=== PATIENT | female | born 1940 | race Caucasian/White ===

== ENCOUNTER → 2016-07-12 | Outpatient (CLI) | payer OTHER ==
[2012-04-07 12:14] VITALS: BP 113/59
--- NOTE | 2016-07-12 22:54 | RAD ---
HISTORY: Cough, wheezing, bronchitis Study: Two views of the chest Comparison: None Findings: The trachea is midline. The cardiac silhouette is enlarged. The lungs are well expanded without fo yoselin infiltrate or effusion. Increased perihilar markings and mild bronchial wall thickening are not ed. The aorta is partially calcified and tortuous IMPRESSION: 1. No acute cardiopulmonary disease. 2. Radiographic findings of bronchitis. Reported By:
== END ==
LOC: RAD 13:50
PROVIDERS: ATTEND Internal Medicine
DX: R06.2 Wheezing (principal); J40 Bronchitis, not specified as acute or chronic
CPT/HCPCS: 71020

== ENCOUNTER 2017-05-22 10:31 | Inpatient (IN) | payer OTHER ==
[2017-05-22] MEDS ORDERED: NS 500 ML IV 500 ML IV ONE (11:09)
--- NOTE | 2017-05-22 11:57 | RAD ---
Examination: Portable AP chest History: SOB and CHF Comparison 07/12/2016 Findings: Continued upper normal heart size with essentially clear lungs and pleural spaces. Impression: No acute chest findings. Reported By:
[2017-05-22 12:01] LABS: BASOPHILS # (AUTO) 0.1 X10^3/uL (0.0-0.1); BASOPHILS % (AUTO) 0.6 % (0.2-1.0); EOSINOPHILS # (AUTO) 0.2 x10^3/uL (0.0-0.2); EOSINOPHILS % (AUTO) 1.8 % (0.9-2.9); LYMPHOCYTES # (AUTO) 1.2 X10^3/uL (1.3-2.9); LYMPHOCYTES % (AUTO) 9.6 % (21.0-51.0); MEAN CORPUSCULAR HEMOGLOBIN 19.8 pg (27.0-34.0); MEAN CORPUSCULAR HGB CONC 29.4 g/dL (33.0-35.0); MEAN CORPUSCULAR VOLUME 67.2 fL (80.0-100.0); MEAN PLATELET VOLUME 7.1 fL (7.4-11.0); MONOCYTES # (AUTO) 0.7 x10^3/uL (0.3-0.8); MONOCYTES % (AUTO) 5.5 % (0.0-13.0); NEUTROPHILS # (AUTO) 10.5 x10^3/uL (2.2-4.8); NEUTROPHILS % (AUTO) 82.5 % (42.0-75.0); PLATELET COUNT 288 X10^3/uL (150.0-450.0); RED BLOOD COUNT 2.42 X10^6/uL (3.5-5.4); WHITE BLOOD COUNT 12.7 X10^3/uL (3.6-10.0)
[2017-05-22 12:08] LABS: HEMATOCRIT 16.3 % (36.0-47.0); HEMOGLOBIN 4.8 g/dL (12.0-16.0)
[2017-05-22 12:17] LABS: CKMB % 5.6 % (<4); CREATINE KINASE MB 1.5 ng/mL (0-4.0); TROPONIN I 0.03 ng/mL (0-1.5)
[2017-05-22 12:20] LABS: HYPOCHROMASIA 3+; MICROCYTOSIS 1+; PLATELET MORPHOLOGY COMMENT NORMAL (NORMAL)
[2017-05-22] MEDS ORDERED: BENADRYL INJ 50 MG VIAL IVP ONE ×2 (12:49→22:21)
[2017-05-22] MEDS ORDERED: TYLENOL 325 MG TAB PO ONE ×2 (12:49→22:23)
[2017-05-22 14:18] LABS: ALBUMIN 3.2 g/dL (3.4-5.0); CALCIUM 9.7 mg/dL (8.5-10.1); CARBON DIOXIDE 24.5 mmol/L (21-32); COR CA(FOR HYPOALB) 10.3 mg/dL (8.5-10.1); CREATININE 1.17 mg/dL (0.55-1.02); TOTAL PROTEIN 6.6 g/dL (6.4-8.2)
--- NOTE | 2017-05-22 14:20 | DR.H&P ---
H&P - History & Physical for Day of: H&P Date: 05/22/17 - Chief Complaint Chief Complaint: SOB, WEAKNESS, DIZZINESS - Allergies Allergies/Adverse Reactions: Allergies Allergy/AdvReac Type Severity Reaction Status Date / Time amoxicillin Allergy Verified 05/22/17 11:41 - History of Present Illness History of Present Illness: 77WF DIRECT ADMIT FROM DR DOUGLAS OFFICE WITH SYMPTOMATIC ANEMIA, DIFFUSE WEAKNESS, DIZZINESS, SOB EVEN AT REST. PT STATES SHE HAD COLONOSCOPY PER DR STEINBERG IN [place] THIS PAST THURSDAY, HAD ONE POLYP REMOVED, WAS TOLD "NO BLEEDING" PT ALSO HAD EGD. PT HAD BEEN HAVING ANEMIA FOR SEVERAL WEEKS. 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 PLAN TO ADMIT FOR EVALUATION OF ANEMIA AND BLOOD TRANSFUSION - Past Medical History Past Medical History: Arthritis, CHF, Coronary Artery Disease, Diabetes, Dyslipidemia, GERD, Hypertension Additional Medical History: AFIB - Past Surgical History Surgical History: Hysterectomy, Joint Replacement, Ortho Surgery - Family History Family Medical History: Coronary Artery Disease, Hypertension - Social History Does patient currently use any type of tobacco product: No Have you used tobacco products in the last 12 months: No Type of Tobacco Use: None Does any household member use tobacco: No Alcohol Use: None Drug Use: None - Review of Systems Constitutional: Weakness Eyes: No Symptoms Reported ENT: No Symptoms Reported Respiratory: Shortness of Breath Cardiovascular: Light Headedness Gastrointestinal: Nausea, Diarrhea Genitourinary: No Symptoms Reported Musculoskeletal: Back Pain Skin: No Symptoms Reported Neurological: Weakness - Physical Exam Vital Signs: Blood Pressure [Left Arm] 113/59 Blood Pressure 113/59 Oriented: Normal Eyes: Normal Ear: Normal Nose: Normal Throat: Normal Respiratory: RLL Diminished, LLL Diminished Cardiovascular: Irregular, Edema : Normal Auscultation: Bowel Sounds: Normal Palpation: Normal Tenderness: Epigastric Skin: Decreased Turgur, Other (DIFFUSE PALLOR) Musculoskeletal: Right, Left, Knee, Back:Lumbar Mood Description: Calm Speech Pattern: Clear, Appropriate - Assessment/Plan (1) SOB (shortness of breath) Status: Acute Plan: admit patient to ICU, admission labs CBC CMP, stool studies, cardiac profile EKG and chest x-ray on admission, urinalysis. Type and cross and transfuse 2 units of packed red blood cells per transfusion protocol, sliding scale insulin for blood sugar, hold anticoagulant therapy. Repeat a.m. labs, CT of the chest with contrast to further evaluate shortness of breath,r/o PE. history of pulmonary nodules. (2) Anemia Status: Acute (3) Upper GI bleed Status: Acute (4) Afib Status: Acute (5) CHF (congestive heart failure) Status: Acute (6) HTN (hypertension) Status: Acute (7) Diabetes Status: Acute
[2017-05-22 15:14] VITALS: BMI 40.6
[2017-05-22] MEDS ORDERED: LASIX IVP ONE (16:56)
[2017-05-22] MEDS: K-DUR TAB 20 MEQ PO PRN (17:13)
[2017-05-22 17:56] LABS: BILIRUBIN,URINE NEGATIVE (NEGATIVE); BLOOD/HEMOGLOBIN,URINE 4+ (NEGATIVE); GLUCOSE, URINE NEGATIVE (NEGATIVE); KETONES,URINE NEGATIVE (NEGATIVE); LEUKOCYTE ESTERASE ,URINE NEGATIVE (NEGATIVE); NITRITES,URINE NEGATIVE (NEGATIVE); PROTEIN,URINE 1+ (NEGATIVE); UROBILINOGEN,URINE NORMAL (NORMAL)
[2017-05-22 17:59] LABS: CKMB % 4.4 % (<4); CREATINE KINASE MB 1.2 ng/mL (0-4.0); TROPONIN I 0.03 ng/mL (0-1.5)
[2017-05-22 18:00] LABS: APPEARANCE,URINE CLEAR (CLEAR); COLOR,URINE YELLOW (YELLOW)
[2017-05-22 18:12] LABS: AMORPHOUS SEDIMENT,UR TRACE /HPF (NEGATIVE); BACTERIA,URINE NEGATIVE /HPF (NEGATIVE); SQUAMOUS EPITHELIAL CELL,UR RARE /HPF (NEGATIVE)
[2017-05-22] MEDS: SNACK - Diabetic Appropriate PO SCH (20:00)
[2017-05-22 23:34] LABS: TROPONIN I 0.04 ng/mL (0-1.5)
[2017-05-23 07:02] LABS: ALANINE AMINOTRANSFERASE 18 Units/L (12-78); ALBUMIN 2.8 g/dL (3.4-5.0); ALKALINE PHOSPHATASE 64 Units/L (46-116); ASPARTATE AMINO TRANSFERASE 12 Units/L (15-37); BLOOD UREA NITROGEN 21 mg/dL (7-18); CALCIUM 9.2 mg/dL (8.5-10.1); CARBON DIOXIDE 27.5 mmol/L (21-32); CHLORIDE 105 mmol/L (98-107); COR CA(FOR HYPOALB) 10.2 mg/dL (8.5-10.1); COR NA(FOR HYPERGLY) 141 mmol/L (136-145); CREATININE 0.92 mg/dL (0.55-1.02); SODIUM 140 mmol/L (136-145); eGFR BLACK RACES > 60 (>60); eGFR NON BLACK RACES > 60 (>60)
[2017-05-23 08:41] LABS: BASOPHILS # (AUTO) 0.1 X10^3/uL (0.0-0.1); BASOPHILS % (AUTO) 0.6 % (0.2-1.0); EOSINOPHILS # (AUTO) 0.3 x10^3/uL (0.0-0.2); EOSINOPHILS % (AUTO) 3.2 % (0.9-2.9); LYMPHOCYTES # (AUTO) 2.3 X10^3/uL (1.3-2.9); MEAN CORPUSCULAR HGB CONC 31.2 g/dL (33.0-35.0); MEAN CORPUSCULAR VOLUME 70.3 fL (80.0-100.0); MEAN PLATELET VOLUME 7.7 fL (7.4-11.0); MONOCYTES # (AUTO) 0.8 x10^3/uL (0.3-0.8); MONOCYTES % (AUTO) 7.8 % (0.0-13.0); NEUTROPHILS # (AUTO) 6.4 x10^3/uL (2.2-4.8); NEUTROPHILS % (AUTO) 65.4 % (42.0-75.0); PLATELET COUNT 241 X10^3/uL (150.0-450.0); RED BLOOD COUNT 2.77 X10^6/uL (3.5-5.4); RED CELL DISTRIBUTION WIDTH 19.5 % (11.6-16.5); WHITE BLOOD COUNT 9.8 X10^3/uL (3.6-10.0)
[2017-05-23 08:52] LABS: HEMATOCRIT 19.5 % (36.0-47.0); HEMOGLOBIN 6.1 g/dL (12.0-16.0)
[2017-05-23 08:53] LABS: PLATELET MORPHOLOGY COMMENT NORMAL (NORMAL)
[2017-05-23 08:55] LABS: ANISOCYTOSIS 2+; HYPOCHROMASIA 2+; MICROCYTOSIS 1+
[2017-05-23 10:49] LABS: IRON 10 ug/dL (50-175); TOTAL IRON BINDING CAPACITY 459 ug/dL (250-450)
[2017-05-23] MEDS ORDERED: BENADRYL INJ 50 MG VIAL ONE (12:01)
[2017-05-23] MEDS ORDERED: TYLENOL 325 MG TAB PO ONE ×2 (12:01→12:04)
[2017-05-23] MEDS ORDERED: BENADRYL INJ 50 MG VIAL IVP ONE (12:03)
[2017-05-23] MEDS ORDERED: NS 500 ML IV 500 ML IV ONE (12:14)
--- NOTE | 2017-05-23 12:17 | CT ---
HISTORY: Shortness of breath. History pulmonary nodules. Study: Computed tomography of the chest: Multiple axial images were obtained throughout the chest a fter the injection of intravascular contrast using CTA protocol. Reconstructed images in mid images submitted. Comparison: PA and lateral chest 07/12/2016, 05/22/2017 portable chest Findings: Examination of the lung parenchyma demonstrates a tiny noncalcified nodule in the right upper lobe me asuring approximately 4 mm in maximum dimension. A small pleural base nodule is noted posteriorly. There are focal areas of scarring within the lung parenchyma bilaterally. There are small pleural-ba sed densities present in several areas suggesting scarring. No parenchymal infiltrates are identifie d. A small nodule is present in the left lateral costophrenic angle measuring approximately 4 mm in maximum dimension. There is enlargement of the right lobe of the thyroid with what appears to be a hypodense nodule rosey uring about 13 mm in maximum dimension. Nonemergent thyroid ultrasound recommended. I see no eviden ce of supraclavicular adenopathy or axillary adenopathy. No evidence of mediastinal adenopathy is id entified. There are small mediastinal lymph nodes present. The heart size is borderline enlarged. There is significant 3 vessel coronary arterial calcification. No appreciable pericardial effusion i s noted. The thoracic aorta is normal in its appearance. Mild calcification is noted. The descending thoraci c aorta is normal. The main pulmonary artery is dilated to 4.2 cm. This suggest pulmonary arterial hypertension. The r ight and left pulmonary arteries are mildly dilated. There appears to be a small filling defect with in a proximal branch of the right main pulmonary artery subtending the right lower lobe. There are w hat appear to most likely be smaller filling defects distally. There is mild reflux of contrast into the inferior vena cava. Examination of the bone windows demonstrates the mild to moderate thoracic spondylosis. IMPRESSION: 1. There appears to be a small partial branch occlusion of the 1st order branches of the right main pulmonary artery as it subtends the right lower lobe. There may be smaller subsegmental defects as w ell. No large central pulmonary emboli are noted. 2. Borderline cardiomegaly with significant coronary arterial calcification. 3. Findings suggesting pulmonary arterial hypertension. 4. Small pulmonary nodules. 5. Nodule in the right thyroid gland. Follow-up nonemergent thyroid ultrasound may be of assistance . Reported By:
[2017-05-23 15:10] LABS: TRANSFERRIN 366 mg/dL (202-364)
[2017-05-23] MEDS: COLACE CAP 100 MG PO SCH ×2 (15:53→20:20)
[2017-05-23] MEDS: PROTONIX INJ 40 MG VIAL IVP SCH ×2 (15:53→20:20)
[2017-05-23 17:13] LABS: HEMATOCRIT 24.2 % (36.0-47.0); HEMOGLOBIN 7.6 g/dL (12.0-16.0)
[2017-05-23] MEDS ORDERED: HEPARIN SODIUM INJ 5000 UNITS IVP ONE (19:08)
[2017-05-23] MEDS: HEPARIN SODIUM IN D5W 25,000 UNITS/500 ML BAG IV PRN (20:28)
[2017-05-23] MEDS: SNACK - Diabetic Appropriate PO SCH (23:46)
[2017-05-24 02:24] LABS: HEMATOCRIT 22.3 % (36.0-47.0); HEMOGLOBIN 7.1 g/dL (12.0-16.0)
[2017-05-24] MEDS ORDERED: HEPARIN SODIUM INJ 5000 UNITS IVP ONE ×2 (03:07→14:38)
[2017-05-24 06:37] LABS: BASOPHILS # (AUTO) 0.2 X10^3/uL (0.0-0.1); BASOPHILS % (AUTO) 1.4 % (0.2-1.0); EOSINOPHILS # (AUTO) 0.4 x10^3/uL (0.0-0.2); EOSINOPHILS % (AUTO) 2.9 % (0.9-2.9); HEMATOCRIT 22.5 % (36.0-47.0); LYMPHOCYTES # (AUTO) 2.5 X10^3/uL (1.3-2.9); LYMPHOCYTES % (AUTO) 16.6 % (21.0-51.0); MEAN CORPUSCULAR HEMOGLOBIN 22.3 pg (27.0-34.0); MEAN CORPUSCULAR HGB CONC 31.1 g/dL (33.0-35.0); MEAN CORPUSCULAR VOLUME 71.8 fL (80.0-100.0); MEAN PLATELET VOLUME 7.4 fL (7.4-11.0); MONOCYTES % (AUTO) 6.4 % (0.0-13.0); NEUTROPHILS # (AUTO) 10.9 x10^3/uL (2.2-4.8); NEUTROPHILS % (AUTO) 72.7 % (42.0-75.0); RED BLOOD COUNT 3.14 X10^6/uL (3.5-5.4)
[2017-05-24 06:44] LABS: ALBUMIN 2.9 g/dL (3.4-5.0); ALKALINE PHOSPHATASE 72 Units/L (46-116); CHLORIDE 104 mmol/L (98-107); eGFR BLACK RACES > 60 (>60); eGFR NON BLACK RACES > 60 (>60)
[2017-05-24 07:02] LABS: ALANINE AMINOTRANSFERASE 19 Units/L (12-78); ASPARTATE AMINO TRANSFERASE 15 Units/L (15-37); BLOOD UREA NITROGEN 16 mg/dL (7-18); CALCIUM 9.8 mg/dL (8.5-10.1); CARBON DIOXIDE 27.2 mmol/L (21-32); COR CA(FOR HYPOALB) 10.7 mg/dL (8.5-10.1); COR NA(FOR HYPERGLY) 141 mmol/L (136-145); CREATININE 0.84 mg/dL (0.55-1.02); SODIUM 140 mmol/L (136-145); TOTAL PROTEIN 6.2 g/dL (6.4-8.2)
[2017-05-24 07:03] LABS: PLATELET COUNT 213 X10^3/uL (150.0-450.0)
[2017-05-24 07:05] LABS: PLATELET MORPHOLOGY COMMENT NORMAL (NORMAL)
[2017-05-24 07:06] LABS: ANISOCYTOSIS 3+; HYPOCHROMASIA 2+; MICROCYTOSIS 1+; TARGET CELLS SLIGHT
[2017-05-24] MEDS ORDERED: DEXFERRUM or INFED 250 MG in NS 500 ML IV 500 ML IV ONE ×2 (09:00→15:00)
[2017-05-24] MEDS ORDERED: DEXFERRUM or INFED 25 MG in NS 100 ML IV 100 ML IV ONE ×2 (09:00→14:00)
--- NOTE | 2017-05-24 09:38 | RAD ---
HISTORY: Chest pain Study: Single-view chest. Comparison: 05/23/2017. Findings: The trachea is midline. The cardiac silhouette is enlarged but unchanged from prior. The lungs are clear without focal infiltrate or effusion. The bony thorax is unremarkable. IMPRESSION: Cardiomegaly without acute cardiopulmonary disease or changes. Reported By:
[2017-05-24] MEDS: PROTONIX INJ 40 MG VIAL IVP SCH ×2 (11:26→21:10)
[2017-05-24] MEDS: HEPARIN SODIUM IN D5W 25,000 UNITS/500 ML BAG IV PRN (11:40)
[2017-05-24] MEDS ORDERED: NS 500 ML IV 500 ML IV ONE (11:56)
[2017-05-24 13:55] LABS: HEMATOCRIT 24.6 % (36.0-47.0); HEMOGLOBIN 7.7 g/dL (12.0-16.0)
[2017-05-24] MEDS: HumuLIN R SUBCUT PRN ×2 (17:55→21:10)
[2017-05-24] MEDS: COLACE CAP 100 MG PO SCH (21:10)
[2017-05-24] MEDS: SNACK - Diabetic Appropriate PO SCH (21:15)
[2017-05-24 22:44] LABS: HEMATOCRIT 22.5 % (36.0-47.0); HEMOGLOBIN 7.1 g/dL (12.0-16.0)
[2017-05-25] MEDS: HEPARIN SODIUM IN D5W 25,000 UNITS/500 ML BAG IV PRN (02:32)
[2017-05-25 04:06] LABS: BASOPHILS # (AUTO) 0.1 X10^3/uL (0.0-0.1); BASOPHILS % (AUTO) 0.7 % (0.2-1.0); EOSINOPHILS # (AUTO) 0.4 x10^3/uL (0.0-0.2); EOSINOPHILS % (AUTO) 2.8 % (0.9-2.9); HEMATOCRIT 21.9 % (36.0-47.0); LYMPHOCYTES # (AUTO) 2.2 X10^3/uL (1.3-2.9); LYMPHOCYTES % (AUTO) 15.7 % (21.0-51.0); MEAN CORPUSCULAR HEMOGLOBIN 22.6 pg (27.0-34.0); MEAN CORPUSCULAR HGB CONC 31.5 g/dL (33.0-35.0); MEAN CORPUSCULAR VOLUME 71.7 fL (80.0-100.0); MEAN PLATELET VOLUME 7.2 fL (7.4-11.0); MONOCYTES # (AUTO) 1.1 x10^3/uL (0.3-0.8); MONOCYTES % (AUTO) 7.9 % (0.0-13.0); NEUTROPHILS % (AUTO) 72.9 % (42.0-75.0); PLATELET COUNT 284 X10^3/uL (150.0-450.0); RED BLOOD COUNT 3.05 X10^6/uL (3.5-5.4); WHITE BLOOD COUNT 13.8 X10^3/uL (3.6-10.0)
[2017-05-25 04:07] LABS: ALANINE AMINOTRANSFERASE 18 Units/L (12-78); ALBUMIN 2.7 g/dL (3.4-5.0); ALKALINE PHOSPHATASE 75 Units/L (46-116); ASPARTATE AMINO TRANSFERASE 18 Units/L (15-37); BLOOD UREA NITROGEN 13 mg/dL (7-18); CALCIUM 9.5 mg/dL (8.5-10.1); CHLORIDE 105 mmol/L (98-107); COR CA(FOR HYPOALB) 10.5 mg/dL (8.5-10.1); COR NA(FOR HYPERGLY) 141 mmol/L (136-145); CREATININE 0.88 mg/dL (0.55-1.02); SODIUM 140 mmol/L (136-145); TOTAL PROTEIN 6.2 g/dL (6.4-8.2); eGFR BLACK RACES > 60 (>60); eGFR NON BLACK RACES > 60 (>60)
[2017-05-25 04:15] LABS: HEMOGLOBIN 6.9 g/dL (12.0-16.0)
[2017-05-25 04:29] LABS: ANISOCYTOSIS 1+; HYPOCHROMASIA 2+; MICROCYTOSIS 1+; PLATELET MORPHOLOGY COMMENT NORMAL (NORMAL)
--- NOTE | 2017-05-25 07:25 | RAD ---
History: CAD, asthma, diabetes Study: AP chest, comparison 05/24/2017 Findings: AP upright chest labeled 707 hours shows the cardiac silhouette to be enlarged. The pulmona ry vasculature is mildly congested. No consolidation or pleural effusion is seen. Impression: Cardiomegaly with mild vascular congestion. No overt CHF or pneumonia is seen. Reported By:
[2017-05-25] MEDS ORDERED: LASIX IVP ONE (09:33)
[2017-05-25] MEDS ORDERED: K-DUR TAB 20 MEQ PO SCH (10:00)
[2017-05-25] MEDS: K-DUR TAB 20 MEQ PO PRN (10:06)
[2017-05-25] MEDS: PROTONIX INJ 40 MG VIAL IVP SCH (10:06)
[2017-05-25] MEDS: HumuLIN R SUBCUT PRN (11:16)
[2017-05-25] MEDS ORDERED: HumuLIN R SUBCUT PRN (12:02)
[2017-05-25] MEDS ORDERED: K-DUR TAB 20 MEQ PO PRN (12:02)
[2017-05-25] MEDS ORDERED: HEPARIN SODIUM IN D5W 25,000 UNITS/500 ML BAG IV PRN (12:02)
[2017-05-25 12:04] LABS: HEMATOCRIT 24.8 % (36.0-47.0); HEMOGLOBIN 7.8 g/dL (12.0-16.0)
[2017-05-25 15:40] VITALS: BP 147/62
[2017-05-25] MEDS ORDERED: SNACK - Diabetic Appropriate PO SCH ×2 (20:00)
[2017-05-25] MEDS ORDERED: ZOCOR TAB 20 MG PO SCH ×2 (21:00)
[2017-05-25] MEDS ORDERED: COLACE CAP 100 MG PO SCH (21:00)
[2017-05-26] MEDS ORDERED: LANOXIN PO SCH ×2 (09:00)
[2017-05-26] MEDS ORDERED: NexIUM PO SCH ×2 (09:00)
[2017-05-26] MEDS ORDERED: REGLAN TAB 10 MG PO SCH ×2 (09:00)
[2017-05-26] MEDS ORDERED: FOLIC ACID TAB 1 MG PO SCH ×2 (09:00)
[2017-05-29 07:17] LABS: ANTI-NUCLEAR ANTIBODY TEST None Detected (None Detected); CANCER ANTIGEN 27.29 13.8 U/mL (0.0-40.0)
[2017-06-01 06:50] LABS: PROTEIN C ACTIVITY SEE COMMENTS %
== END 2017-05-25 15:25 | disposition short-term general hospital (02) | DRG 811 ==
LOC: ICU 10:31 → UNDOADMIN 10:31 → ICU 10:41
PROVIDERS: ADMIT Internal Medicine; ATTEND Internal Medicine
PROC: 30233N1 Transfusion of Nonautologous Red Blood Cells into Peripheral Vein, Percutaneous Approach (ICD-10-PCS; principal; 2017-05-22)
PROC: 30233N1 Transfusion of Nonautologous Red Blood Cells into Peripheral Vein, Percutaneous Approach (ICD-10-PCS; 2017-05-22)
PROC: 30233N1 Transfusion of Nonautologous Red Blood Cells into Peripheral Vein, Percutaneous Approach (ICD-10-PCS; 2017-05-23)
DX: D64.89 Other specified anemias (principal); I26.99 Other pulmonary embolism without acute cor pulmonale; K92.2 Gastrointestinal hemorrhage, unspecified; R53.1 Weakness; Z79.01 Long term (current) use of anticoagulants; I48.91 Unspecified atrial fibrillation; E11.65 Type 2 diabetes mellitus with hyperglycemia; E78.2 Mixed hyperlipidemia; K21.9 Gastro-esophageal reflux disease without esophagitis; R94.31 Abnormal electrocardiogram [ECG] [EKG]; D50.8 Other iron deficiency anemias; I10 Essential (primary) hypertension; I50.9 Heart failure, unspecified
CPT/HCPCS: 36415; 36430; 71045; 71275; 80053; 81001; 81241; 82270; 82378; 82550; 82553; 82607; 82728; 82746; 83540; 83550; 84311; 84466; 84484; 85014; 85018; 85025; 85303; 85306; 85730; 86308; 86316; 86850; 86900; 86901; 86922; 87045; 87427; 87493; 87899; 93005; 93010; A4222; C9113; P9016; J1200; J1644; J1750; J1815; J1940

== ENCOUNTER 2021-04-05 09:42 | Observation (INO) ==
--- NOTE | 2021-04-05 12:24 | DR.H&P ---
H&P - History & Physical for Day of: H&P Date: 04/05/21 - Chief Complaint Chief Complaint: SWELLING ALL OVER, WEAKNESS AND SOB - History of Present Illness History of Present Illness: PT IS 81 WF DIRECT ADMIT FROM DR BELLO OFFICE WITH CO SWELLING ALL OVER, CHF EXACERBATIN FAILED OUTPT TREATMENT. PT HAS TAKING LASIX PO AND IM LASIX WITH ONLY 3LBS WEIGHT LOSS, REPORTS PER HOME HEALTH TOTAL WEIGHT GAIN 20LBS FROM BASE LINE IN PAST 3 WEEKS. PT HAS PMH OF AFIB, ON ELIQUIS, OA, CHF, CAD, DM. PT ADMITTED FOR TREATMENT OF ACUTE ILLNESS. - Past Medical History Past Medical History: Coronary Artery Disease, Hypertension, Dyslipidemia, Diabetes, GERD, Arthritis, CHF Additional Medical History: AFIB - Past Surgical History Surgical History: Hysterectomy, Joint Replacement, Ortho Surgery - Family History Family Medical History: Coronary Artery Disease, Hypertension - Social History Does patient currently use any type of tobacco product: No Have you used tobacco products in the last 12 months: No Type of Tobacco Use: None Does any household member use tobacco: No Alcohol Use: None Drug Use: None Risks, benefits, and alternatives of opioids discussed: No Prescription drug monitoring program results: PDMP reviewed and no concerns identified - Medications Home Medications: amoxicillin Allergy (Verified 05/22/17 11:41) - Review of Systems Constitutional: Weakness Eyes: No Symptoms Reported ENT: No Symptoms Reported Respiratory: Shortness of Breath, SOB with Excertion Cardiovascular: Edema Gastrointestinal: No Symptoms Reported Genitourinary: No Symptoms Reported Musculoskeletal: No Symptoms Reported Skin: No Symptoms Reported Neurological: Weakness - Physical Exam Vital Signs: Blood Pressure [Left Arm] 96/52 Oriented: Normal Eyes: Normal Ear: Normal Nose: Normal Throat: Normal Respiratory: RLL Diminished, LLL Diminished Cardiovascular: Normal : Normal Auscultation: Bowel Sounds: Normal Tenderness: Normal Skin: Decreased Turgur Musculoskeletal: Right, Left, Shoulder, Back:Lumbar Psychiatric: Anxiety Affect: Angry Speech Pattern: Clear, Appropriate - Assessment/Plan (1) CHF (congestive heart failure) Status: Acute Plan: ADMIT, SERIAL CE, EKG. CXR BNP ON ADMISSION. STRICT I &OS, DAILY WEIGHTS. VERIFY HOME MEDICATION. BP CONTROL, BS CONTROL, CONTINUE ELIQUIS (2) SOB (shortness of breath) Status: Acute (3) Anemia Status: Acute (4) Afib Status: Acute (5) HTN (hypertension) Status: Acute (6) Diabetes Status: Acute - Allergies Allergies/Adverse Reactions: Allergies Allergy/AdvReac Type Severity Reaction Status Date / Time amoxicillin Allergy Verified 05/22/17 11:41
[2021-04-05 12:26] LABS: BASOPHILS % (AUTO) 0.7 % (0.2-1.0); EOSINOPHILS # (AUTO) 0.2 x10^3/uL (0.0-0.2); EOSINOPHILS % (AUTO) 3.1 % (0.9-2.9); HEMATOCRIT 30.2 % (36.0-47.0); HEMOGLOBIN 9.8 g/dL (12.0-16.0); LYMPHOCYTES # (AUTO) 1.4 X10^3/uL (1.3-2.9); MEAN CORPUSCULAR HEMOGLOBIN 28.4 pg (27.0-34.0); MEAN CORPUSCULAR HGB CONC 32.5 g/dL (33.0-35.0); MEAN CORPUSCULAR VOLUME 87.4 fL (80.0-100.0); MEAN PLATELET VOLUME 7.6 fL (7.4-11.0); MONOCYTES # (AUTO) 0.5 x10^3/uL (0.3-0.8); NEUTROPHILS # (AUTO) 4.1 x10^3/uL (2.2-4.8); NEUTROPHILS % (AUTO) 66.2 % (42.0-75.0); PLATELET COUNT 181 X10^3/uL (150.0-450.0); RED BLOOD COUNT 3.46 X10^6/uL (3.5-5.4); RED CELL DISTRIBUTION WIDTH 22.8 % (11.6-16.5); WHITE BLOOD COUNT 6.2 X10^3/uL (3.6-10.0)
[2021-04-05 12:42] LABS: ANISOCYTOSIS 2+; OVALOCYTES 1+; PLATELET MORPHOLOGY COMMENT NORMAL (NORMAL)
[2021-04-05 12:44] LABS: MICROCYTOSIS SLIGHT
[2021-04-05 12:46] LABS: ALANINE AMINOTRANSFERASE 37 Units/L (12-78); ALBUMIN 3.3 g/dL (3.4-5.0); ALKALINE PHOSPHATASE 104 Units/L (46-116); ASPARTATE AMINO TRANSFERASE 18 Units/L (15-37); BLOOD UREA NITROGEN 36 mg/dL (7-18); CALCIUM 9.6 mg/dL (8.5-10.1); CARBON DIOXIDE 38.2 mmol/L (21-32); CHLORIDE 105 mmol/L (98-107); CKMB % 3.6 % (<4); COR CA(FOR HYPOALB) 10.2 mg/dL (8.5-10.1); COR NA(FOR HYPERGLY) 149 mmol/L (136-145); CREATINE KINASE 28 Units/L (26-192); CREATINE KINASE MB < 1.0 ng/mL (0-4.0); CREATININE 1.36 mg/dL (0.55-1.02); MAGNESIUM 1.9 mg/dL (1.7-2.9); SODIUM 148 mmol/L (136-145); TOTAL PROTEIN 6.5 g/dL (6.4-8.2); TROPONIN I < 0.02 ng/mL (0-1.5); eGFR NON BLACK RACES 39 (>60)
[2021-04-05] MEDS ORDERED: LASIX IVP SCH (13:00)
--- NOTE | 2021-04-05 13:18 | RAD ---
HISTORYCHF, SOBSTUDYCHEST, PA/LAT ADULTCOMPARISONNoneFINDINGSThe cardiomediastinal silhouette is widened. Left-sided pacer and pacer wires demonstrate expected positioning. Pulmonary vascular congestion and increased interstitial markings. No acute airspace disease. No pneumothorax. The bony thorax appears intact.IMPRESSIONCardiomegaly and congestion without edema.Electronically signed by: CHANTELLE STONE (Apr 05, 2021 13:16:48)
[2021-04-05 16:29] LABS: BILIRUBIN,URINE NEGATIVE (NEGATIVE); BLOOD/HEMOGLOBIN,URINE NEGATIVE (NEGATIVE); GLUCOSE, URINE NEGATIVE (NEGATIVE); KETONES,URINE NEGATIVE (NEGATIVE); LEUKOCYTE ESTERASE ,URINE NEGATIVE (NEGATIVE); NITRITES,URINE NEGATIVE (NEGATIVE); PROTEIN,URINE NEGATIVE (NEGATIVE); UROBILINOGEN,URINE NORMAL (NORMAL)
[2021-04-05 16:48] LABS: APPEARANCE,URINE CLEAR (CLEAR); COLOR,URINE STRAW (YELLOW)
--- NOTE | 2021-04-05 21:02 | PCM.PROG ---
Progress Note - Subjective Subjective: PATIENT IS AN 81 YO WF WHO WAS ADMITTED DUE TO CHF, WEIGHT, GAIN, EDEMA, SOB. PATIENT REPORTS SOME IMPROVEMENT IN BREATHING. PATIENT HAS HAD AN ADEQUATE OUTPUT SINCE ADMISSION WITH ADMIN OF LASIX. PATIENT REPORTS WEAKNESS. NO OTHER CONCERNS PRESENT. - Past Medical Family Social History Past Med/Fam/Surg Hx: No changes since H&P Allergies: Allergies amoxicillin Allergy (Verified 05/22/17 11:41) - Review of Systems ROS: No change since H&P - Vital Signs and I&O's Vital Signs: Temperature 97.9 F Pulse Rate [Left Brachial] 70 Respiratory Rate 20 Blood Pressure [Left Arm] 107/57 Blood Pressure 125/72 O2 Sat by Pulse Oximetry 90 Intake and Output: Intake & Output 04/02/21 04/03/21 04/04/21 04/05/21 23:59 23:59 23:59 23:59 Intake Total 580 / 580 Output Total 900 / 900 Balance -320 / -320 - Physical Exam Oriented: Normal, Time, Person, Place Eyes: Normal Ear: Normal Nose: Normal Throat: Normal Respiratory: Generalized, Diminished, Rales Cardiovascular: Normal, Edema (+3 PITTING EDEMA) : Normal Auscultation: Bowel Sounds: Normal Palpation: Normal Tenderness: Normal Skin: Normal Musculoskeletal: Right, Left, Shoulder, Back:Lumbar, Instability Psychiatric: Normal Mood Description: Calm Affect: Normal Speech Pattern: Clear, Appropriate - Laboratory and Diagnostics Result Diagrams: 04/05/21 12:17 04/05/21 12:17 Labs: Laboratory WBC 6.2 X10^3/uL (3.6-10.0) 04/05/21 12:17 RBC 3.46 X10^6/uL (3.5-5.4) L 04/05/21 12:17 Hgb 9.8 g/dL (12.0-16.0) L 04/05/21 12:17 Hct 30.2 % (36.0-47.0) L 04/05/21 12:17 MCV 87.4 fL (80.0-100.0) 04/05/21 12:17 MCH 28.4 pg (27.0-34.0) 04/05/21 12:17 MCHC 32.5 g/dL (33.0-35.0) L 04/05/21 12:17 RDW 22.8 % (11.6-16.5) H 04/05/21 12:17 Plt Count 181 X10^3/uL (150.0-450.0) 04/05/21 12:17 Plt Count Comment Adequate (ADEQUATE) 04/05/21 12:17 MPV 7.6 fL (7.4-11.0) 04/05/21 12:17 Neut % (Auto) 66.2 % (42.0-75.0) 04/05/21 12:17 Lymph % (Auto) 22.0 % (21.0-51.0) 04/05/21 12:17 [place] % (Auto) 8.0 % (0.0-13.0) 04/05/21 12:17 Eos % (Auto) 3.1 % (0.9-2.9) H 04/05/21 12:17 Baso % (Auto) 0.7 % (0.2-1.0) 04/05/21 12:17 Neut # (Auto) 4.1 x10^3/uL (2.2-4.8) 04/05/21 12:17 Lymph # (Auto) 1.4 X10^3/uL (1.3-2.9) 04/05/21 12:17 [place] # (Auto) 0.5 x10^3/uL (0.3-0.8) 04/05/21 12:17 Eos # (Auto) 0.2 x10^3/uL (0.0-0.2) 04/05/21 12:17 Baso # (Auto) 0.0 X10^3/uL (0.0-0.1) 04/05/21 12:17 Absolute Nucleated RBC 0.1 /100WBC 04/05/21 12:17 Plt Morphology Comment Normal (NORMAL) 04/05/21 12:17 RBC Morphology Abnormal (NORMAL) A 04/05/21 12:17 Anisocytosis 2+ A 04/05/21 12:17 Microcytosis Slight A 04/05/21 12:17 Ovalocytes 1+ A 04/05/21 12:17 Sodium 148 mmol/L (136-145) H 04/05/21 12:17 Corrected Sodium 149 mmol/L (136-145) H 04/05/21 12:17 Potassium 3.7 mmol/L (3.5-5.1) 04/05/21 12:17 Chloride 105 mmol/L (98-107) 04/05/21 12:17 Carbon Dioxide 38.2 mmol/L (21-32) H 04/05/21 12:17 BUN 36 mg/dL (7-18) H 04/05/21 12:17 Creatinine 1.36 mg/dL (0.55-1.02) H 04/05/21 12:17 Est GFR (MDRD) Af Amer 48 (>60) L 04/05/21 12:17 Est GFR (MDRD) Non-Af 39 (>60) L 04/05/21 12:17 Glucose 125 mg/dL (65-99) H 04/05/21 12:17 POC Glucose (mg/dL) 177 mg/dL (65-99) H 04/05/21 20:28 Calcium 9.6 mg/dL (8.5-10.1) 04/05/21 12:17 Corrected Calcium 10.2 mg/dL (8.5-10.1) H 04/05/21 12:17 Magnesium 1.9 mg/dL (1.7-2.9) 04/05/21 12:17 Total Bilirubin 0.40 mg/dL (0.2-1.0) 04/05/21 12:17 AST 18 Units/L (15-37) 04/05/21 12:17 ALT 37 Units/L (12-78) 04/05/21 12:17 Alkaline Phosphatase 104 Units/L (46-116) 04/05/21 12:17 Creatine Kinase 28 Units/L (26-192) 04/05/21 12:17 CK-MB (CK-2) < 1.0 ng/mL (0-4.0) 04/05/21 12:17 CK/CKMB % Calc 3.6 % (<4) 04/05/21 12:17 Troponin I < 0.02 ng/mL (0-1.5) 04/05/21 12:17 B-Natriuretic Peptide 105 pg/mL (0-79) H 04/05/21 12:17 Total Protein 6.5 g/dL (6.4-8.2) 04/05/21 12:17 Albumin 3.3 g/dL (3.4-5.0) L 04/05/21 12:17 Globulin 3.2 g/dL (2.5-4.5) 04/05/21 12:17 Albumin/Globulin Ratio 1.0 Ratio (1.1-2.1) L 04/05/21 12:17 Specimen Type Clean catch urine 04/05/21 16:20 Urine Color Straw (YELLOW) 04/05/21 16:20 Urine Appearance Clear (CLEAR) 04/05/21 16:20 Urine pH 7.0 (5.0 - 8.0) 04/05/21 16:20 Ur Specific [place] 1.010 (1.000-1.030) 04/05/21 16:20 Urine Protein Negative (NEGATIVE) 04/05/21 16:20 Urine Glucose (UA) Negative (NEGATIVE) 04/05/21 16:20 Urine Ketones Negative (NEGATIVE) 04/05/21 16:20 Urine Occult Blood Negative (NEGATIVE) 04/05/21 16:20 Urine Nitrite Negative (NEGATIVE) 04/05/21 16:20 Urine Bilirubin Negative (NEGATIVE) 04/05/21 16:20 Urine Urobilinogen Normal (NORMAL) 04/05/21 16:20 Ur Leukocyte Esterase Negative (NEGATIVE) 04/05/21 16:20 SARS-CoV-2 (PCR) Negative (NEGATIVE) 04/05/21 10:41 Influenza Type A (PCR) Negative (NEGATIVE) 04/05/21 10:41 Influenza Type B (PCR) Negative (NEGATIVE) 04/05/21 10:41 RSV (PCR) Negative (NEGATIVE) 04/05/21 10:41 - Plan (1) CHF (congestive heart failure) Status: Acute Qualifiers: Heart failure chronicity: acute on chronic Plan: ADMIT, SERIAL CE, EKG. CXR BNP ON ADMISSION. STRICT I &OS, DAILY WEIGHTS. VERIFY HOME MEDICATION. BP CONTROL, BS CONTROL, CONTINUE ELIQUIS (2) Anemia Status: Chronic (3) Afib Status: Chronic (4) HTN (hypertension) Status: Chronic (5) Diabetes Status: Chronic
[2021-04-05] MEDS ORDERED: ULTRAM PO PRN (21:07)
[2021-04-05 21:53] LABS: BASOPHILS # (AUTO) 0.1 X10^3/uL (0.0-0.1); BASOPHILS % (AUTO) 1.9 % (0.2-1.0); EOSINOPHILS # (AUTO) 0.2 x10^3/uL (0.0-0.2); EOSINOPHILS % (AUTO) 3.4 % (0.9-2.9); HEMATOCRIT 27.4 % (36.0-47.0); LYMPHOCYTES # (AUTO) 1.2 X10^3/uL (1.3-2.9); LYMPHOCYTES % (AUTO) 19.1 % (21.0-51.0); MEAN CORPUSCULAR HEMOGLOBIN 28.6 pg (27.0-34.0); MEAN CORPUSCULAR HGB CONC 32.8 g/dL (33.0-35.0); MEAN CORPUSCULAR VOLUME 87.2 fL (80.0-100.0); MEAN PLATELET VOLUME 7.9 fL (7.4-11.0); MONOCYTES # (AUTO) 0.4 x10^3/uL (0.3-0.8); MONOCYTES % (AUTO) 6.7 % (0.0-13.0); NEUTROPHILS # (AUTO) 4.4 x10^3/uL (2.2-4.8); NEUTROPHILS % (AUTO) 68.9 % (42.0-75.0); PLATELET COUNT 142 X10^3/uL (150.0-450.0); RED BLOOD COUNT 3.14 X10^6/uL (3.5-5.4); RED CELL DISTRIBUTION WIDTH 22.8 % (11.6-16.5); WHITE BLOOD COUNT 6.4 X10^3/uL (3.6-10.0)
[2021-04-05 22:00] LABS: PLATELET MORPHOLOGY COMMENT NORMAL (NORMAL)
[2021-04-05 22:01] LABS: ANISOCYTOSIS 2+; MICROCYTOSIS SLIGHT; OVALOCYTES PRESENT
[2021-04-05 22:07] LABS: ALBUMIN 2.8 g/dL (3.4-5.0); CALCIUM 9.3 mg/dL (8.5-10.1); CARBON DIOXIDE 36.8 mmol/L (21-32); COR CA(FOR HYPOALB) 10.3 mg/dL (8.5-10.1); CREATININE 1.3 mg/dL (0.55-1.02); TOTAL PROTEIN 5.6 g/dL (6.4-8.2)
[2021-04-05] MEDS: LASIX IVP SCH (22:56)
[2021-04-05] MEDS: ELIQUIS PO SCH (22:56)
[2021-04-05] MEDS: LYRICA CAP 150 mg PO SCH (22:56)
[2021-04-06] MEDS: LYRICA CAP 150 mg PO SCH ×3 (05:20→21:30)
--- NOTE | 2021-04-06 06:15 | RAD ---
HISTORYSOB HX: HTN, ASTHMA, DM SX: PACEMAKER, HYSTERECTOMYSTUDYCHEST, 1 [id number]/2021FINDINGSThe trachea is midline. Permanent pacing device. The cardiac silhouette is mildly enlarged.. Mild pulmonary vascular congestion. The lungs are clear of acute consolidation. No pleural effusion or pneumothorax. The bony thorax is unremarkable.IMPRESSIONStable portable chest.Electronically signed by: César Gonsales (Apr 06, 2021 06:14:52)
[2021-04-06 06:45] LABS: BASOPHILS % (AUTO) 0.7 % (0.2-1.0); EOSINOPHILS # (AUTO) 0.2 x10^3/uL (0.0-0.2); EOSINOPHILS % (AUTO) 3.8 % (0.9-2.9); HEMATOCRIT 27.5 % (36.0-47.0); LYMPHOCYTES # (AUTO) 1.4 X10^3/uL (1.3-2.9); LYMPHOCYTES % (AUTO) 21.4 % (21.0-51.0); MEAN CORPUSCULAR HEMOGLOBIN 28.4 pg (27.0-34.0); MEAN CORPUSCULAR HGB CONC 32.6 g/dL (33.0-35.0); MEAN CORPUSCULAR VOLUME 87.2 fL (80.0-100.0); MEAN PLATELET VOLUME 7.9 fL (7.4-11.0); MONOCYTES # (AUTO) 0.5 x10^3/uL (0.3-0.8); MONOCYTES % (AUTO) 7.8 % (0.0-13.0); NEUTROPHILS # (AUTO) 4.3 x10^3/uL (2.2-4.8); NEUTROPHILS % (AUTO) 66.3 % (42.0-75.0); PLATELET COUNT 153 X10^3/uL (150.0-450.0); RED BLOOD COUNT 3.16 X10^6/uL (3.5-5.4); RED CELL DISTRIBUTION WIDTH 22.5 % (11.6-16.5); WHITE BLOOD COUNT 6.5 X10^3/uL (3.6-10.0)
[2021-04-06 06:58] LABS: ALANINE AMINOTRANSFERASE 28 Units/L (12-78); ALBUMIN 2.8 g/dL (3.4-5.0); ALKALINE PHOSPHATASE 88 Units/L (46-116); ASPARTATE AMINO TRANSFERASE 14 Units/L (15-37); BLOOD UREA NITROGEN 31 mg/dL (7-18); CALCIUM 9.2 mg/dL (8.5-10.1); CARBON DIOXIDE 37.6 mmol/L (21-32); CHLORIDE 105 mmol/L (98-107); COR CA(FOR HYPOALB) 10.2 mg/dL (8.5-10.1); SODIUM 147 mmol/L (136-145); TOTAL PROTEIN 5.6 g/dL (6.4-8.2); eGFR NON BLACK RACES 46 (>60)
[2021-04-06 07:05] LABS: ANISOCYTOSIS 2+; MICROCYTOSIS SLIGHT; OVALOCYTES 1+; PLATELET MORPHOLOGY COMMENT NORMAL (NORMAL)
[2021-04-06 09:03] VITALS: BMI 42.9
[2021-04-06] MEDS: ELIQUIS PO SCH ×2 (09:24→20:32)
[2021-04-06] MEDS: LASIX IVP SCH (09:24)
[2021-04-06] MEDS: ZOCOR TAB 20 MG PO SCH (20:32)
[2021-04-07] MEDS: LYRICA CAP 150 mg PO SCH ×2 (05:36→21:05)
[2021-04-07 05:37] LABS: BASOPHILS % (AUTO) 0.5 % (0.2-1.0); EOSINOPHILS # (AUTO) 0.2 x10^3/uL (0.0-0.2); EOSINOPHILS % (AUTO) 3.5 % (0.9-2.9); HEMATOCRIT 27.3 % (36.0-47.0); HEMOGLOBIN 8.8 g/dL (12.0-16.0); LYMPHOCYTES # (AUTO) 1.3 X10^3/uL (1.3-2.9); LYMPHOCYTES % (AUTO) 22.8 % (21.0-51.0); MEAN CORPUSCULAR HEMOGLOBIN 28.4 pg (27.0-34.0); MEAN CORPUSCULAR HGB CONC 32.4 g/dL (33.0-35.0); MEAN CORPUSCULAR VOLUME 87.6 fL (80.0-100.0); MEAN PLATELET VOLUME 7.8 fL (7.4-11.0); MONOCYTES # (AUTO) 0.6 x10^3/uL (0.3-0.8); MONOCYTES % (AUTO) 9.6 % (0.0-13.0); NEUTROPHILS # (AUTO) 3.7 x10^3/uL (2.2-4.8); NEUTROPHILS % (AUTO) 63.6 % (42.0-75.0); PLATELET COUNT 151 X10^3/uL (150.0-450.0); RED BLOOD COUNT 3.11 X10^6/uL (3.5-5.4); RED CELL DISTRIBUTION WIDTH 22.4 % (11.6-16.5); WHITE BLOOD COUNT 5.9 X10^3/uL (3.6-10.0)
[2021-04-07 05:56] LABS: ALBUMIN 2.6 g/dL (3.4-5.0); CALCIUM 9.4 mg/dL (8.5-10.1); CARBON DIOXIDE 37.2 mmol/L (21-32); COR CA(FOR HYPOALB) 10.5 mg/dL (8.5-10.1); CREATININE 1.2 mg/dL (0.55-1.02); TOTAL PROTEIN 5.6 g/dL (6.4-8.2)
[2021-04-07 06:14] LABS: PLATELET MORPHOLOGY COMMENT NORMAL (NORMAL)
[2021-04-07 06:15] LABS: ANISOCYTOSIS 2+; HYPOCHROMASIA SLIGHT
--- NOTE | 2021-04-07 07:29 | RAD ---
HISTORYCHFSTUDYCHEST x-ray, 1 VIEWCOMPARISONX-ray from previous dayFINDINGSPacemaker leads are unchanged in position. There is persistent CHF. No pulmonary edema is seen. No pneumothorax or pleural effusion is seen.IMPRESSIONPersistent CHF.Electronically signed by: Franklin Oneal (Apr 07, 2021 07:27:50)
[2021-04-07] MEDS ORDERED: LASIX IVP SCH (09:00)
[2021-04-07] MEDS: ELIQUIS PO SCH ×2 (09:05→21:05)
[2021-04-07] MEDS ORDERED: INFeD or DEXFERRUM 25 MG in NS 100 ML IV 100 ML IV ONE (11:31)
[2021-04-07] MEDS ORDERED: INFeD or DEXFERRUM 975 MG in NS 500 ML IV 500 ML IV ONE (11:33)
[2021-04-07 12:05] LABS: IRON 24 ug/dL (50-175)
[2021-04-07] MEDS: CORDARONE TAB 200 MG PO SCH (12:40)
[2021-04-07] MEDS: COREG TAB 6.25 MG PO SCH ×2 (12:40→21:10)
[2021-04-07] MEDS: ALBUMIN HUMAN 25%- 100 ML 100 ML IV SCH ×2 (12:40→21:52)
[2021-04-07] MEDS ORDERED: NS 250 ML IV 250 ML IV ONE (12:54)
[2021-04-07] MEDS: ZOCOR TAB 20 MG PO SCH (21:05)
[2021-04-08 06:30] LABS: BASOPHILS % (AUTO) 0.8 % (0.2-1.0); EOSINOPHILS # (AUTO) 0.2 x10^3/uL (0.0-0.2); EOSINOPHILS % (AUTO) 3.5 % (0.9-2.9); HEMATOCRIT 27.1 % (36.0-47.0); HEMOGLOBIN 8.8 g/dL (12.0-16.0); LYMPHOCYTES # (AUTO) 1.2 X10^3/uL (1.3-2.9); LYMPHOCYTES % (AUTO) 21.9 % (21.0-51.0); MEAN CORPUSCULAR HEMOGLOBIN 28.5 pg (27.0-34.0); MEAN CORPUSCULAR HGB CONC 32.4 g/dL (33.0-35.0); MEAN CORPUSCULAR VOLUME 88.2 fL (80.0-100.0); MEAN PLATELET VOLUME 7.6 fL (7.4-11.0); MONOCYTES # (AUTO) 0.5 x10^3/uL (0.3-0.8); MONOCYTES % (AUTO) 8.4 % (0.0-13.0); NEUTROPHILS # (AUTO) 3.6 x10^3/uL (2.2-4.8); NEUTROPHILS % (AUTO) 65.4 % (42.0-75.0); PLATELET COUNT 140 X10^3/uL (150.0-450.0); RED BLOOD COUNT 3.07 X10^6/uL (3.5-5.4); RED CELL DISTRIBUTION WIDTH 21.8 % (11.6-16.5); WHITE BLOOD COUNT 5.5 X10^3/uL (3.6-10.0)
[2021-04-08 06:51] LABS: ALANINE AMINOTRANSFERASE 25 Units/L (12-78); ALBUMIN 3.1 g/dL (3.4-5.0); ALKALINE PHOSPHATASE 84 Units/L (46-116); ASPARTATE AMINO TRANSFERASE 15 Units/L (15-37); BLOOD UREA NITROGEN 28 mg/dL (7-18); CALCIUM 9.6 mg/dL (8.5-10.1); CARBON DIOXIDE 37.7 mmol/L (21-32); CHLORIDE 105 mmol/L (98-107); COR CA(FOR HYPOALB) 10.3 mg/dL (8.5-10.1); COR NA(FOR HYPERGLY) 147 mmol/L (136-145); CREATININE 0.94 mg/dL (0.55-1.02); SODIUM 146 mmol/L (136-145); TOTAL PROTEIN 5.9 g/dL (6.4-8.2); eGFR NON BLACK RACES > 60 (>60)
[2021-04-08 07:18] LABS: PLATELET MORPHOLOGY COMMENT NORMAL (NORMAL)
[2021-04-08 07:19] LABS: ANISOCYTOSIS 1+; HYPOCHROMASIA SLIGHT; OVALOCYTES 2+
[2021-04-08] MEDS ORDERED: LINZESS PO SCH (09:00)
[2021-04-08] MEDS: ALBUMIN HUMAN 25%- 100 ML 100 ML IV SCH (09:24)
[2021-04-08] MEDS: CORDARONE TAB 200 MG PO SCH (09:25)
[2021-04-08] MEDS: LYRICA CAP 150 mg PO SCH (09:25)
[2021-04-08] MEDS: ELIQUIS PO SCH (09:26)
[2021-04-08] MEDS: COREG TAB 6.25 MG PO SCH (09:26)
--- NOTE | 2021-04-08 11:23 | RAD ---
HISTORYCHF HX: HTN, ASTHMA, DM.brSTUDYCHEST, 1 [id number]/2021FINDINGSTrachea is midline. There is stable cardiomegaly. There is a left-sided pacemaker with 2 leads. There is no evidence of focal pneumonia, pneumothorax or pleural effusions. There is chronic perihilar thickening with central vascular congestion without krysten pulmonary edema.IMPRESSIONCentral vascular congestion without krysten pulmonary edema. Chronic changes in the perihilar region and in the left baseElectronically signed by: Kerrie Yin (Apr 08, 2021 11:22:53)
[2021-04-08 12:07] VITALS: BP 130/61
[2021-04-12] MEDS ORDERED: ELIQUIS PO SCH (21:07)
== END 2021-04-08 14:00 | disposition home health service (06) ==
LOC: MED/SURG
PROVIDERS: ADMIT Internal Medicine; ATTEND Internal Medicine
DX: D50.8 Other iron deficiency anemias; Z20.822 Contact with and (suspected) exposure to COVID-19; R94.31 Abnormal electrocardiogram [ECG] [EKG]; I50.9 Heart failure, unspecified; E87.0 Hyperosmolality and hypernatremia; I25.10 Atherosclerotic heart disease of native coronary artery without angina pectoris; E11.65 Type 2 diabetes mellitus with hyperglycemia; R79.89 Other specified abnormal findings of blood chemistry; R60.0 Localized edema; I48.91 Unspecified atrial fibrillation; Z79.01 Long term (current) use of anticoagulants; I11.0 Hypertensive heart disease with heart failure; R06.02 Shortness of breath

== ENCOUNTER 2021-11-02 15:31 | Inpatient (IN) ==
[2021-11-02 15:55] LABS: ABG ALLEN TEST POS; ABG BASE EXCESS 11.4 mmol/L (-2.0-2.0); ABG HCO3 36.5 mmol/L (22-26)
--- NOTE | 2021-11-02 16:19 | DR.GENAD ---
HPI Time Seen Time Seen by Provider: 11/02/21 16:17 PCP Primary Care Physician: SREEDHAR MURCIA Complaint/Symptoms Chief Complaint Doctors Comments: 1 WEEK H/O BRIGHT RED BLOOD FROM RECTUM AND PROGRESSIVE WEAKNESS AND SWELLING OF BILATERAL LEGS. H/O CHF AND AFIB. Chief Complaint:: PT C/O 1 WEEK HISTORY OF BRIGHT RED BLOOD PER RECTUM, PROGRESSIVELY WORSENING GENERALIZED WEAKNESS AND GENERALIZED EDEMA INTO BILATERAL LOWER EXTREMITIES, FACE, AND ARMS. PT ALSO HAD LOW BP THIS MORNING WITH BP 99/49. PT ALSO C/O SOB WITH EXERTION. DENIES ANY PAIN, FEVER, NAUSE OR VOMITING. COVID-19 Coronavirus risk:travel/contact w/high risk person: No Has patient experienced Coronavirus symptoms: No Source History Provided: Patient Mode of Arrival Mode of Arrival: Ambulatory Timing Onset of Chief Complaint: 11/02/21 PMH PMH Past Medical History: Yes Past Medical History: Arthritis, CHF, Coronary Artery Disease, Diabetes, Hypertension and Kidney Stones Past Medical History Comment: AFIB Past Surgical History: Yes Surgical History: Angioplasty/Stents, Appendectomy, Cholecystectomy and Hysterectomy Past Surgical History Comment: BILATERAL TKA, CERVICAL DISKECTOMY Family History History of Family Medical Conditions: Yes Family Medical History: Diabetes Mellitus, Cancer, [place], Coronary Artery Disease, Heart Failure and Hypertension Social History Does patient currently use any type of tobacco product: No Have you used tobacco products in the last 12 months: No Type of Tobacco Use: None Does any household member use tobacco: No Alcohol Use: None Do you use any recreational Drugs:: No Lives With: Alone Lives Where: Home Travel Risk Coronavirus risk:travel/contact w/high risk person: No Has patient experienced Coronavirus symptoms: No Infectious screening In the last 2 months have you had wt loss of >10#?: NO Have you had fever, night sweats or hemotysis?: No Have you traveled outside the country in the last 6 months?: No Isolation: Standard ROS Review of Systems Constitutional: Weakness and Other (PERIPHERAL EDEMA,LOW GI BLEED) Eyes: No Symptoms Reported ENTM: No Symptoms Reported Respiratoy: No Symptoms Reported Cardiovascular: No Symptoms Reported Gastrointestinal/Abdominal: No Symptoms Reported Genitourinary: No Symptoms Reported Neurological: No Symptoms Reported Musculoskeletal: No Symptoms Reported Integumentary: No Symptoms Reported Hematologic/Lymphatic: Anemia Endocrine: No Symptoms Reported Psychiatric: No Symptoms Reported PE Vital Signs Vitals: Temperature 98.0 F Pulse Rate 69 Respiratory Rate 22 Blood Pressure [Right Arm] 130/61 Blood Pressure 119/56 O2 Sat by Pulse Oximetry 98 General Limitations: Physical Limitation Head Head Exam: Normal Inspection and Atraumatic Eyes Eye exam: PERRL and EOMI ENT ENT Exam: Normal Exam and Normal Oropharynx External Ear Exam: Normal External Inspection TM/Canal Exam: Bilateral: Normal Nose Exam: Normal Nose Exam Mouth Exam: Normal Inspection Throat Exam: Normal Inspection Chest Chest Inspection: Normal Inspection and Symmetric Chest Wall Rise Respiratory Respiratory Exam: Normal Lung Sounds Bilat Cardiovascular Cardiovascular Exam: Irregular Rhythm Abdominal Exam Abdominal Exam: Normal Inspection, Normal Bowel Sounds and Soft Extremities Extremities Exam: Edema (+3 EDEMA) Back Back Exam: Normal Inspection and Full ROM Neurologic Neurological Exam: Alert and Oriented X3 Psychiatric Psychiatric Exam: Normal Affect and Normal Mood Skin Skin Exam: Warm and Dry MDM Differential Diagnosis Differential Diagnosis: ANEMIA,LOWER GI BLEED,HEMORRHOIDS,CHF AFIB COURSE Treatment Treatment: IENT REMAINED RELATIVELY STABLE DURING ER EVALUATION, HAD SLIGHLY ELEVATED BNP OF 85.6,H/H 7.5/23.2,. CHEST XRAY SHOWED MILD CARDIPOMEGALY WITH NO EVIDENCE OF ACTIVE DISEASE. SPOKE TO DR BELLO AND HE STATE HE WOULD ACCEPT THE PATIENT FOR EVALUATION FOR LOW GI BLLED,MILD CHF AND LETHARGY. DID NOT WANT TO TRANSFUSE NOW BUT WILL MONITOR H/H. PATIENT WAS MADE AWARE OF PLAN TO REFER TO OBSERVATION AND WAS AGREABLE TO OBSERVATION. ROR Labs Reviewed Laboratory Results Reviewed?: Yes Result Diagrams: 11/02/21 17:00 11/02/21 17:00 Laboratory: WBC 7.7 X10^3/uL (3.6-10.0) 11/02/21 17:00 RBC 2.88 X10^6/uL (3.5-5.4) L 11/02/21 17:00 Hgb 7.5 g/dL (12.0-16.0) L 11/02/21 17:00 Hct 23.2 % (36.0-47.0) L 11/02/21 17:00 MCV 80.6 fL (80.0-100.0) 11/02/21 17:00 MCH 26.1 pg (27.0-34.0) L 11/02/21 17:00 MCHC 32.3 g/dL (33.0-35.0) L 11/02/21 17:00 RDW 17.5 % (11.6-16.5) H 11/02/21 17:00 Plt Count 160 X10^3/uL (150.0-450.0) 11/02/21 17:00 MPV 7.8 fL (7.4-11.0) 11/02/21 17:00 Neut % (Auto) 69.9 % (42.0-75.0) 11/02/21 17:00 Lymph % (Auto) 17.8 % (21.0-51.0) L 11/02/21 17:00 [place] % (Auto) 7.6 % (0.0-13.0) 11/02/21 17:00 Eos % (Auto) 4.0 % (0.9-2.9) H 11/02/21 17:00 Baso % (Auto) 0.7 % (0.2-1.0) 11/02/21 17:00 Neut # (Auto) 5.4 x10^3/uL (2.2-4.8) H 11/02/21 17:00 Lymph # (Auto) 1.4 X10^3/uL (1.3-2.9) 11/02/21 17:00 [place] # (Auto) 0.6 x10^3/uL (0.3-0.8) 11/02/21 17:00 Eos # (Auto) 0.3 x10^3/uL (0.0-0.2) H 11/02/21 17:00 Baso # (Auto) 0.1 X10^3/uL (0.0-0.1) 11/02/21 17:00 Absolute Nucleated RBC 0.0 /100WBC 11/02/21 17:00 D-Dimer 0.58 ug/ml (0.0-0.57) H 11/02/21 17:00 Sample Site Rrad 11/02/21 15:50 ABG pH 7.480 (7.35-7.45) H 11/02/21 15:50 ABG pCO2 49.0 mmHg (35.0-45.0) H 11/02/21 15:50 ABG pO2 71.0 mmHg (80.0-100.0) L 11/02/21 15:50 ABG HCO3 36.5 mmol/L (22-26) H* 11/02/21 15:50 ABG O2 Saturation 95.0 % (90-100) 11/02/21 15:50 ABG Base Excess 11.4 mmol/L (-2.0-2.0) H 11/02/21 15:50 Curtis Test Pos 11/02/21 15:50 A-a Gradient 17.0 mmHg 11/02/21 15:50 FiO2 21.0 11/02/21 15:50 Blood Gas Comments Pt fariba well elj 11/02/21 15:50 Sodium 144 mmol/L (136-145) 11/02/21 17:00 Corrected Sodium 146 mmol/L (136-145) H 11/02/21 17:00 Potassium 4.1 mmol/L (3.5-5.1) 11/02/21 17:00 Chloride 104 mmol/L (98-107) 11/02/21 17:00 Carbon Dioxide 36.8 mmol/L (21-32) H 11/02/21 17:00 BUN 26 mg/dL (7-18) H 11/02/21 17:00 Creatinine 1.26 mg/dL (0.55-1.02) H 11/02/21 17:00 Est GFR (MDRD) Af Amer 52 (>60) L 11/02/21 17:00 Est GFR (MDRD) Non-Af 43 (>60) L 11/02/21 17:00 Glucose 167 mg/dL (65-99) H 11/02/21 17:00 Calcium 9.5 mg/dL (8.5-10.1) 11/02/21 17:00 Corrected Calcium 10.2 mg/dL (8.5-10.1) H 11/02/21 17:00 Total Bilirubin 0.30 mg/dL (0.2-1.0) 11/02/21 17:00 AST 12 Units/L (15-37) L 11/02/21 17:00 ALT 22 Units/L (12-78) 11/02/21 17:00 Alkaline Phosphatase 86 Units/L (46-116) 11/02/21 17:00 B-Natriuretic Peptide 85.6 pg/mL (0-79) H 11/02/21 17:00 Total Protein 6.1 g/dL (6.4-8.2) L 11/02/21 17:00 Albumin 3.1 g/dL (3.4-5.0) L 11/02/21 17:00 Globulin 3.0 g/dL (2.5-4.5) 11/02/21 17:00 Albumin/Globulin Ratio 1.0 Ratio (1.1-2.1) L 11/02/21 17:00 EKG Rhythm: Afib and PVCs Opioid Opioid Risk Tool Age (Masood box if 16-45): No History of Preadolescent Sexual Abuse: No Total: 0 Total Score Risk Category: Low Risk Copyright: Schuyler BELL predicting aberrant behaviors Discharge Plan Diagnosis Discharge Problem: Anemia, Chronic lower gastrointestinal bleeding, A-fib, Mild congestive heart failure Discharge Plan Patient Disposition: 09 ADMITTED INPATIENT Condition: Stable Prescriptions: No Action simvastatin 20 MG tablet 20 mg PO HS Label Comments: esomeprazole magnesium 40 MG capsule,delayed release(DR/EC) 40 mg PO DAILY Label Comments: pregabalin 150 mg Capsule 150 mg PO TID Label Comments: only takes twice a day tramadol 50 mg Tablet 50 mg PO BID Label Comments: Takes PRN Eliquis 5 mg Tablet 5 mg PO BID carvedilol [Coreg] 6.25 mg Tablet 6.25 mg PO BID furosemide [Lasix] 40 mg Tablet 40 mg PO QAM Qty: 44 0RF Rx Instructions: Take Lasix 40mg by mouth once daily on Thursday, , Thursday and Thursday Take Lasix 40mg by mouth twice a day on Thursday, Thursday and Thursday Entresto 24-26 mg Tablet 0.5 tab PO BID Health Concerns: Post Hospitalization: new medications and changes needed to prevent readmission or further decline. Pt educated and given instructions on all concerns. Plan of Treatment: Continue with present treatment and follow up plan. Pt is to keep follow up appointment as instructed and take medications as ordered. Orders to Discharge Patient Discharge Orders: Transfer (Routine); Ordered 11/02/21 Ordered By: Merlin La Follow ups/Referrals Follow ups/Referrals: ESTELA BELLO [Primary Care Provider] - 3 days Instructions Stand Alone Forms: Precautions for COVID19, [facility], Patient Portal, Social Distancing
--- NOTE | 2021-11-02 16:56 | RAD ---
PROCEDURE: Chest X-ray 1 View .HISTORY: Dyspnea.TECHNIQUE: AP portable done at 4:17 p.m..COMPARISON: 04/08/2021.TECHNICAL QUALITY: Satisfactory .FINDINGS:Unchanged mild cardiomegaly with pacemaker on the left.Mediastinum and hilar regions show no masses or lymphadenopathy .Normal central vascularity .No pulmonary consolidation, masses, pleural fluid, or pneumothorax .No acute bony abnormality .IMPRESSION:Unchanged mild cardiomegaly with no other evidence of active disease.Electronically signed by: Baltazar Kurtz (Nov 02, 2021 16:54:13)
[2021-11-02 17:17] LABS: BASOPHILS # (AUTO) 0.1 X10^3/uL (0.0-0.1); BASOPHILS % (AUTO) 0.7 % (0.2-1.0); EOSINOPHILS # (AUTO) 0.3 x10^3/uL (0.0-0.2); HEMATOCRIT 23.2 % (36.0-47.0); HEMOGLOBIN 7.5 g/dL (12.0-16.0); LYMPHOCYTES # (AUTO) 1.4 X10^3/uL (1.3-2.9); LYMPHOCYTES % (AUTO) 17.8 % (21.0-51.0); MEAN CORPUSCULAR HEMOGLOBIN 26.1 pg (27.0-34.0); MEAN CORPUSCULAR HGB CONC 32.3 g/dL (33.0-35.0); MEAN CORPUSCULAR VOLUME 80.6 fL (80.0-100.0); MEAN PLATELET VOLUME 7.8 fL (7.4-11.0); MONOCYTES # (AUTO) 0.6 x10^3/uL (0.3-0.8); MONOCYTES % (AUTO) 7.6 % (0.0-13.0); NEUTROPHILS # (AUTO) 5.4 x10^3/uL (2.2-4.8); NEUTROPHILS % (AUTO) 69.9 % (42.0-75.0); RED BLOOD COUNT 2.88 X10^6/uL (3.5-5.4); RED CELL DISTRIBUTION WIDTH 17.5 % (11.6-16.5); WHITE BLOOD COUNT 7.7 X10^3/uL (3.6-10.0)
[2021-11-02 17:29] LABS: ALBUMIN 3.1 g/dL (3.4-5.0); CALCIUM 9.5 mg/dL (8.5-10.1); CARBON DIOXIDE 36.8 mmol/L (21-32); COR CA(FOR HYPOALB) 10.2 mg/dL (8.5-10.1); CREATININE 1.26 mg/dL (0.55-1.02); TOTAL PROTEIN 6.1 g/dL (6.4-8.2)
[2021-11-02 22:03] LABS: BASOPHILS # (AUTO) 0.1 X10^3/uL (0.0-0.1); BASOPHILS % (AUTO) 0.8 % (0.2-1.0); EOSINOPHILS # (AUTO) 0.4 x10^3/uL (0.0-0.2); EOSINOPHILS % (AUTO) 5.4 % (0.9-2.9); HEMATOCRIT 23.9 % (36.0-47.0); HEMOGLOBIN 7.7 g/dL (12.0-16.0); LYMPHOCYTES # (AUTO) 1.6 X10^3/uL (1.3-2.9); LYMPHOCYTES % (AUTO) 20.2 % (21.0-51.0); MEAN CORPUSCULAR HGB CONC 32.4 g/dL (33.0-35.0); MEAN CORPUSCULAR VOLUME 80.2 fL (80.0-100.0); MONOCYTES # (AUTO) 0.6 x10^3/uL (0.3-0.8); MONOCYTES % (AUTO) 7.2 % (0.0-13.0); NEUTROPHILS # (AUTO) 5.2 x10^3/uL (2.2-4.8); NEUTROPHILS % (AUTO) 66.4 % (42.0-75.0); RED BLOOD COUNT 2.97 X10^6/uL (3.5-5.4); RED CELL DISTRIBUTION WIDTH 17.1 % (11.6-16.5); WHITE BLOOD COUNT 7.8 X10^3/uL (3.6-10.0)
[2021-11-02 22:13] LABS: ALBUMIN 3.2 g/dL (3.4-5.0); CALCIUM 9.4 mg/dL (8.5-10.1); CARBON DIOXIDE 39.2 mmol/L (21-32); CREATININE 1.27 mg/dL (0.55-1.02); TOTAL PROTEIN 6.2 g/dL (6.4-8.2)
[2021-11-02] MEDS ORDERED: NS 1,000 ML IV 1,000 ML ONE (22:19)
[2021-11-02] MEDS: NS 1,000 ML IV 1,000 ML IV SCH (22:23)
[2021-11-02] MEDS: LYRICA CAP 150 mg PO SCH (23:40)
[2021-11-03] MEDS: LYRICA CAP 150 mg PO SCH ×3 (05:42→21:39)
[2021-11-03 06:41] LABS: BASOPHILS # (AUTO) 0.1 X10^3/uL (0.0-0.1); BASOPHILS % (AUTO) 0.9 % (0.2-1.0); EOSINOPHILS # (AUTO) 0.4 x10^3/uL (0.0-0.2); EOSINOPHILS % (AUTO) 5.5 % (0.9-2.9); HEMATOCRIT 22.8 % (36.0-47.0); HEMOGLOBIN 7.4 g/dL (12.0-16.0); LYMPHOCYTES # (AUTO) 1.5 X10^3/uL (1.3-2.9); LYMPHOCYTES % (AUTO) 21.8 % (21.0-51.0); MEAN CORPUSCULAR HEMOGLOBIN 25.9 pg (27.0-34.0); MEAN CORPUSCULAR HGB CONC 32.3 g/dL (33.0-35.0); MEAN CORPUSCULAR VOLUME 80.2 fL (80.0-100.0); MEAN PLATELET VOLUME 7.9 fL (7.4-11.0); MONOCYTES # (AUTO) 0.6 x10^3/uL (0.3-0.8); MONOCYTES % (AUTO) 8.6 % (0.0-13.0); NEUTROPHILS # (AUTO) 4.4 x10^3/uL (2.2-4.8); NEUTROPHILS % (AUTO) 63.2 % (42.0-75.0); RED BLOOD COUNT 2.84 X10^6/uL (3.5-5.4); RED CELL DISTRIBUTION WIDTH 17.3 % (11.6-16.5)
[2021-11-03 06:56] LABS: ALANINE AMINOTRANSFERASE 15 Units/L (12-78); ALBUMIN 2.8 g/dL (3.4-5.0); ALKALINE PHOSPHATASE 79 Units/L (46-116); ASPARTATE AMINO TRANSFERASE 13 Units/L (15-37); BLOOD UREA NITROGEN 24 mg/dL (7-18); CALCIUM 9.1 mg/dL (8.5-10.1); CARBON DIOXIDE 36.4 mmol/L (21-32); CHLORIDE 106 mmol/L (98-107); COR CA(FOR HYPOALB) 10.1 mg/dL (8.5-10.1); COR NA(FOR HYPERGLY) 145 mmol/L (136-145); CREATININE 1.01 mg/dL (0.55-1.02); SODIUM 144 mmol/L (136-145); TOTAL PROTEIN 5.6 g/dL (6.4-8.2); eGFR NON BLACK RACES 56 (>60)
[2021-11-03] MEDS: ULTRAM PO SCH ×2 (09:09→20:27)
[2021-11-03] MEDS: ENTRESTO 24/26 MG TAB PO SCH ×2 (09:09→20:26)
[2021-11-03] MEDS: COREG TAB 6.25 MG PO SCH ×2 (09:11→20:28)
[2021-11-03] MEDS: NexIUM PO SCH (09:11)
[2021-11-03] MEDS: NS 1,000 ML IV 1,000 ML IV SCH (12:17)
[2021-11-03 12:22] LABS: CREATINE KINASE 17 Units/L (26-192)
--- NOTE | 2021-11-03 12:48 | RAD ---
HISTORYSOB, CHFSTUDYCHEST, 1 VIEWCOMPARISONJuly 2021TECHNIQUEPortable chest radiographFINDINGSThere is evidence of cardiomegaly and central vascular congestion. No organized consolidation or pleural fluid collections. No free air or pneumothorax. A pacing device is observed along the left chest wall. No acute osseous abnormalities of the chest.IMPRESSIONCardiomegaly with central vascular congestion. No findings of overt pulmonary edema or pleural fluid collectionsElectronically signed by: ANNAMARIE CABRERA (Nov 03, 2021 12:46:43)
[2021-11-03 12:59] LABS: IRON 17 ug/dL (50-175)
[2021-11-03] MEDS ORDERED: BENADRYL INJ 50 MG VIAL IVP PRN (14:11)
[2021-11-03] MEDS ORDERED: NS 500 ML IV 500 ML IV ONE (14:11)
--- NOTE | 2021-11-03 14:16 | DR.H&P ---
H&P - History & Physical for Day of: H&P Date: 11/02/21 - Chief Complaint Chief Complaint: PASSING BLOOD, VERY SHORT OF BREATH WITH LOWER LEG SWELLING - History of Present Illness History of Present Illness: PT IS 81 WF ER ADMISSION WITH CO BRIGHT RED BLOOD PER RECTUM, PROGRESSIVELY WORSENING GENERALIZED WEAKNESS AND GENERALIZED EDEMA INTO BILATERAL LOWER EXTREMITIES, FACE, AND ARMS. PT HAS PMH OF CHF, COPD, CAD, AFIB, OA,DM AND ANEMIA. PT WAS ADMITTED FOR TREATMENT OF ACUTE ILLNESS. - Past Medical History Past Medical History: Anemia, Arthritis, CHF, Coronary Artery Disease, Diabetes, Hypertension, Kidney Stones Additional Medical History: AFIB - Past Surgical History Surgical History: Angioplasty/Stents, Appendectomy, Cholecystectomy, Hysterectomy, Lithotripsy - Family History Family Medical History: Diabetes Mellitus, Cancer, [place], Heart Failure, Sudden Cardiac , Hypertension - Social History Does patient currently use any type of tobacco product: No Have you used tobacco products in the last 12 months: No Type of Tobacco Use: None Does any household member use tobacco: No Alcohol Use: None Drug Use: None - Medications Home Medications: amoxicillin Allergy (Verified 05/22/17 11:41) CONTINUE taking the following medications sacubitril 24 mg-valsartan 26 mg tablet (Entresto) 0.5 tab PO BID 11/02/21 [History] - Review of Systems Constitutional: Weakness, Malaise Eyes: No Symptoms Reported ENT: No Symptoms Reported Respiratory: Shortness of Breath, SOB with Excertion Cardiovascular: Palpitations, Edema Gastrointestinal: Nausea, Hematochezia Genitourinary: Incontinence Musculoskeletal: Back Pain Skin: No Symptoms Reported Neurological: Weakness - Physical Exam Vital Signs: Temperature 97.6 F Pulse Rate [Brachial] 71 Pulse Rate 74 Respiratory Rate 18 Blood Pressure [Left Arm] 123/56 Blood Pressure [Right Arm] 130/61 Blood Pressure 136/69 O2 Sat by Pulse Oximetry 96 Oriented: Normal Eyes: Normal Ear: Normal Nose: Normal Throat: Normal Respiratory: Diminished Throughout Cardiovascular: Irregular, Edema (+ 4 BILATERAL LOWER EXTREMITY EDEMA) : Normal, Hematuria Palpation: Normal Tenderness: Normal Skin: Decreased Turgur Musculoskeletal: Right, Left, Leg, Back:Lumbar Psychiatric: Normal Mood Description: Calm Speech Pattern: Clear, Appropriate - Assessment/Plan (1) Lower GI bleed Status: Acute Plan: ADMIT, OCCULT STOOL, TYPE AND SCREEN. SERIAL H&H, CARDIAC MONITORING, BP CONTROL. OBTAIN ANEMIA PANEL, CXR ON ADMISSION. CE AND EKG. IV LASIX, SUPPLEMENTAL O2, STRICT I&O (2) CHF (congestive heart failure) Status: Acute (3) HTN (hypertension) Status: Chronic (4) Diabetes Status: Chronic (5) Anemia Status: Acute - Allergies Allergies/Adverse Reactions: Allergies Allergy/AdvReac Type Severity Reaction Status Date / Time amoxicillin Allergy Verified 05/22/17 11:41
--- NOTE | 2021-11-03 14:21 | PCM.PROG ---
Progress Note - Progress Note for Day of Date of Exam: 11/03/21 - Subjective Subjective: PT IS 81 WF, ER ADMISSION WITH LOWER GI BLEED AND SYMPTOMATIC ANEMIA. PT HAS HX OF CHF AND HAS +4 BILATERAL LOWER EXTREMITY EDEMA. PT HGB 7.4 BUN 24 CREAT 1.01. THIS AM. PLAN TO PLACE [facility] CATH AND START IV LASIX 40MG IV TID, TRANSFUSE 1 UNIT PRBC AND REASSESS H&H POST INFUSION. PT HAS EXTERNAL HEMORRHOIDS, SUSPECTED SOURCE OF BRIGHT RED BLEEDING. WILL CONTINUE TO MONITOR, PT DENIES BM SINCE ADMISSION. FE REPLACEMENT THERAPY, RESUME HOME MEDICATIONS - Past Medical Family Social History Past Med/Fam/Surg Hx: No changes since H&P Allergies: Allergies amoxicillin Allergy (Verified 05/22/17 11:41) - Review of Systems ROS: No change since H&P - Vital Signs and I&O's Vital Signs: Temperature 97.6 F Pulse Rate [Brachial] 71 Pulse Rate 74 Respiratory Rate 18 Blood Pressure [Left Arm] 123/56 Blood Pressure [Right Arm] 130/61 Blood Pressure 136/69 O2 Sat by Pulse Oximetry 96 Intake and Output: Intake & Output 11/01/21 11/02/21 11/03/21 11/04/21 11:59 11:59 11:59 11:59 Intake Total 654 / 654 Balance 654 / 654 - Physical Exam Oriented: Normal Eyes: Normal Ear: Normal Nose: Normal Throat: Normal Cardiovascular: Irregular, Edema (+ 4 BILATERAL LOWER EXTREMITY EDEMA) : Normal, Hematuria Tenderness: Normal Skin: Decreased Turgur Musculoskeletal: Right, Left, Leg, Back:Lumbar Psychiatric: Normal Mood Description: Calm Speech Pattern: Clear, Appropriate - Laboratory and Diagnostics Result Diagrams: 11/03/21 05:53 11/03/21 05:53 Labs: Laboratory WBC 7.0 X10^3/uL (3.6-10.0) 11/03/21 05:53 RBC 2.84 X10^6/uL (3.5-5.4) L 11/03/21 05:53 Hgb 7.4 g/dL (12.0-16.0) L 11/03/21 05:53 Hct 22.8 % (36.0-47.0) L 11/03/21 05:53 MCV 80.2 fL (80.0-100.0) 11/03/21 05:53 MCH 25.9 pg (27.0-34.0) L 11/03/21 05:53 MCHC 32.3 g/dL (33.0-35.0) L 11/03/21 05:53 RDW 17.3 % (11.6-16.5) H 11/03/21 05:53 Plt Count 142 X10^3/uL (150.0-450.0) L 11/03/21 05:53 MPV 7.9 fL (7.4-11.0) 11/03/21 05:53 Neut % (Auto) 63.2 % (42.0-75.0) 11/03/21 05:53 Lymph % (Auto) 21.8 % (21.0-51.0) 11/03/21 05:53 [place] % (Auto) 8.6 % (0.0-13.0) 11/03/21 05:53 Eos % (Auto) 5.5 % (0.9-2.9) H 11/03/21 05:53 Baso % (Auto) 0.9 % (0.2-1.0) 11/03/21 05:53 Neut # (Auto) 4.4 x10^3/uL (2.2-4.8) 11/03/21 05:53 Lymph # (Auto) 1.5 X10^3/uL (1.3-2.9) 11/03/21 05:53 [place] # (Auto) 0.6 x10^3/uL (0.3-0.8) 11/03/21 05:53 Eos # (Auto) 0.4 x10^3/uL (0.0-0.2) H 11/03/21 05:53 Baso # (Auto) 0.1 X10^3/uL (0.0-0.1) 11/03/21 05:53 Absolute Nucleated RBC 0.0 /100WBC 11/03/21 05:53 D-Dimer 0.58 ug/ml (0.0-0.57) H 11/02/21 17:00 Sample Site Rrad 11/02/21 15:50 ABG pH 7.480 (7.35-7.45) H 11/02/21 15:50 ABG pCO2 49.0 mmHg (35.0-45.0) H 11/02/21 15:50 ABG pO2 71.0 mmHg (80.0-100.0) L 11/02/21 15:50 ABG HCO3 36.5 mmol/L (22-26) H* 11/02/21 15:50 ABG O2 Saturation 95.0 % (90-100) 11/02/21 15:50 ABG Base Excess 11.4 mmol/L (-2.0-2.0) H 11/02/21 15:50 Curtis Test Pos 11/02/21 15:50 A-a Gradient 17.0 mmHg 11/02/21 15:50 FiO2 21.0 11/02/21 15:50 Blood Gas Comments Pt fariba well elj 11/02/21 15:50 Sodium 144 mmol/L (136-145) 11/03/21 05:53 Corrected Sodium 145 mmol/L (136-145) 11/03/21 05:53 Potassium 3.7 mmol/L (3.5-5.1) 11/03/21 05:53 Chloride 106 mmol/L (98-107) 11/03/21 05:53 Carbon Dioxide 36.4 mmol/L (21-32) H 11/03/21 05:53 BUN 24 mg/dL (7-18) H 11/03/21 05:53 Creatinine 1.01 mg/dL (0.55-1.02) 11/03/21 05:53 Est GFR (MDRD) Af Amer > 60 (>60) 11/03/21 05:53 Est GFR (MDRD) Non-Af 56 (>60) L 11/03/21 05:53 Glucose 153 mg/dL (65-99) H 11/03/21 05:53 Calcium 9.1 mg/dL (8.5-10.1) 11/03/21 05:53 Corrected Calcium 10.1 mg/dL (8.5-10.1) 11/03/21 05:53 Iron 17 ug/dL (50-175) L 11/03/21 11:57 Transferrin 279 mg/dL (202-364) 11/03/21 11:57 Ferritin 16 ng/mL (8-252) 11/03/21 11:57 Total Bilirubin 0.20 mg/dL (0.2-1.0) 11/03/21 05:53 AST 13 Units/L (15-37) L 11/03/21 05:53 ALT 15 Units/L (12-78) 11/03/21 05:53 Alkaline Phosphatase 79 Units/L (46-116) 11/03/21 05:53 Creatine Kinase 17 Units/L (26-192) L 11/03/21 11:57 Troponin I High Sens 12.4 ng/L (4.0-60.0) 11/03/21 11:57 B-Natriuretic Peptide 85.6 pg/mL (0-79) H 11/02/21 17:00 Total Protein 5.6 g/dL (6.4-8.2) L 11/03/21 05:53 Albumin 2.8 g/dL (3.4-5.0) L 11/03/21 05:53 Globulin 2.8 g/dL (2.5-4.5) 11/03/21 05:53 Albumin/Globulin Ratio 1.0 Ratio (1.1-2.1) L 11/03/21 05:53 Vitamin B12 886 pg/mL (193-986) 11/03/21 11:57 Folate > 20.0 ng/mL (>8.6) 11/03/21 11:57 SARS-CoV-2 (PCR) Negative (NEGATIVE) 11/02/21 20:45 Influenza Type A (PCR) Negative (NEGATIVE) 11/02/21 20:45 Influenza Type B (PCR) Negative (NEGATIVE) 11/02/21 20:45 RSV (PCR) Negative (NEGATIVE) 11/02/21 20:45 - Plan (1) Lower GI bleed Status: Acute Plan: OCCULT STOOL, TYPE AND SCREEN ON ADMISSION WILL TRANSFUSE 1 UNIT PRBC SLOWLY PER PROTOCOL, PLACE [facility] CATH FOR STRICT OUTPUT. SERIAL H&H, CARDIAC MONITORING, BP CONTROL. OBTAIN ANEMIA PANEL, CXR ON ADMISSION. CE AND EKG. IV LASIX, SUPPLEMENTAL O2, STRICT I&O (2) CHF (congestive heart failure) Status: Acute (3) HTN (hypertension) Status: Chronic (4) Diabetes Status: Chronic (5) Anemia Status: Acute
[2021-11-03] MEDS ORDERED: NS 100 ML IV 100 ML with VENOFER 400 MG IV ONE ×2 (15:00)
[2021-11-03] MEDS: K-DUR TAB 20 MEQ PO SCH ×2 (15:23→20:28)
[2021-11-03] MEDS: LASIX IVP SCH (15:51)
[2021-11-03 16:53] LABS: BILIRUBIN,URINE NEGATIVE (NEGATIVE); BLOOD/HEMOGLOBIN,URINE 2+ (NEGATIVE); GLUCOSE, URINE NEGATIVE (NEGATIVE); KETONES,URINE NEGATIVE (NEGATIVE); LEUKOCYTE ESTERASE ,URINE 2+ (NEGATIVE); NITRITES,URINE NEGATIVE (NEGATIVE); PROTEIN,URINE 2+ (NEGATIVE); UROBILINOGEN,URINE NORMAL (NORMAL)
[2021-11-03 16:58] LABS: APPEARANCE,URINE CLOUDY (CLEAR); COLOR,URINE PALE YELLOW (YELLOW)
[2021-11-03 17:20] LABS: BACTERIA,URINE 2+ /HPF (NEGATIVE); RBC,URINE 20-30 /HPF (0-3); SQUAMOUS EPITHELIAL CELL,UR RARE /HPF (NEGATIVE)
[2021-11-03] MEDS ORDERED: ROCEPHIN 1 GRAM IV PREMIX 1 G/50 ML IV.SOLN. IV SCH (19:00)
[2021-11-03] MEDS ORDERED: ROCEPHIN VIAL 1 GRAM ONE (19:21)
[2021-11-03] MEDS ORDERED: NS 100 ML IV 100 ML ONE ×2 (19:28→20:05)
[2021-11-03] MEDS: MILK OF MAGNESIA PO SCH (20:26)
[2021-11-03] MEDS: COLACE CAP 100 MG PO SCH (20:28)
[2021-11-03] MEDS: TYLENOL 325 MG TAB PO PRN (20:29)
[2021-11-03] MEDS: ZOCOR TAB 20 MG PO SCH (20:30)
[2021-11-03] MEDS: SNACK - Diabetic Appropriate PO SCH (20:40)
[2021-11-04] MEDS: LASIX IVP SCH ×4 (02:10→23:30)
[2021-11-04 02:52] LABS: BASOPHILS # (AUTO) 0.1 X10^3/uL (0.0-0.1); BASOPHILS % (AUTO) 0.9 % (0.2-1.0); EOSINOPHILS # (AUTO) 0.4 x10^3/uL (0.0-0.2); EOSINOPHILS % (AUTO) 5.3 % (0.9-2.9); HEMOGLOBIN 8.2 g/dL (12.0-16.0); LYMPHOCYTES # (AUTO) 1.3 X10^3/uL (1.3-2.9); LYMPHOCYTES % (AUTO) 17.3 % (21.0-51.0); MEAN CORPUSCULAR HGB CONC 32.6 g/dL (33.0-35.0); MEAN CORPUSCULAR VOLUME 79.9 fL (80.0-100.0); MEAN PLATELET VOLUME 7.8 fL (7.4-11.0); MONOCYTES # (AUTO) 0.6 x10^3/uL (0.3-0.8); MONOCYTES % (AUTO) 7.8 % (0.0-13.0); NEUTROPHILS # (AUTO) 5.3 x10^3/uL (2.2-4.8); NEUTROPHILS % (AUTO) 68.7 % (42.0-75.0); RED BLOOD COUNT 3.13 X10^6/uL (3.5-5.4); RED CELL DISTRIBUTION WIDTH 16.9 % (11.6-16.5); WHITE BLOOD COUNT 7.7 X10^3/uL (3.6-10.0)
[2021-11-04] MEDS: NS 1,000 ML IV 1,000 ML IV SCH ×2 (02:52→13:50)
[2021-11-04 03:01] LABS: ALANINE AMINOTRANSFERASE 12 Units/L (12-78); ALBUMIN 2.8 g/dL (3.4-5.0); ALKALINE PHOSPHATASE 84 Units/L (46-116); ASPARTATE AMINO TRANSFERASE 12 Units/L (15-37); BLOOD UREA NITROGEN 18 mg/dL (7-18); CARBON DIOXIDE 37.8 mmol/L (21-32); CHLORIDE 103 mmol/L (98-107); COR NA(FOR HYPERGLY) 142 mmol/L (136-145); CREATININE 1.02 mg/dL (0.55-1.02); SODIUM 141 mmol/L (136-145); TOTAL PROTEIN 5.8 g/dL (6.4-8.2); eGFR NON BLACK RACES 55 (>60)
[2021-11-04] MEDS: LYRICA CAP 150 mg PO SCH ×3 (05:58→21:32)
[2021-11-04] MEDS: COREG TAB 6.25 MG PO SCH ×2 (08:01→21:26)
[2021-11-04] MEDS: NexIUM PO SCH (08:02)
[2021-11-04] MEDS: K-DUR TAB 20 MEQ PO SCH ×2 (08:02→21:28)
[2021-11-04] MEDS: ENTRESTO 24/26 MG TAB PO SCH ×2 (08:02→21:28)
[2021-11-04] MEDS: ULTRAM PO SCH ×2 (08:03→21:30)
[2021-11-04] MEDS: ROCEPHIN VIAL 1 GRAM 1 G in NS 100 ML IV 100 ML IV SCH (08:04)
--- NOTE | 2021-11-04 10:56 | RAD ---
HISTORYCHF SOBSTUDYPortable AP [id number] cardiomegaly with pacemaker and mild pulmonary vascular congestion. There is no evidence for pneumonia, pleural effusion or krysten pulmonary edema.IMPRESSIONNo change.Electronically signed by: DEMARCUS WHELAN (Nov 04, 2021 10:55:12)
--- NOTE | 2021-11-04 17:49 | CT ---
HISTORYACUTE AMSSTUDYBRAIN W/O CONCOMPARISONNone available.TECHNIQUEAxial non-contrast images of the head were obtained with coronal and sagittal reformats provided.Radiation dose: 1222.60 mGy-cm total DLPFINDINGSNo abnormal areas of acute attenuation in the brain parenchyma.Rebollar-white differentiation remains intact.No intracranial, extra-axial, fluid collection.No hemorrhage.Periventricular chronic microvascular disease.No mass, mass effect or midline shift.Age related brain parenchymal global atrophy.No ventriculomegaly.No acute fracture.Sinuses are well aerated.Mastoid air cells are well aerated.Globes and intra-orbital contents are unremarkable.IMPRESSIONNo acute intracranial abnormality identified.Electronically signed by: Les Verduzco (Nov 04, 2021 17:48:19)
[2021-11-04] MEDS: SNACK - Diabetic Appropriate PO SCH (21:24)
[2021-11-04] MEDS: COLACE CAP 100 MG PO SCH (21:25)
[2021-11-04] MEDS: ELIQUIS PO SCH ×2 (21:27→23:30)
[2021-11-04] MEDS: MILK OF MAGNESIA PO SCH (21:29)
[2021-11-04] MEDS: ZOCOR TAB 20 MG PO SCH (21:32)
[2021-11-05] MEDS: NS 1,000 ML IV 1,000 ML IV SCH ×3 (05:21→15:03)
[2021-11-05] MEDS: LYRICA CAP 150 mg PO SCH (05:22)
[2021-11-05 05:34] LABS: CARBON DIOXIDE 37.4 mmol/L (21-32)
[2021-11-05 05:35] LABS: BASOPHILS # (AUTO) 0.1 X10^3/uL (0.0-0.1); BASOPHILS % (AUTO) 0.7 % (0.2-1.0); EOSINOPHILS # (AUTO) 0.4 x10^3/uL (0.0-0.2); EOSINOPHILS % (AUTO) 3.6 % (0.9-2.9); HEMATOCRIT 25.8 % (36.0-47.0); HEMOGLOBIN 8.3 g/dL (12.0-16.0); LYMPHOCYTES # (AUTO) 1.6 X10^3/uL (1.3-2.9); LYMPHOCYTES % (AUTO) 16.4 % (21.0-51.0); MEAN CORPUSCULAR HEMOGLOBIN 26.4 pg (27.0-34.0); MEAN CORPUSCULAR HGB CONC 32.4 g/dL (33.0-35.0); MEAN CORPUSCULAR VOLUME 81.5 fL (80.0-100.0); MEAN PLATELET VOLUME 7.8 fL (7.4-11.0); MONOCYTES # (AUTO) 0.9 x10^3/uL (0.3-0.8); MONOCYTES % (AUTO) 8.7 % (0.0-13.0); NEUTROPHILS % (AUTO) 70.6 % (42.0-75.0); RED BLOOD COUNT 3.16 X10^6/uL (3.5-5.4); WHITE BLOOD COUNT 9.9 X10^3/uL (3.6-10.0)
[2021-11-05 05:57] LABS: ALBUMIN 2.9 g/dL (3.4-5.0); CALCIUM 9.3 mg/dL (8.5-10.1); COR CA(FOR HYPOALB) 10.2 mg/dL (8.5-10.1); CREATININE 1.16 mg/dL (0.55-1.02)
[2021-11-05] MEDS: NovoLIN R (or HumuLIN R) SUBCUT PRN ×2 (07:06→21:30)
[2021-11-05] MEDS: LASIX IVP SCH ×3 (08:40→23:06)
[2021-11-05] MEDS: COREG TAB 6.25 MG PO SCH ×2 (08:41→21:31)
[2021-11-05] MEDS: ENTRESTO 24/26 MG TAB PO SCH ×2 (08:41→21:32)
[2021-11-05] MEDS: ELIQUIS PO SCH ×2 (08:41→21:31)
[2021-11-05] MEDS: K-DUR TAB 20 MEQ PO SCH ×2 (08:41→21:32)
[2021-11-05] MEDS: ROCEPHIN VIAL 1 GRAM 1 G in NS 100 ML IV 100 ML IV SCH (08:42)
[2021-11-05] MEDS: NexIUM PO SCH (08:42)
[2021-11-05] MEDS: ULTRAM PO SCH (08:42)
--- NOTE | 2021-11-05 11:50 | RAD ---
HISTORYCHFSTUDYCHEST x-ray, 1 VIEWCOMPARISONX-ray 11/04/2021FINDINGSPacemaker leads are seen in the region of the right atrium of the heart and in the right ventricle. The ventricular lead has a more cephalad location than seen on prior study. Correlation with function is recommended. However, this location is seen on the 11/03/2021 exam.Cardiomegaly is seen with probable CHF, unchanged. No pneumothorax or pleural effusion is seen.IMPRESSIONProbable CHF.Possible mobile location of the ventricular lead in the right ventricle between the past 2 days. Correlation with function is recommended.Electronically signed by: Franklin Oneal (Nov 05, 2021 11:48:47)
[2021-11-05] MEDS ORDERED: ALBUMIN HUMAN 25%- 100 ML 100 ML IV ONE (14:08)
[2021-11-05] MEDS ORDERED: ULTRAM PO PRN (14:09)
[2021-11-05] MEDS: SNACK - Diabetic Appropriate PO SCH (20:31)
[2021-11-05] MEDS: COLACE CAP 100 MG PO SCH (21:31)
[2021-11-05] MEDS: ZOCOR TAB 20 MG PO SCH (21:33)
[2021-11-05] MEDS: MILK OF MAGNESIA PO SCH (21:33)
[2021-11-06] MEDS: NS 1,000 ML IV 1,000 ML IV SCH ×3 (05:17→16:29)
[2021-11-06 05:59] LABS: BASOPHILS % (AUTO) 0.5 % (0.2-1.0); EOSINOPHILS # (AUTO) 0.3 x10^3/uL (0.0-0.2); EOSINOPHILS % (AUTO) 3.2 % (0.9-2.9); HEMATOCRIT 24.6 % (36.0-47.0); HEMOGLOBIN 7.9 g/dL (12.0-16.0); LYMPHOCYTES # (AUTO) 1.4 X10^3/uL (1.3-2.9); LYMPHOCYTES % (AUTO) 15.2 % (21.0-51.0); MEAN CORPUSCULAR HEMOGLOBIN 25.8 pg (27.0-34.0); MEAN CORPUSCULAR HGB CONC 32.2 g/dL (33.0-35.0); MEAN CORPUSCULAR VOLUME 80.1 fL (80.0-100.0); MEAN PLATELET VOLUME 7.8 fL (7.4-11.0); MONOCYTES # (AUTO) 0.7 x10^3/uL (0.3-0.8); MONOCYTES % (AUTO) 8.3 % (0.0-13.0); NEUTROPHILS # (AUTO) 6.5 x10^3/uL (2.2-4.8); NEUTROPHILS % (AUTO) 72.8 % (42.0-75.0); RED BLOOD COUNT 3.07 X10^6/uL (3.5-5.4); RED CELL DISTRIBUTION WIDTH 16.7 % (11.6-16.5)
[2021-11-06 06:21] LABS: ALANINE AMINOTRANSFERASE 16 Units/L (12-78); ALBUMIN 3.1 g/dL (3.4-5.0); ALKALINE PHOSPHATASE 77 Units/L (46-116); ASPARTATE AMINO TRANSFERASE 11 Units/L (15-37); BLOOD UREA NITROGEN 24 mg/dL (7-18); CALCIUM 9.7 mg/dL (8.5-10.1); CARBON DIOXIDE 36.1 mmol/L (21-32); CHLORIDE 102 mmol/L (98-107); COR CA(FOR HYPOALB) 10.4 mg/dL (8.5-10.1); COR NA(FOR HYPERGLY) 143 mmol/L (136-145); CREATININE 1.03 mg/dL (0.55-1.02); SODIUM 142 mmol/L (136-145); TOTAL PROTEIN 6.1 g/dL (6.4-8.2); eGFR NON BLACK RACES 54 (>60)
[2021-11-06] MEDS: LASIX IVP SCH ×3 (08:28→22:29)
[2021-11-06] MEDS: ENTRESTO 24/26 MG TAB PO SCH ×2 (08:33→20:57)
[2021-11-06] MEDS: ELIQUIS PO SCH ×2 (08:33→20:57)
[2021-11-06] MEDS: K-DUR TAB 20 MEQ PO SCH ×2 (08:34→20:55)
[2021-11-06] MEDS: COREG TAB 6.25 MG PO SCH ×2 (08:34→20:57)
[2021-11-06] MEDS: NexIUM PO SCH (08:35)
[2021-11-06] MEDS: ROCEPHIN VIAL 1 GRAM 1 G in NS 100 ML IV 100 ML IV SCH (08:35)
--- NOTE | 2021-11-06 09:06 | RAD ---
HISTORYCongestive heart failureSTUDYChest AP [id number]/19/2022FINDINGSTher e is a pacemaker present on the left obscuring a portion of the lateral left lung apex. Heart is enlarged. No congestive heart failure is noted. No acute alveolar infiltrates or pleural effusions are identified. Bony thorax is unremarkable.IMPRESSIONCardiomegaly without congestive heart failureNo definite infiltratesElectronically signed by: CHANTELLE STONE (Nov 06, 2021 09:04:15)
--- NOTE | 2021-11-06 13:08 | VAS ---
Ultrasound bilateral lower extremity venous DopplerIndication: SwellingTECHNIQUEDynamic grayscale, color spectral Doppler imaging through the bilateral lower extremity veins compression techniques and spectral analysisFINDINGSThe bilateral common femoral veins, superficial femoral veins throughout their lengths and popliteal veins are patent and compressible with normal respiratory phasicity. Posterior tibial veins are patentIMPRESSIONNo right or left lower extremity deep vein thrombosis.Electronically signed by: TONE FOX (Nov 06, 2021 13:07:09)
[2021-11-06] MEDS: INVanz INJ 1 GRAM VIAL 1 G in NS 100 ML IV 100 ML IV SCH (17:48)
[2021-11-06] MEDS: MILK OF MAGNESIA PO SCH ×2 (20:54→20:55)
[2021-11-06] MEDS: COLACE CAP 100 MG PO SCH (20:56)
[2021-11-06] MEDS: ZOCOR TAB 20 MG PO SCH (20:56)
[2021-11-06] MEDS: SNACK - Diabetic Appropriate PO SCH (21:26)
[2021-11-07 05:46] LABS: BASOPHILS # (AUTO) 0.1 X10^3/uL (0.0-0.1); BASOPHILS % (AUTO) 0.7 % (0.2-1.0); EOSINOPHILS # (AUTO) 0.3 x10^3/uL (0.0-0.2); EOSINOPHILS % (AUTO) 2.7 % (0.9-2.9); HEMOGLOBIN 8.5 g/dL (12.0-16.0); LYMPHOCYTES # (AUTO) 1.2 X10^3/uL (1.3-2.9); LYMPHOCYTES % (AUTO) 12.2 % (21.0-51.0); MEAN CORPUSCULAR HGB CONC 32.8 g/dL (33.0-35.0); MEAN CORPUSCULAR VOLUME 79.3 fL (80.0-100.0); MONOCYTES # (AUTO) 0.9 x10^3/uL (0.3-0.8); MONOCYTES % (AUTO) 9.2 % (0.0-13.0); NEUTROPHILS # (AUTO) 7.2 x10^3/uL (2.2-4.8); NEUTROPHILS % (AUTO) 75.2 % (42.0-75.0); RED BLOOD COUNT 3.27 X10^6/uL (3.5-5.4); RED CELL DISTRIBUTION WIDTH 17.5 % (11.6-16.5); WHITE BLOOD COUNT 9.6 X10^3/uL (3.6-10.0)
[2021-11-07 05:56] LABS: ALANINE AMINOTRANSFERASE 12 Units/L (12-78); ALKALINE PHOSPHATASE 78 Units/L (46-116); ASPARTATE AMINO TRANSFERASE 13 Units/L (15-37); BLOOD UREA NITROGEN 21 mg/dL (7-18); CALCIUM 10.1 mg/dL (8.5-10.1); CHLORIDE 101 mmol/L (98-107); COR CA(FOR HYPOALB) 10.9 mg/dL (8.5-10.1); COR NA(FOR HYPERGLY) 143 mmol/L (136-145); CREATININE 1.04 mg/dL (0.55-1.02); SODIUM 142 mmol/L (136-145); TOTAL PROTEIN 6.1 g/dL (6.4-8.2); eGFR NON BLACK RACES 54 (>60)
[2021-11-07] MEDS: ENTRESTO 24/26 MG TAB PO SCH ×2 (08:40→20:55)
[2021-11-07] MEDS: COREG TAB 6.25 MG PO SCH ×2 (08:40→20:56)
[2021-11-07] MEDS: ELIQUIS PO SCH ×2 (08:40→20:57)
[2021-11-07] MEDS: K-DUR TAB 20 MEQ PO SCH ×2 (08:40→20:56)
[2021-11-07] MEDS: LASIX IVP SCH ×2 (08:41→15:21)
[2021-11-07] MEDS: NexIUM PO SCH (08:41)
--- NOTE | 2021-11-07 10:44 | RAD ---
HISTORYShortness of breathSTUDYChest AP [id number]/20/2022FINDINGSTher e is a pacemaker present on the left obscuring a portion of the left upper lobe. Heart is enlarged. No congestive heart failure is noted. No acute alveolar infiltrates or pleural effusions are identified. Bony thorax is unremarkable.IMPRESSIONCardiomegaly without congestive heart failureNo definite infiltratesElectronically signed by: CHANTELLE STONE (Nov 07, 2021 10:42:52)
[2021-11-07] MEDS: TYLENOL 325 MG TAB PO PRN (12:32)
[2021-11-07] MEDS: INVanz INJ 1 GRAM VIAL 1 G in NS 100 ML IV 100 ML IV SCH (17:00)
[2021-11-07] MEDS ORDERED: TYLENOL 325 MG TAB PO PRN (17:34)
[2021-11-07] MEDS: COLACE CAP 100 MG PO SCH (20:56)
[2021-11-07] MEDS: MILK OF MAGNESIA PO SCH (20:57)
[2021-11-07] MEDS: ZOCOR TAB 20 MG PO SCH (20:57)
[2021-11-07] MEDS: SNACK - Diabetic Appropriate PO SCH (21:02)
[2021-11-07] MEDS: NovoLIN R (or HumuLIN R) SUBCUT PRN (21:03)
[2021-11-08 05:51] LABS: BASOPHILS # (AUTO) 0.1 X10^3/uL (0.0-0.1); BASOPHILS % (AUTO) 0.7 % (0.2-1.0); EOSINOPHILS # (AUTO) 0.3 x10^3/uL (0.0-0.2); EOSINOPHILS % (AUTO) 4.4 % (0.9-2.9); HEMATOCRIT 25.6 % (36.0-47.0); HEMOGLOBIN 8.3 g/dL (12.0-16.0); LYMPHOCYTES # (AUTO) 1.1 X10^3/uL (1.3-2.9); LYMPHOCYTES % (AUTO) 14.8 % (21.0-51.0); MEAN CORPUSCULAR HEMOGLOBIN 26.2 pg (27.0-34.0); MEAN CORPUSCULAR HGB CONC 32.6 g/dL (33.0-35.0); MEAN CORPUSCULAR VOLUME 80.3 fL (80.0-100.0); MEAN PLATELET VOLUME 7.5 fL (7.4-11.0); MONOCYTES # (AUTO) 0.7 x10^3/uL (0.3-0.8); NEUTROPHILS # (AUTO) 5.4 x10^3/uL (2.2-4.8); NEUTROPHILS % (AUTO) 71.1 % (42.0-75.0); RED BLOOD COUNT 3.19 X10^6/uL (3.5-5.4); RED CELL DISTRIBUTION WIDTH 17.3 % (11.6-16.5); WHITE BLOOD COUNT 7.6 X10^3/uL (3.6-10.0)
[2021-11-08 06:01] LABS: ALANINE AMINOTRANSFERASE 12 Units/L (12-78); ALBUMIN 2.6 g/dL (3.4-5.0); ALKALINE PHOSPHATASE 72 Units/L (46-116); ASPARTATE AMINO TRANSFERASE 13 Units/L (15-37); BLOOD UREA NITROGEN 25 mg/dL (7-18); CALCIUM 9.8 mg/dL (8.5-10.1); CARBON DIOXIDE 38.6 mmol/L (21-32); CHLORIDE 102 mmol/L (98-107); COR CA(FOR HYPOALB) 10.9 mg/dL (8.5-10.1); COR NA(FOR HYPERGLY) 143 mmol/L (136-145); CREATININE 1.08 mg/dL (0.55-1.02); SODIUM 142 mmol/L (136-145); TOTAL PROTEIN 5.8 g/dL (6.4-8.2); eGFR NON BLACK RACES 51 (>60)
--- NOTE | 2021-11-08 07:14 | RAD ---
HISTORYPainSTUDYLeft foot three viewsCOMPARISONNoneFINDINGSModerately severe osteopenia and diffuse soft tissue swelling of the ankle and foot. No obvious fracture, dislocation or bone destruction noted.IMPRESSIONOsteopenia and marked soft tissue swelling.Electronically signed by: DEMARCUS WHELAN (Nov 08, 2021 07:13:14)
--- NOTE | 2021-11-08 07:15 | RAD ---
HISTORYPainSTUDYLeft ankle three viewsCOMPARISONNoneFINDINGSAge-appropria te demineralization with diffuse soft tissue swelling of the leg and ankle. No acute fracture identified. The joint space is symmetric.IMPRESSIONOsteopenia and nonspecific soft tissue swelling.Electronically signed by: DEMARCUS WHELAN (Nov 08, 2021 07:14:41)
--- NOTE | 2021-11-08 07:19 | RAD ---
HISTORYPainSTUDYLeft knee three viewsCOMPARISONNoneFINDINGSArthroplasty components are anatomically related without evidence for dislocation or fracture, loosening or infection. There is soft tissue calcification of the distal quadriceps tendon. No synovial effusion is demonstrated.IMPRESSIONNo acute findings identified involving left TKA.Electronically signed by: DEMARCUS WHELAN (Nov 08, 2021 07:17:27)
[2021-11-08] MEDS: ELIQUIS PO SCH ×2 (08:43→20:35)
[2021-11-08] MEDS: K-DUR TAB 20 MEQ PO SCH ×2 (08:43→20:34)
[2021-11-08] MEDS: ENTRESTO 24/26 MG TAB PO SCH ×2 (08:43→20:33)
[2021-11-08] MEDS: NexIUM PO SCH (08:44)
[2021-11-08] MEDS: COREG TAB 6.25 MG PO SCH ×2 (08:44→20:33)
[2021-11-08] MEDS: LASIX IVP SCH ×2 (08:48→20:36)
--- NOTE | 2021-11-08 17:02 | PCM.PROG ---
Progress Note - Subjective Subjective: PT IS 81 YO WF WHO WAS ADMITTED PER HPI. HGB HAS REMAINED STABLE. PT HAS EXTERNAL HEMORRHOIDS, SUSPECTED SOURCE OF BRIGHT RED BLEEDING. WILL CONTINUE TO MONITOR. PATIENT REPORTS CHRONIC CONSTIPATION HOWEVER SHE DID HAVE BM YESTERDAY; REPORTS IT WAS ADEQUATE AND LARGE. EDEMA HAS IMPROVED. PATIENT REPORTS IMPROVEMENT IN SYMPTOMS. PATIENT IS PENDING SWING BED. PATIENT WORKING WITH PT AND TOLERATING WELL. NO OTHER CONCERNS AT PRESENT. LABS AND VITALS REVIEWED AND ADDRESSED NEEDED. - Past Medical Family Social History Past Med/Fam/Surg Hx: No changes since H&P Allergies: Allergies amoxicillin Allergy (Verified 05/22/17 11:41) - Review of Systems ROS: No change since H&P - Vital Signs and I&O's Vital Signs: Temperature 99.3 F Pulse Rate [Brachial] 80 Pulse Rate 74 Respiratory Rate 20 Blood Pressure [Left Arm] 108/54 Blood Pressure [Right Arm] 130/61 Blood Pressure 136/69 O2 Sat by Pulse Oximetry 93 Intake and Output: Intake & Output 11/05/21 11/06/21 11/07/21 11/08/21 23:59 23:59 23:59 23:59 Intake Total 2614 / 2614 1250 / 1250 2285 / 2285 1102 / 1102 Output Total 2110 / 2110 1640 / 1640 6600 / 6600 3025 / 3025 Balance 504 / 504 -390 / -390 -4315 / -4315 -1923 / -1923 - Physical Exam Oriented: Normal Eyes: Normal Ear: Normal Nose: Normal Throat: Normal Respiratory: Diminished (DIMINISHED BILATERAL LOWER LOBES) Cardiovascular: Irregular, Edema (+2 BILATERAL LOWER EXT EDEMA (IMPROVED)) : Other (WATSON-URINE IN WATSON BAG CLEAR) Auscultation: Bowel Sounds: Normal Palpation: Normal Tenderness: Normal Skin: Decreased Turgur Musculoskeletal: Right, Left, Leg, Back:Lumbar, Tender Psychiatric: Normal Mood Description: Calm Affect: Normal Speech Pattern: Clear, Appropriate - Laboratory and Diagnostics Result Diagrams: 11/08/21 05:26 11/08/21 05:26 Labs: 11/03/21 16:00 Urine,Catheterized Urine Culture - Final Escherichia Coli Laboratory WBC 7.6 X10^3/uL (3.6-10.0) 11/08/21 05:26 RBC 3.19 X10^6/uL (3.5-5.4) L 11/08/21 05:26 Hgb 8.3 g/dL (12.0-16.0) L 11/08/21 05:26 Hct 25.6 % (36.0-47.0) L 11/08/21 05:26 MCV 80.3 fL (80.0-100.0) 11/08/21 05:26 MCH 26.2 pg (27.0-34.0) L 11/08/21 05:26 MCHC 32.6 g/dL (33.0-35.0) L 11/08/21 05:26 RDW 17.3 % (11.6-16.5) H 11/08/21 05:26 Plt Count 145 X10^3/uL (150.0-450.0) L 11/08/21 05:26 MPV 7.5 fL (7.4-11.0) 11/08/21 05:26 Neut % (Auto) 71.1 % (42.0-75.0) 11/08/21 05:26 Lymph % (Auto) 14.8 % (21.0-51.0) L 11/08/21 05:26 [facility] % (Auto) 9.0 % (0.0-13.0) 11/08/21 05:26 Eos % (Auto) 4.4 % (0.9-2.9) H 11/08/21 05:26 Baso % (Auto) 0.7 % (0.2-1.0) 11/08/21 05:26 Neut # (Auto) 5.4 x10^3/uL (2.2-4.8) H 11/08/21 05:26 Lymph # (Auto) 1.1 X10^3/uL (1.3-2.9) L 11/08/21 05:26 [facility] # (Auto) 0.7 x10^3/uL (0.3-0.8) 11/08/21 05:26 Eos # (Auto) 0.3 x10^3/uL (0.0-0.2) H 11/08/21 05:26 Baso # (Auto) 0.1 X10^3/uL (0.0-0.1) 11/08/21 05:26 Absolute Nucleated RBC 0.0 /100WBC 11/08/21 05:26 D-Dimer 0.58 ug/ml (0.0-0.57) H 11/02/21 17:00 Sample Site Rrad 11/02/21 15:50 ABG pH 7.480 (7.35-7.45) H 11/02/21 15:50 ABG pCO2 49.0 mmHg (35.0-45.0) H 11/02/21 15:50 ABG pO2 71.0 mmHg (80.0-100.0) L 11/02/21 15:50 ABG HCO3 36.5 mmol/L (22-26) H* 11/02/21 15:50 ABG O2 Saturation 95.0 % (90-100) 11/02/21 15:50 ABG Base Excess 11.4 mmol/L (-2.0-2.0) H 11/02/21 15:50 Curtis Test Pos 11/02/21 15:50 A-a Gradient 17.0 mmHg 11/02/21 15:50 FiO2 21.0 11/02/21 15:50 Blood Gas Comments Pt fariba well elj 11/02/21 15:50 Sodium 142 mmol/L (136-145) 11/08/21 05:26 Corrected Sodium 143 mmol/L (136-145) 11/08/21 05:26 Potassium 3.9 mmol/L (3.5-5.1) 11/08/21 05:26 Chloride 102 mmol/L (98-107) 11/08/21 05:26 Carbon Dioxide 38.6 mmol/L (21-32) H 11/08/21 05:26 BUN 25 mg/dL (7-18) H 11/08/21 05:26 Creatinine 1.08 mg/dL (0.55-1.02) H 11/08/21 05:26 Est GFR (MDRD) Af Amer > 60 (>60) 11/08/21 05:26 Est GFR (MDRD) Non-Af 51 (>60) L 11/08/21 05:26 Glucose 145 mg/dL (65-99) H 11/08/21 05:26 POC Glucose (mg/dL) 151 mg/dL (65-99) H 11/08/21 16:14 Calcium 9.8 mg/dL (8.5-10.1) 11/08/21 05:26 Corrected Calcium 10.9 mg/dL (8.5-10.1) H 11/08/21 05:26 Iron 17 ug/dL (50-175) L 11/03/21 11:57 Transferrin 279 mg/dL (202-364) 11/03/21 11:57 Ferritin 16 ng/mL (8-252) 11/03/21 11:57 Total Bilirubin 0.30 mg/dL (0.2-1.0) 11/08/21 05:26 AST 13 Units/L (15-37) L 11/08/21 05:26 ALT 12 Units/L (12-78) 11/08/21 05:26 Alkaline Phosphatase 72 Units/L (46-116) 11/08/21 05:26 Creatine Kinase 17 Units/L (26-192) L 11/03/21 11:57 Troponin I High Sens 12.4 ng/L (4.0-60.0) 11/03/21 11:57 B-Natriuretic Peptide 110 pg/mL (0-79) H 11/07/21 05:13 Total Protein 5.8 g/dL (6.4-8.2) L 11/08/21 05:26 Albumin 2.6 g/dL (3.4-5.0) L 11/08/21 05:26 Globulin 3.2 g/dL (2.5-4.5) 11/08/21 05:26 Albumin/Globulin Ratio 0.8 Ratio (1.1-2.1) L 11/08/21 05:26 Vitamin B12 886 pg/mL (193-986) 11/03/21 11:57 Folate > 20.0 ng/mL (>8.6) 11/03/21 11:57 Specimen Type Catherized urine 11/03/21 16:00 Urine Color Pale yellow (YELLOW) 11/03/21 16:00 Urine Appearance Cloudy (CLEAR) 11/03/21 16:00 Urine pH 6.0 (5.0 - 8.0) 11/03/21 16:00 Ur Specific [place] 1.025 (1.000-1.030) 11/03/21 16:00 Urine Protein 2+ (NEGATIVE) 11/03/21 16:00 Urine Glucose (UA) Negative (NEGATIVE) 11/03/21 16:00 Urine Ketones Negative (NEGATIVE) 11/03/21 16:00 Urine Blood 2+ (NEGATIVE) 11/03/21 16:00 Urine Nitrite Negative (NEGATIVE) 11/03/21 16:00 Urine Bilirubin Negative (NEGATIVE) 11/03/21 16:00 Urine Urobilinogen Normal (NORMAL) 11/03/21 16:00 Ur Leukocyte Esterase 2+ (NEGATIVE) 11/03/21 16:00 Urine RBC 20-30 /HPF (0-3) A 11/03/21 16:00 Urine WBC 30-50 /HPF (0-5) A 11/03/21 16:00 Ur Squamous Epith Cells Rare /HPF (NEGATIVE) 11/03/21 16:00 Amorphous Sediment 1+ /HPF (NEGATIVE) 11/03/21 16:00 Urine Bacteria 2+ /HPF (NEGATIVE) 11/03/21 16:00 Ur Culture Indicated? Yes/culture set up 11/03/21 16:00 Stool Description 100g loose brown 11/06/21 10:10 Stl Occult Blood (IFOB) Positive (NEGATIVE) A 11/06/21 10:10 SARS-CoV-2 (PCR) Negative (NEGATIVE) 11/07/21 12:25 Influenza Type A (PCR) Negative (NEGATIVE) 11/02/21 20:45 Influenza Type B (PCR) Negative (NEGATIVE) 11/02/21 20:45 RSV (PCR) Negative (NEGATIVE) 11/02/21 20:45 Blood Type O POSITIVE 11/03/21 11:57 Antibody Screen Negative 11/03/21 11:57 Crossmatch See Detail 11/03/21 11:57 - Plan (1) UTI (urinary tract infection) Status: Acute Plan: MULTI DRUG RESISTANT UTI. CONTINUE IV ABX. WILL NEED 10 DAYS TOTAL OF ERTAPENEM (2) Drug (multiple) resistant infection Status: Acute (3) SOB (shortness of breath) Status: Acute Plan: IMPROVED (4) Anemia Status: Chronic Plan: ANEMIA OF CHRONIC DISEASE. STABLE. MONITOR (5) CHF (congestive heart failure) Status: Chronic Plan: HOME MEDS (6) Diabetes Status: Chronic Plan: HOME MEDS (7) A-fib Status: Chronic Plan: STABLE. HOME MEDS (8) Weakness Status: Acute Plan: PHYSICAL THERAPY. SWING BED/REHAB
[2021-11-08] MEDS: INVanz INJ 1 GRAM VIAL 1 G in NS 100 ML IV 100 ML IV SCH (17:27)
[2021-11-08] MEDS: SNACK - Diabetic Appropriate PO SCH (20:00)
[2021-11-08] MEDS: ZOCOR TAB 20 MG PO SCH (20:33)
[2021-11-08] MEDS: COLACE CAP 100 MG PO SCH (20:34)
[2021-11-08] MEDS: MILK OF MAGNESIA PO SCH (20:36)
[2021-11-08] MEDS: NovoLIN R (or HumuLIN R) SUBCUT PRN (21:14)
[2021-11-09 06:05] LABS: BASOPHILS % (AUTO) 0.5 % (0.2-1.0); EOSINOPHILS # (AUTO) 0.2 x10^3/uL (0.0-0.2); HEMATOCRIT 26.8 % (36.0-47.0); HEMOGLOBIN 8.7 g/dL (12.0-16.0); LYMPHOCYTES # (AUTO) 1.2 X10^3/uL (1.3-2.9); LYMPHOCYTES % (AUTO) 14.5 % (21.0-51.0); MEAN CORPUSCULAR HGB CONC 32.3 g/dL (33.0-35.0); MEAN CORPUSCULAR VOLUME 80.3 fL (80.0-100.0); MEAN PLATELET VOLUME 7.7 fL (7.4-11.0); MONOCYTES # (AUTO) 0.8 x10^3/uL (0.3-0.8); MONOCYTES % (AUTO) 9.4 % (0.0-13.0); NEUTROPHILS # (AUTO) 5.8 x10^3/uL (2.2-4.8); NEUTROPHILS % (AUTO) 72.6 % (42.0-75.0); RED BLOOD COUNT 3.34 X10^6/uL (3.5-5.4); RED CELL DISTRIBUTION WIDTH 17.6 % (11.6-16.5)
[2021-11-09 06:21] LABS: ALANINE AMINOTRANSFERASE 21 Units/L (12-78); ALBUMIN 2.7 g/dL (3.4-5.0); ALKALINE PHOSPHATASE 83 Units/L (46-116); ASPARTATE AMINO TRANSFERASE 23 Units/L (15-37); BLOOD UREA NITROGEN 22 mg/dL (7-18); CALCIUM 10.3 mg/dL (8.5-10.1); CARBON DIOXIDE 38.1 mmol/L (21-32); CHLORIDE 103 mmol/L (98-107); COR CA(FOR HYPOALB) 11.3 mg/dL (8.5-10.1); COR NA(FOR HYPERGLY) 144 mmol/L (136-145); CREATININE 0.94 mg/dL (0.55-1.02); MAGNESIUM 1.9 mg/dL (1.7-2.9); SODIUM 143 mmol/L (136-145); TOTAL PROTEIN 6.1 g/dL (6.4-8.2); eGFR NON BLACK RACES > 60 (>60)
[2021-11-09] MEDS: NovoLIN R (or HumuLIN R) SUBCUT PRN (06:56)
[2021-11-09] MEDS: COREG TAB 6.25 MG PO SCH ×2 (08:53→21:10)
[2021-11-09] MEDS: ELIQUIS PO SCH ×2 (08:53→21:10)
[2021-11-09] MEDS: ENTRESTO 24/26 MG TAB PO SCH ×2 (08:53→21:11)
[2021-11-09] MEDS: K-DUR TAB 20 MEQ PO SCH ×2 (08:54→21:11)
[2021-11-09] MEDS: NexIUM PO SCH (08:54)
[2021-11-09] MEDS: LASIX IVP SCH ×2 (08:54→21:11)
[2021-11-09 14:55] VITALS: BMI 43.2
[2021-11-09] MEDS: INVanz INJ 1 GRAM VIAL 1 G in NS 100 ML IV 100 ML IV SCH (20:08)
[2021-11-09] MEDS: SNACK - Diabetic Appropriate PO SCH (20:58)
[2021-11-09] MEDS: COLACE CAP 100 MG PO SCH (21:10)
[2021-11-09] MEDS: ZOCOR TAB 20 MG PO SCH (21:11)
[2021-11-09] MEDS: MILK OF MAGNESIA PO SCH (21:11)
[2021-11-10 06:21] LABS: BASOPHILS # (AUTO) 0.1 X10^3/uL (0.0-0.1); BASOPHILS % (AUTO) 0.8 % (0.2-1.0); EOSINOPHILS # (AUTO) 0.3 x10^3/uL (0.0-0.2); EOSINOPHILS % (AUTO) 3.5 % (0.9-2.9); HEMATOCRIT 27.5 % (36.0-47.0); HEMOGLOBIN 8.9 g/dL (12.0-16.0); LYMPHOCYTES # (AUTO) 1.2 X10^3/uL (1.3-2.9); LYMPHOCYTES % (AUTO) 15.8 % (21.0-51.0); MEAN CORPUSCULAR HGB CONC 32.3 g/dL (33.0-35.0); MEAN CORPUSCULAR VOLUME 80.3 fL (80.0-100.0); MEAN PLATELET VOLUME 7.7 fL (7.4-11.0); MONOCYTES # (AUTO) 0.6 x10^3/uL (0.3-0.8); MONOCYTES % (AUTO) 8.6 % (0.0-13.0); NEUTROPHILS # (AUTO) 5.3 x10^3/uL (2.2-4.8); NEUTROPHILS % (AUTO) 71.3 % (42.0-75.0); RED BLOOD COUNT 3.42 X10^6/uL (3.5-5.4); RED CELL DISTRIBUTION WIDTH 17.6 % (11.6-16.5); WHITE BLOOD COUNT 7.4 X10^3/uL (3.6-10.0)
[2021-11-10 06:33] LABS: ALANINE AMINOTRANSFERASE 28 Units/L (12-78); ALBUMIN 2.6 g/dL (3.4-5.0); ALKALINE PHOSPHATASE 82 Units/L (46-116); ASPARTATE AMINO TRANSFERASE 27 Units/L (15-37); BLOOD UREA NITROGEN 22 mg/dL (7-18); CALCIUM 10.4 mg/dL (8.5-10.1); CARBON DIOXIDE 39.6 mmol/L (21-32); CHLORIDE 103 mmol/L (98-107); COR CA(FOR HYPOALB) 11.5 mg/dL (8.5-10.1); COR NA(FOR HYPERGLY) 145 mmol/L (136-145); CREATININE 0.95 mg/dL (0.55-1.02); SODIUM 144 mmol/L (136-145); TOTAL PROTEIN 6.1 g/dL (6.4-8.2); eGFR NON BLACK RACES 60 (>60)
[2021-11-10] MEDS: COREG TAB 6.25 MG PO SCH ×2 (08:22→20:47)
[2021-11-10] MEDS: ELIQUIS PO SCH ×2 (08:22→20:47)
[2021-11-10] MEDS: NexIUM PO SCH (08:23)
[2021-11-10] MEDS: K-DUR TAB 20 MEQ PO SCH ×2 (08:23→20:48)
[2021-11-10] MEDS: ENTRESTO 24/26 MG TAB PO SCH ×2 (08:23→20:48)
[2021-11-10] MEDS: LASIX IVP SCH ×2 (08:23→20:48)
[2021-11-10] MEDS: NovoLIN R (or HumuLIN R) SUBCUT PRN ×2 (11:26→16:34)
--- NOTE | 2021-11-10 11:43 | PCM.PROG ---
Progress Note - Progress Note for Day of Date of Exam: 11/09/21 - Subjective Subjective: IS A 81 YEAR OLD PATIENT OF . SHE IS CURRENTLY INPATIENT STATUS FOR TREATMENT OF CHF, MULTI-DRUG RESISTENT E.COLI UTI, LOWER GI BLEED, DM II, AND GENERALIZED WEAKNESS. SHE HAS RECEIVED ONE UNIT OF PACKED RED BLOOD CELLS. TODAY, SHE IS ALERT AND ORIENTED, LYING IN BED ON MORNING ROUNDS. SHE CONTINUES TO COMPLAIN OF WEAKNESS AND SHORTNESS OF BREATH AT TIMES, BUT DENIES OTHER COMPLAINTS. SHE HAS NOT HAD ANY SIGNIFICANT BLEEDING FROM HEMORRHOIDS AND HAS HAD AN UNEVENTFUL NIGHT. ON EXAMINATION, HEART IS REGULAR IN RATE AND RHYTHM. BILATERAL LUNGS ARE NOTED WITH DIMINISHED LUNG SOUNDS THROUGHOUT. ABDOMEN IS OBESE, SOFT, AND NON-TENDER WITH NORMAL BOWEL SOUNDS NOTED IN ALL QUADRANTS. BILATERAL LOWER EXTREMITIES ARE NOTED WITH 1+ PITTING EDEMA. A WATSON CATHETER IS NOTED TO BEDSIDE DRAINAGE. HER VITALS THIS MORNING ARE: 97.5-92-20-93%-119/62. LABS WERE OBTAINED. ABNORMAL LAB VALUES INCLUDE THE FOLLOWING: WBC 8.0, RBC 3.34, HGB 8.7, HCT 26.8, PLT COUNT 153, SODIUM 143, POTASSIUM 3.9, CHLORIDE 103, CARBON DIOXIDE 38.1, BUN 22, CREATININE 0.94, GLUCOSE 152, CALCIUM 10.3, AST 23, ALT 21, ALK PHOS 11.3, MAGNESIUM 1.9, TOTAL PROTEIN 6.1, ALBUMIN 2.7. SHE IS CURRENTLY RECEIVING INVANZ 1G IV DAILY, LASIX 40MG IV BID, OTBS ACHS, HUMULIN R SLIDING SCALE. HER HOME MEDICATIONS OF ENTRESTO, TRAMADOL, ZOCOR, POTASSIUM CHLORIDE, NEXIUM, COLACE, COREG, AND ELIQUIS WERE ALSO RESUMED. SHE IS CURRENTLY RECEIVING PHYSICAL THERAPY AND PLANS ARE FOR HER TO TRANSITION TO SWINGBED STATUS SOON. WE WILL CONTINUE WITH CURRENT PLAN OF CARE TODAY. OTHERWISE, WE WILL FOLLOW-UP WITH AM LABS AND CONTINUE TO MONITOR. TIME SPENT ON CLINICAL ASSESSMENT, REVIEWING LABS AND IMAGING, DECISION MAKING, AND DOCUMENTATION GREATER THAN 45 MINUTES. - Past Medical Family Social History Past Med/Fam/Surg Hx: No changes since H&P Allergies: Allergies amoxicillin Allergy (Verified 05/22/17 11:41) - Review of Systems ROS: No change since H&P - Vital Signs and I&O's Vital Signs: Temperature 98.6 F Pulse Rate [Brachial] 78 Pulse Rate 74 Respiratory Rate 20 Blood Pressure [Left Arm] 97/65 Blood Pressure [Right Arm] 130/61 Blood Pressure 136/69 O2 Sat by Pulse Oximetry 95 Intake and Output: Intake & Output 11/07/21 11/08/21 11/09/21 11/10/21 11:59 11:59 11:59 11:59 Intake Total 1719 / 1719 1907 / 1907 2251 / 2251 1712 / 1712 Output Total 3700 / 3700 4025 / 4025 4125 / 4125 3400 / 3400 Balance -1980 / -1980 -2117 / -2117 -187 / -187 -1687 / -1687 - Physical Exam Oriented: Normal Eyes: Normal Ear: Normal Nose: Normal Throat: Normal Respiratory: Diminished (DIMINISHED BILATERAL LOWER LOBES) Cardiovascular: Irregular, Edema (+1 BILATERAL LOWER EXT EDEMA) : Other (WATSON-URINE IN WATSON BAG CLEAR) Auscultation: Bowel Sounds: Normal Palpation: Normal Tenderness: Normal Skin: Normal Musculoskeletal: Right, Left, Leg, Back:Lumbar, Tender Psychiatric: Normal Mood Description: Calm Affect: Normal Speech Pattern: Clear, Appropriate - Laboratory and Diagnostics Result Diagrams: 11/10/21 05:15 11/10/21 05:45 Labs: 11/03/21 16:00 Urine,Catheterized Urine Culture - Final Escherichia Coli Laboratory WBC 7.4 X10^3/uL (3.6-10.0) 11/10/21 05:15 RBC 3.42 X10^6/uL (3.5-5.4) L 11/10/21 05:15 Hgb 8.9 g/dL (12.0-16.0) L 11/10/21 05:15 Hct 27.5 % (36.0-47.0) L 11/10/21 05:15 MCV 80.3 fL (80.0-100.0) 11/10/21 05:15 MCH 26.0 pg (27.0-34.0) L 11/10/21 05:15 MCHC 32.3 g/dL (33.0-35.0) L 11/10/21 05:15 RDW 17.6 % (11.6-16.5) H 11/10/21 05:15 Plt Count 162 X10^3/uL (150.0-450.0) 11/10/21 05:15 MPV 7.7 fL (7.4-11.0) 11/10/21 05:15 Neut % (Auto) 71.3 % (42.0-75.0) 11/10/21 05:15 Lymph % (Auto) 15.8 % (21.0-51.0) L 11/10/21 05:15 [place] % (Auto) 8.6 % (0.0-13.0) 11/10/21 05:15 Eos % (Auto) 3.5 % (0.9-2.9) H 11/10/21 05:15 Baso % (Auto) 0.8 % (0.2-1.0) 11/10/21 05:15 Neut # (Auto) 5.3 x10^3/uL (2.2-4.8) H 11/10/21 05:15 Lymph # (Auto) 1.2 X10^3/uL (1.3-2.9) L 11/10/21 05:15 [place] # (Auto) 0.6 x10^3/uL (0.3-0.8) 11/10/21 05:15 Eos # (Auto) 0.3 x10^3/uL (0.0-0.2) H 11/10/21 05:15 Baso # (Auto) 0.1 X10^3/uL (0.0-0.1) 11/10/21 05:15 Absolute Nucleated RBC 0.0 /100WBC 11/10/21 05:15 D-Dimer 0.58 ug/ml (0.0-0.57) H 11/02/21 17:00 Sample Site Rrad 11/02/21 15:50 ABG pH 7.480 (7.35-7.45) H 11/02/21 15:50 ABG pCO2 49.0 mmHg (35.0-45.0) H 11/02/21 15:50 ABG pO2 71.0 mmHg (80.0-100.0) L 11/02/21 15:50 ABG HCO3 36.5 mmol/L (22-26) H* 11/02/21 15:50 ABG O2 Saturation 95.0 % (90-100) 11/02/21 15:50 ABG Base Excess 11.4 mmol/L (-2.0-2.0) H 11/02/21 15:50 Curtis Test Pos 11/02/21 15:50 A-a Gradient 17.0 mmHg 11/02/21 15:50 FiO2 21.0 11/02/21 15:50 Blood Gas Comments Pt fariba well elj 11/02/21 15:50 Sodium 144 mmol/L (136-145) 11/10/21 05:45 Corrected Sodium 145 mmol/L (136-145) 11/10/21 05:45 Potassium 4.1 mmol/L (3.5-5.1) 11/10/21 05:45 Chloride 103 mmol/L (98-107) 11/10/21 05:45 Carbon Dioxide 39.6 mmol/L (21-32) H 11/10/21 05:45 BUN 22 mg/dL (7-18) H 11/10/21 05:45 Creatinine 0.95 mg/dL (0.55-1.02) 11/10/21 05:45 Est GFR (MDRD) Af Amer > 60 (>60) 11/10/21 05:45 Est GFR (MDRD) Non-Af 60 (>60) 11/10/21 05:45 Glucose 151 mg/dL (65-99) H 11/10/21 05:45 POC Glucose (mg/dL) 162 mg/dL (65-99) H 11/10/21 11:01 Calcium 10.4 mg/dL (8.5-10.1) H 11/10/21 05:45 Corrected Calcium 11.5 mg/dL (8.5-10.1) H 11/10/21 05:45 Magnesium 2.2 mg/dL (1.7-2.9) 11/10/21 05:45 Iron 17 ug/dL (50-175) L 11/03/21 11:57 Transferrin 279 mg/dL (202-364) 11/03/21 11:57 Ferritin 16 ng/mL (8-252) 11/03/21 11:57 Total Bilirubin 0.30 mg/dL (0.2-1.0) 11/10/21 05:45 AST 27 Units/L (15-37) 11/10/21 05:45 ALT 28 Units/L (12-78) 11/10/21 05:45 Alkaline Phosphatase 82 Units/L (46-116) 11/10/21 05:45 Creatine Kinase 17 Units/L (26-192) L 11/03/21 11:57 Troponin I High Sens 12.4 ng/L (4.0-60.0) 11/03/21 11:57 B-Natriuretic Peptide 110 pg/mL (0-79) H 11/07/21 05:13 Total Protein 6.1 g/dL (6.4-8.2) L 11/10/21 05:45 Albumin 2.6 g/dL (3.4-5.0) L 11/10/21 05:45 Globulin 3.5 g/dL (2.5-4.5) 11/10/21 05:45 Albumin/Globulin Ratio 0.7 Ratio (1.1-2.1) L 11/10/21 05:45 Vitamin B12 886 pg/mL (193-986) 11/03/21 11:57 Folate > 20.0 ng/mL (>8.6) 11/03/21 11:57 Specimen Type Catherized urine 11/03/21 16:00 Urine Color Pale yellow (YELLOW) 11/03/21 16:00 Urine Appearance Cloudy (CLEAR) 11/03/21 16:00 Urine pH 6.0 (5.0 - 8.0) 11/03/21 16:00 Ur Specific [place] 1.025 (1.000-1.030) 11/03/21 16:00 Urine Protein 2+ (NEGATIVE) 11/03/21 16:00 Urine Glucose (UA) Negative (NEGATIVE) 11/03/21 16:00 Urine Ketones Negative (NEGATIVE) 11/03/21 16:00 Urine Blood 2+ (NEGATIVE) 11/03/21 16:00 Urine Nitrite Negative (NEGATIVE) 11/03/21 16:00 Urine Bilirubin Negative (NEGATIVE) 11/03/21 16:00 Urine Urobilinogen Normal (NORMAL) 11/03/21 16:00 Ur Leukocyte Esterase 2+ (NEGATIVE) 11/03/21 16:00 Urine RBC 20-30 /HPF (0-3) A 11/03/21 16:00 Urine WBC 30-50 /HPF (0-5) A 11/03/21 16:00 Ur Squamous Epith Cells Rare /HPF (NEGATIVE) 11/03/21 16:00 Amorphous Sediment 1+ /HPF (NEGATIVE) 11/03/21 16:00 Urine Bacteria 2+ /HPF (NEGATIVE) 11/03/21 16:00 Ur Culture Indicated? Yes/culture set up 11/03/21 16:00 Stool Description 100g loose brown 11/06/21 10:10 Stl Occult Blood (IFOB) Positive (NEGATIVE) A 11/06/21 10:10 SARS-CoV-2 (PCR) Negative (NEGATIVE) 11/07/21 12:25 Influenza Type A (PCR) Negative (NEGATIVE) 11/02/21 20:45 Influenza Type B (PCR) Negative (NEGATIVE) 11/02/21 20:45 RSV (PCR) Negative (NEGATIVE) 11/02/21 20:45 Blood Type O POSITIVE 11/03/21 11:57 Antibody Screen Negative 11/03/21 11:57 Crossmatch See Detail 11/03/21 11:57 - Plan (1) UTI (urinary tract infection) Status: Acute Qualifiers: Urinary tract infection type: site unspecified Hematuria presence: with hematuria Qualified Code(s): N39.0 - Urinary tract infection, site not specified; R31.9 - Hematuria, unspecified Plan: MULTI DRUG RESISTANT UTI. CONTINUE IV ABX. WILL NEED 10 DAYS TOTAL OF ERTAPENEM (2) CHF (congestive heart failure) Status: Chronic Qualifiers: Heart failure chronicity: acute on chronic Plan: HOME MEDS (3) Anemia Status: Chronic Qualifiers: Anemia type: iron deficiency Iron deficiency anemia type: chronic blood loss Qualified Code(s): D50.0 - Iron deficiency anemia secondary to blood loss (chronic) Plan: ANEMIA OF CHRONIC DISEASE. STABLE. MONITOR (4) Lower GI bleed Status: Acute Plan: CONTINUE TO MONITOR (5) Diabetes Status: Chronic Qualifiers: Diabetes mellitus type: type 2 Diabetes mellitus fci insulin use: with fci use Diabetes mellitus complication status: with hyperglycemia Qualified Code(s): E11.65 - Type 2 diabetes mellitus with hyperglycemia; Z79.4 - senior care (current) use of insulin Plan: HOME MEDS
--- NOTE | 2021-11-10 11:58 | PCM.PROG ---
Progress Note - Progress Note for Day of Date of Exam: 11/10/21 - Subjective Subjective: IS A 81 YEAR OLD PATIENT OF . SHE IS CURRENTLY INPATIENT STATUS FOR TREATMENT OF CHF, MULTI-DRUG RESISTENT E.COLI UTI, LOWER GI BLEED, DM II, AND GENERALIZED WEAKNESS. TODAY, SHE IS ALERT AND ORIENTED, LYING IN BED ON MORNING ROUNDS. SHE CONTINUES TO COMPLAIN OF WEAKNESS AND SHORTNESS OF BREATH AT TIMES, BUT DENIES OTHER COMPLAINTS. SHE HAS NOT HAD ANY SIGNIFICANT BLEEDING FROM HEMORRHOIDS AND HAS HAD AN UNEVENTFUL NIGHT. ON EXAMINATION, HEART IS REGULAR IN RATE AND RHYTHM. BILATERAL LUNGS ARE NOTED WITH DIMINISHED LUNG SOUNDS THROUGHOUT. ABDOMEN IS OBESE, SOFT, AND NON-TENDER WITH NORMAL BOWEL SOUNDS NOTED IN ALL QUADRANTS. BILATERAL LOWER EXTREMITIES ARE NOTED WITH 1+ PITTING EDEMA. A WATSON CATHETER IS NOTED TO BEDSIDE DRAINAGE. HER VITALS THIS MORNING ARE: 98.6-78-20-95%-97/65. SHE IS CURRENTLY ON NASAL CANNULA AT 3 LPM. LABS WERE OBTAINED. ABNORMAL LAB VALUES INCLUDE THE FOLLOWING: WBC 7.4, RBC 3.42, HGB 8.9, HCT 27.5, PLT COUNT 162, SODIUM 144, POTASSIUM 4.1, CHLORIDE 103, CARBON DIOXIDE 39.6, BUN 22, CREATININE 0.95, GLUCOSE 151, CALCIUM 11.5, AST 27, ALT 28, ALK PHOS 82, TOTAL PROTEIN 6.1, ALBUMIN 2.6. SHE IS CURRENTLY RECEIVING INVANZ 1G IV DAILY, LASIX 40MG IV BID, OTBS ACHS, HUMULIN R SLIDING SCALE. HER HOME MEDICATIONS OF ENTRESTO, TRAMADOL, ZOCOR, POTASSIUM CHLORIDE, NEXIUM, COLACE, COREG, AND ELIQUIS WERE ALSO RESUMED. SHE IS CURRENTLY RECEIVING PHYSICAL THERAPY AND PLANS ARE FOR HER TO TRANSITION TO SWINGBED STATUS SOON. WE WILL CONTINUE WITH CURRENT PLAN OF CARE TODAY. OTHERWISE, WE WILL FOLLOW-UP WITH AM LABS AND CONTINUE TO MONITOR. TIME SPENT ON CLINICAL ASSESSMENT, REVIEWING LABS AND IMAGING, DECISION MAKING, AND DOCUMENTATION GREATER THAN 45 MINUTES. - Past Medical Family Social History Past Med/Fam/Surg Hx: No changes since H&P Allergies: Allergies amoxicillin Allergy (Verified 05/22/17 11:41) - Review of Systems ROS: No change since H&P - Vital Signs and I&O's Vital Signs: Temperature 98.6 F Pulse Rate [Brachial] 78 Pulse Rate 74 Respiratory Rate 20 Blood Pressure [Left Arm] 97/65 Blood Pressure [Right Arm] 130/61 Blood Pressure 136/69 O2 Sat by Pulse Oximetry 95 Intake and Output: Intake & Output 11/07/21 11/08/21 11/09/21 11/10/21 11:59 11:59 11:59 11:59 Intake Total 1719 / 1719 1907 / 1907 2251 / 2251 1712 / 1712 Output Total 3700 / 3700 4025 / 4025 4125 / 4125 3400 / 3400 Balance -1980 / -1980 -2117 / -2117 -1873 / -187 -1687 / -1687 - Physical Exam Oriented: Normal Eyes: Normal Ear: Normal Nose: Normal Throat: Normal Respiratory: Diminished (DIMINISHED BILATERAL LOWER LOBES) Cardiovascular: Irregular, Edema (+1 BILATERAL LOWER EXT EDEMA) : Other (WATSON-URINE IN WATSON BAG CLEAR) Auscultation: Bowel Sounds: Normal Tenderness: Normal Skin: Normal Musculoskeletal: Right, Left, Leg, Back:Lumbar, Tender Psychiatric: Normal Mood Description: Calm Affect: Normal Speech Pattern: Clear, Appropriate - Laboratory and Diagnostics Result Diagrams: 11/10/21 05:15 11/10/21 05:45 Labs: 11/03/21 16:00 Urine,Catheterized Urine Culture - Final Escherichia Coli Laboratory WBC 7.4 X10^3/uL (3.6-10.0) 11/10/21 05:15 RBC 3.42 X10^6/uL (3.5-5.4) L 11/10/21 05:15 Hgb 8.9 g/dL (12.0-16.0) L 11/10/21 05:15 Hct 27.5 % (36.0-47.0) L 11/10/21 05:15 MCV 80.3 fL (80.0-100.0) 11/10/21 05:15 MCH 26.0 pg (27.0-34.0) L 11/10/21 05:15 MCHC 32.3 g/dL (33.0-35.0) L 11/10/21 05:15 RDW 17.6 % (11.6-16.5) H 11/10/21 05:15 Plt Count 162 X10^3/uL (150.0-450.0) 11/10/21 05:15 MPV 7.7 fL (7.4-11.0) 11/10/21 05:15 Neut % (Auto) 71.3 % (42.0-75.0) 11/10/21 05:15 Lymph % (Auto) 15.8 % (21.0-51.0) L 11/10/21 05:15 [place] % (Auto) 8.6 % (0.0-13.0) 11/10/21 05:15 Eos % (Auto) 3.5 % (0.9-2.9) H 11/10/21 05:15 Baso % (Auto) 0.8 % (0.2-1.0) 11/10/21 05:15 Neut # (Auto) 5.3 x10^3/uL (2.2-4.8) H 11/10/21 05:15 Lymph # (Auto) 1.2 X10^3/uL (1.3-2.9) L 11/10/21 05:15 [place] # (Auto) 0.6 x10^3/uL (0.3-0.8) 11/10/21 05:15 Eos # (Auto) 0.3 x10^3/uL (0.0-0.2) H 11/10/21 05:15 Baso # (Auto) 0.1 X10^3/uL (0.0-0.1) 11/10/21 05:15 Absolute Nucleated RBC 0.0 /100WBC 11/10/21 05:15 D-Dimer 0.58 ug/ml (0.0-0.57) H 11/02/21 17:00 Sample Site Rrad 11/02/21 15:50 ABG pH 7.480 (7.35-7.45) H 11/02/21 15:50 ABG pCO2 49.0 mmHg (35.0-45.0) H 11/02/21 15:50 ABG pO2 71.0 mmHg (80.0-100.0) L 11/02/21 15:50 ABG HCO3 36.5 mmol/L (22-26) H* 11/02/21 15:50 ABG O2 Saturation 95.0 % (90-100) 11/02/21 15:50 ABG Base Excess 11.4 mmol/L (-2.0-2.0) H 11/02/21 15:50 Curtis Test Pos 11/02/21 15:50 A-a Gradient 17.0 mmHg 11/02/21 15:50 FiO2 21.0 11/02/21 15:50 Blood Gas Comments Pt fariba well elj 11/02/21 15:50 Sodium 144 mmol/L (136-145) 11/10/21 05:45 Corrected Sodium 145 mmol/L (136-145) 11/10/21 05:45 Potassium 4.1 mmol/L (3.5-5.1) 11/10/21 05:45 Chloride 103 mmol/L (98-107) 11/10/21 05:45 Carbon Dioxide 39.6 mmol/L (21-32) H 11/10/21 05:45 BUN 22 mg/dL (7-18) H 11/10/21 05:45 Creatinine 0.95 mg/dL (0.55-1.02) 11/10/21 05:45 Est GFR (MDRD) Af Amer > 60 (>60) 11/10/21 05:45 Est GFR (MDRD) Non-Af 60 (>60) 11/10/21 05:45 Glucose 151 mg/dL (65-99) H 11/10/21 05:45 POC Glucose (mg/dL) 162 mg/dL (65-99) H 11/10/21 11:01 Calcium 10.4 mg/dL (8.5-10.1) H 11/10/21 05:45 Corrected Calcium 11.5 mg/dL (8.5-10.1) H 11/10/21 05:45 Magnesium 2.2 mg/dL (1.7-2.9) 11/10/21 05:45 Iron 17 ug/dL (50-175) L 11/03/21 11:57 Transferrin 279 mg/dL (202-364) 11/03/21 11:57 Ferritin 16 ng/mL (8-252) 11/03/21 11:57 Total Bilirubin 0.30 mg/dL (0.2-1.0) 11/10/21 05:45 AST 27 Units/L (15-37) 11/10/21 05:45 ALT 28 Units/L (12-78) 11/10/21 05:45 Alkaline Phosphatase 82 Units/L (46-116) 11/10/21 05:45 Creatine Kinase 17 Units/L (26-192) L 11/03/21 11:57 Troponin I High Sens 12.4 ng/L (4.0-60.0) 11/03/21 11:57 B-Natriuretic Peptide 110 pg/mL (0-79) H 11/07/21 05:13 Total Protein 6.1 g/dL (6.4-8.2) L 11/10/21 05:45 Albumin 2.6 g/dL (3.4-5.0) L 11/10/21 05:45 Globulin 3.5 g/dL (2.5-4.5) 11/10/21 05:45 Albumin/Globulin Ratio 0.7 Ratio (1.1-2.1) L 11/10/21 05:45 Vitamin B12 886 pg/mL (193-986) 11/03/21 11:57 Folate > 20.0 ng/mL (>8.6) 11/03/21 11:57 Specimen Type Catherized urine 11/03/21 16:00 Urine Color Pale yellow (YELLOW) 11/03/21 16:00 Urine Appearance Cloudy (CLEAR) 11/03/21 16:00 Urine pH 6.0 (5.0 - 8.0) 11/03/21 16:00 Ur Specific [place] 1.025 (1.000-1.030) 11/03/21 16:00 Urine Protein 2+ (NEGATIVE) 11/03/21 16:00 Urine Glucose (UA) Negative (NEGATIVE) 11/03/21 16:00 Urine Ketones Negative (NEGATIVE) 11/03/21 16:00 Urine Blood 2+ (NEGATIVE) 11/03/21 16:00 Urine Nitrite Negative (NEGATIVE) 11/03/21 16:00 Urine Bilirubin Negative (NEGATIVE) 11/03/21 16:00 Urine Urobilinogen Normal (NORMAL) 11/03/21 16:00 Ur Leukocyte Esterase 2+ (NEGATIVE) 11/03/21 16:00 Urine RBC 20-30 /HPF (0-3) A 11/03/21 16:00 Urine WBC 30-50 /HPF (0-5) A 11/03/21 16:00 Ur Squamous Epith Cells Rare /HPF (NEGATIVE) 11/03/21 16:00 Amorphous Sediment 1+ /HPF (NEGATIVE) 11/03/21 16:00 Urine Bacteria 2+ /HPF (NEGATIVE) 11/03/21 16:00 Ur Culture Indicated? Yes/culture set up 11/03/21 16:00 Stool Description 100g loose brown 11/06/21 10:10 Stl Occult Blood (IFOB) Positive (NEGATIVE) A 11/06/21 10:10 SARS-CoV-2 (PCR) Negative (NEGATIVE) 11/07/21 12:25 Influenza Type A (PCR) Negative (NEGATIVE) 11/02/21 20:45 Influenza Type B (PCR) Negative (NEGATIVE) 11/02/21 20:45 RSV (PCR) Negative (NEGATIVE) 11/02/21 20:45 Blood Type O POSITIVE 11/03/21 11:57 Antibody Screen Negative 11/03/21 11:57 Crossmatch See Detail 11/03/21 11:57 - Plan (1) UTI (urinary tract infection) Status: Acute Qualifiers: Urinary tract infection type: site unspecified Hematuria presence: with hematuria Qualified Code(s): N39.0 - Urinary tract infection, site not specified; R31.9 - Hematuria, unspecified Plan: MULTI DRUG RESISTANT UTI. CONTINUE IV ABX. WILL NEED 10 DAYS TOTAL OF ERTAPENEM (2) CHF (congestive heart failure) Status: Chronic Qualifiers: Heart failure chronicity: acute on chronic Plan: HOME MEDS (3) Anemia Status: Chronic Qualifiers: Anemia type: iron deficiency Iron deficiency anemia type: chronic blood loss Qualified Code(s): D50.0 - Iron deficiency anemia secondary to blood loss (chronic) Plan: ANEMIA OF CHRONIC DISEASE. STABLE. MONITOR (4) Lower GI bleed Status: Acute Plan: CONTINUE TO MONITOR (5) Diabetes Status: Chronic Qualifiers: Diabetes mellitus type: type 2 Diabetes mellitus detention insulin use: with detention use Diabetes mellitus complication status: with hyperglycemia Qualified Code(s): E11.65 - Type 2 diabetes mellitus with hyperglycemia; Z79.4 - nursing home (current) use of insulin Plan: HOME MEDS
[2021-11-10] MEDS: INVanz INJ 1 GRAM VIAL 1 G in NS 100 ML IV 100 ML IV SCH (18:57)
[2021-11-10] MEDS: SNACK - Diabetic Appropriate PO SCH (20:47)
[2021-11-10] MEDS: ZOCOR TAB 20 MG PO SCH (20:47)
[2021-11-10] MEDS: COLACE CAP 100 MG PO SCH (20:47)
[2021-11-10] MEDS: MILK OF MAGNESIA PO SCH (20:48)
[2021-11-11 05:15] LABS: BASOPHILS # (AUTO) 0.1 X10^3/uL (0.0-0.1); BASOPHILS % (AUTO) 0.8 % (0.2-1.0); EOSINOPHILS # (AUTO) 0.3 x10^3/uL (0.0-0.2); EOSINOPHILS % (AUTO) 4.3 % (0.9-2.9); HEMATOCRIT 27.9 % (36.0-47.0); LYMPHOCYTES # (AUTO) 1.3 X10^3/uL (1.3-2.9); LYMPHOCYTES % (AUTO) 17.5 % (21.0-51.0); MEAN CORPUSCULAR HEMOGLOBIN 25.8 pg (27.0-34.0); MEAN CORPUSCULAR HGB CONC 32.1 g/dL (33.0-35.0); MEAN CORPUSCULAR VOLUME 80.2 fL (80.0-100.0); MEAN PLATELET VOLUME 7.7 fL (7.4-11.0); MONOCYTES # (AUTO) 0.6 x10^3/uL (0.3-0.8); MONOCYTES % (AUTO) 7.7 % (0.0-13.0); NEUTROPHILS # (AUTO) 5.3 x10^3/uL (2.2-4.8); NEUTROPHILS % (AUTO) 69.7 % (42.0-75.0); RED BLOOD COUNT 3.48 X10^6/uL (3.5-5.4); RED CELL DISTRIBUTION WIDTH 17.8 % (11.6-16.5); WHITE BLOOD COUNT 7.6 X10^3/uL (3.6-10.0)
[2021-11-11 05:28] LABS: ALANINE AMINOTRANSFERASE 30 Units/L (12-78); ALBUMIN 2.6 g/dL (3.4-5.0); ALKALINE PHOSPHATASE 82 Units/L (46-116); ASPARTATE AMINO TRANSFERASE 27 Units/L (15-37); BLOOD UREA NITROGEN 24 mg/dL (7-18); CALCIUM 10.5 mg/dL (8.5-10.1); CARBON DIOXIDE 38.1 mmol/L (21-32); CHLORIDE 102 mmol/L (98-107); COR CA(FOR HYPOALB) 11.6 mg/dL (8.5-10.1); COR NA(FOR HYPERGLY) 145 mmol/L (136-145); CREATININE 0.95 mg/dL (0.55-1.02); SODIUM 144 mmol/L (136-145); TOTAL PROTEIN 5.9 g/dL (6.4-8.2); eGFR NON BLACK RACES 60 (>60)
[2021-11-11] MEDS: ELIQUIS PO SCH ×2 (08:43→20:13)
[2021-11-11] MEDS: COREG TAB 6.25 MG PO SCH ×2 (08:43→20:13)
[2021-11-11] MEDS: K-DUR TAB 20 MEQ PO SCH ×2 (08:44→20:12)
[2021-11-11] MEDS: LASIX IVP SCH ×2 (08:44→20:13)
[2021-11-11] MEDS: ENTRESTO 24/26 MG TAB PO SCH ×2 (08:44→20:12)
[2021-11-11] MEDS: NexIUM PO SCH (08:44)
[2021-11-11] MEDS: INVanz INJ 1 GRAM VIAL 1 G in NS 100 ML IV 100 ML IV SCH (17:11)
[2021-11-11] MEDS: ZOCOR TAB 20 MG PO SCH (20:12)
[2021-11-11] MEDS: MILK OF MAGNESIA PO SCH (20:12)
[2021-11-11] MEDS: COLACE CAP 100 MG PO SCH (20:12)
[2021-11-11] MEDS: SNACK - Diabetic Appropriate PO SCH (20:13)
[2021-11-12 05:57] LABS: BASOPHILS # (AUTO) 0.1 X10^3/uL (0.0-0.1); BASOPHILS % (AUTO) 0.9 % (0.2-1.0); EOSINOPHILS # (AUTO) 0.3 x10^3/uL (0.0-0.2); EOSINOPHILS % (AUTO) 4.5 % (0.9-2.9); HEMATOCRIT 27.6 % (36.0-47.0); LYMPHOCYTES # (AUTO) 1.4 X10^3/uL (1.3-2.9); LYMPHOCYTES % (AUTO) 20.8 % (21.0-51.0); MEAN CORPUSCULAR HGB CONC 32.6 g/dL (33.0-35.0); MEAN CORPUSCULAR VOLUME 79.5 fL (80.0-100.0); MEAN PLATELET VOLUME 7.6 fL (7.4-11.0); MONOCYTES # (AUTO) 0.5 x10^3/uL (0.3-0.8); MONOCYTES % (AUTO) 7.2 % (0.0-13.0); NEUTROPHILS # (AUTO) 4.4 x10^3/uL (2.2-4.8); NEUTROPHILS % (AUTO) 66.6 % (42.0-75.0); RED BLOOD COUNT 3.46 X10^6/uL (3.5-5.4); RED CELL DISTRIBUTION WIDTH 17.6 % (11.6-16.5); WHITE BLOOD COUNT 6.6 X10^3/uL (3.6-10.0)
[2021-11-12 06:14] LABS: ALANINE AMINOTRANSFERASE 34 Units/L (12-78); ALBUMIN 2.6 g/dL (3.4-5.0); ALKALINE PHOSPHATASE 88 Units/L (46-116); ASPARTATE AMINO TRANSFERASE 31 Units/L (15-37); BLOOD UREA NITROGEN 22 mg/dL (7-18); CALCIUM 10.7 mg/dL (8.5-10.1); CARBON DIOXIDE 38.2 mmol/L (21-32); CHLORIDE 103 mmol/L (98-107); COR CA(FOR HYPOALB) 11.8 mg/dL (8.5-10.1); COR NA(FOR HYPERGLY) 143 mmol/L (136-145); CREATININE 0.93 mg/dL (0.55-1.02); SODIUM 142 mmol/L (136-145); TOTAL PROTEIN 6.1 g/dL (6.4-8.2); eGFR NON BLACK RACES > 60 (>60)
[2021-11-12] MEDS: K-DUR TAB 20 MEQ PO SCH ×2 (08:05→21:13)
[2021-11-12] MEDS: ENTRESTO 24/26 MG TAB PO SCH ×2 (08:05→21:12)
[2021-11-12] MEDS: COREG TAB 6.25 MG PO SCH ×2 (08:06→21:13)
[2021-11-12] MEDS: ELIQUIS PO SCH ×2 (08:06→21:14)
[2021-11-12] MEDS: NexIUM PO SCH (08:06)
[2021-11-12] MEDS: LASIX IVP SCH ×2 (08:07→21:13)
[2021-11-12] MEDS: NovoLIN R (or HumuLIN R) SUBCUT PRN (12:30)
[2021-11-12] MEDS ORDERED: NYSTATIN POWDER TOP PRN (16:38)
[2021-11-12] MEDS ORDERED: NS 500 ML IV 500 ML IV ONE (17:35)
[2021-11-12] MEDS: INVanz INJ 1 GRAM VIAL 1 G in NS 100 ML IV 100 ML IV SCH (18:00)
[2021-11-12] MEDS: SNACK - Diabetic Appropriate PO SCH (20:12)
[2021-11-12] MEDS: COLACE CAP 100 MG PO SCH (21:13)
[2021-11-12] MEDS: ZOCOR TAB 20 MG PO SCH (21:13)
[2021-11-12] MEDS: MILK OF MAGNESIA PO SCH (21:14)
[2021-11-13 05:04] LABS: BASOPHILS # (AUTO) 0.1 X10^3/uL (0.0-0.1); BASOPHILS % (AUTO) 0.8 % (0.2-1.0); EOSINOPHILS # (AUTO) 0.3 x10^3/uL (0.0-0.2); EOSINOPHILS % (AUTO) 3.2 % (0.9-2.9); HEMATOCRIT 27.8 % (36.0-47.0); LYMPHOCYTES # (AUTO) 1.4 X10^3/uL (1.3-2.9); LYMPHOCYTES % (AUTO) 17.9 % (21.0-51.0); MEAN CORPUSCULAR HEMOGLOBIN 25.7 pg (27.0-34.0); MEAN CORPUSCULAR HGB CONC 32.3 g/dL (33.0-35.0); MEAN CORPUSCULAR VOLUME 79.6 fL (80.0-100.0); MEAN PLATELET VOLUME 7.7 fL (7.4-11.0); MONOCYTES # (AUTO) 0.6 x10^3/uL (0.3-0.8); MONOCYTES % (AUTO) 7.2 % (0.0-13.0); NEUTROPHILS # (AUTO) 5.7 x10^3/uL (2.2-4.8); NEUTROPHILS % (AUTO) 70.9 % (42.0-75.0); RED BLOOD COUNT 3.49 X10^6/uL (3.5-5.4); RED CELL DISTRIBUTION WIDTH 17.9 % (11.6-16.5); WHITE BLOOD COUNT 8.1 X10^3/uL (3.6-10.0)
[2021-11-13 05:11] LABS: ALBUMIN 2.7 g/dL (3.4-5.0); CALCIUM 10.4 mg/dL (8.5-10.1); CARBON DIOXIDE 38.6 mmol/L (21-32); COR CA(FOR HYPOALB) 11.4 mg/dL (8.5-10.1); CREATININE 1.12 mg/dL (0.55-1.02)
[2021-11-13] MEDS: LASIX IVP SCH ×2 (08:16→21:16)
[2021-11-13] MEDS: COREG TAB 6.25 MG PO SCH ×2 (08:17→21:15)
[2021-11-13] MEDS: ENTRESTO 24/26 MG TAB PO SCH ×2 (08:17→21:15)
[2021-11-13] MEDS: ELIQUIS PO SCH ×2 (08:17→21:15)
[2021-11-13] MEDS: NexIUM PO SCH (08:18)
[2021-11-13] MEDS: K-DUR TAB 20 MEQ PO SCH ×2 (08:18→21:16)
[2021-11-13] MEDS: NovoLIN R (or HumuLIN R) SUBCUT PRN (11:40)
[2021-11-13] MEDS: INVanz INJ 1 GRAM VIAL 1 G in NS 100 ML IV 100 ML IV SCH (17:25)
[2021-11-13] MEDS ORDERED: POTASSIUM CHL 40 MEQ/NS 0.45% 500 ML IV PRN (19:53)
[2021-11-13] MEDS ORDERED: KLOR-CON PO PRN (19:53)
[2021-11-13] MEDS ORDERED: K-DUR TAB 20 MEQ PO PRN (19:53)
[2021-11-13] MEDS ORDERED: MAGNESIUM SULFATE 1 GRAM/100 mL PREMIX 1 G/100 ML BAG IV PRN (19:53)
[2021-11-13] MEDS ORDERED: K-RIDER 10 MEQ/NS 100 ML 10 MEQ/100 ML BAG IV PRN (19:53)
[2021-11-13] MEDS ORDERED: POTASSIUM CHL 60 MEQ/NS 0.45% 500 ML IV PRN (19:53)
[2021-11-13] MEDS ORDERED: POTASSIUM CHLORIDE LIQ 20 MEQ UDC PO PRN (19:53)
[2021-11-13] MEDS ORDERED: MICRO K EXTEN CAP 10 MEQ PO PRN (19:53)
[2021-11-13] MEDS: COLACE CAP 100 MG PO SCH (21:15)
[2021-11-13] MEDS: ZOCOR TAB 20 MG PO SCH (21:16)
[2021-11-13] MEDS: MILK OF MAGNESIA PO SCH (21:39)
[2021-11-13] MEDS: SNACK - Diabetic Appropriate PO SCH (21:40)
[2021-11-14 06:14] LABS: BASOPHILS # (AUTO) 0.1 X10^3/uL (0.0-0.1); BASOPHILS % (AUTO) 0.9 % (0.2-1.0); EOSINOPHILS # (AUTO) 0.3 x10^3/uL (0.0-0.2); EOSINOPHILS % (AUTO) 3.3 % (0.9-2.9); HEMATOCRIT 28.3 % (36.0-47.0); HEMOGLOBIN 9.3 g/dL (12.0-16.0); LYMPHOCYTES # (AUTO) 1.6 X10^3/uL (1.3-2.9); LYMPHOCYTES % (AUTO) 20.5 % (21.0-51.0); MEAN CORPUSCULAR HEMOGLOBIN 26.1 pg (27.0-34.0); MEAN CORPUSCULAR HGB CONC 32.8 g/dL (33.0-35.0); MEAN CORPUSCULAR VOLUME 79.7 fL (80.0-100.0); MEAN PLATELET VOLUME 7.7 fL (7.4-11.0); MONOCYTES # (AUTO) 0.6 x10^3/uL (0.3-0.8); MONOCYTES % (AUTO) 7.7 % (0.0-13.0); NEUTROPHILS # (AUTO) 5.4 x10^3/uL (2.2-4.8); NEUTROPHILS % (AUTO) 67.6 % (42.0-75.0); RED BLOOD COUNT 3.55 X10^6/uL (3.5-5.4); RED CELL DISTRIBUTION WIDTH 17.9 % (11.6-16.5)
[2021-11-14 06:18] LABS: ALANINE AMINOTRANSFERASE 33 Units/L (12-78); ALBUMIN 2.7 g/dL (3.4-5.0); ALKALINE PHOSPHATASE 91 Units/L (46-116); ASPARTATE AMINO TRANSFERASE 21 Units/L (15-37); BLOOD UREA NITROGEN 23 mg/dL (7-18); CALCIUM 10.3 mg/dL (8.5-10.1); CARBON DIOXIDE 36.6 mmol/L (21-32); CHLORIDE 105 mmol/L (98-107); COR CA(FOR HYPOALB) 11.3 mg/dL (8.5-10.1); COR NA(FOR HYPERGLY) 143 mmol/L (136-145); CREATININE 0.97 mg/dL (0.55-1.02); SODIUM 143 mmol/L (136-145); TOTAL PROTEIN 6.2 g/dL (6.4-8.2); eGFR NON BLACK RACES 58 (>60)
[2021-11-14] MEDS: ELIQUIS PO SCH ×2 (08:09→21:16)
[2021-11-14] MEDS: LASIX IVP SCH ×2 (08:09→21:16)
[2021-11-14] MEDS: COREG TAB 6.25 MG PO SCH ×2 (08:09→21:16)
[2021-11-14] MEDS: ENTRESTO 24/26 MG TAB PO SCH ×2 (08:10→21:16)
[2021-11-14] MEDS: NexIUM PO SCH (08:10)
[2021-11-14] MEDS: K-DUR TAB 20 MEQ PO SCH ×2 (08:10→21:16)
[2021-11-14] MEDS: NovoLIN R (or HumuLIN R) SUBCUT PRN (16:10)
[2021-11-14] MEDS: INVanz INJ 1 GRAM VIAL 1 G in NS 100 ML IV 100 ML IV SCH (18:13)
[2021-11-14] MEDS: SNACK - Diabetic Appropriate PO SCH (21:15)
[2021-11-14] MEDS: COLACE CAP 100 MG PO SCH (21:16)
[2021-11-14] MEDS: MILK OF MAGNESIA PO SCH (21:16)
[2021-11-14] MEDS: ZOCOR TAB 20 MG PO SCH (21:17)
[2021-11-15 06:22] LABS: BASOPHILS # (AUTO) 0.2 X10^3/uL (0.0-0.1); EOSINOPHILS # (AUTO) 0.3 x10^3/uL (0.0-0.2); EOSINOPHILS % (AUTO) 3.8 % (0.9-2.9); HEMATOCRIT 28.6 % (36.0-47.0); HEMOGLOBIN 9.4 g/dL (12.0-16.0); LYMPHOCYTES # (AUTO) 1.3 X10^3/uL (1.3-2.9); LYMPHOCYTES % (AUTO) 16.8 % (21.0-51.0); MEAN CORPUSCULAR HEMOGLOBIN 26.1 pg (27.0-34.0); MEAN CORPUSCULAR HGB CONC 32.7 g/dL (33.0-35.0); MEAN CORPUSCULAR VOLUME 79.9 fL (80.0-100.0); MEAN PLATELET VOLUME 7.8 fL (7.4-11.0); MONOCYTES # (AUTO) 0.6 x10^3/uL (0.3-0.8); MONOCYTES % (AUTO) 7.2 % (0.0-13.0); NEUTROPHILS # (AUTO) 5.4 x10^3/uL (2.2-4.8); NEUTROPHILS % (AUTO) 69.2 % (42.0-75.0); RED BLOOD COUNT 3.58 X10^6/uL (3.5-5.4); RED CELL DISTRIBUTION WIDTH 16.9 % (11.6-16.5); WHITE BLOOD COUNT 7.7 X10^3/uL (3.6-10.0)
[2021-11-15 06:25] LABS: ALANINE AMINOTRANSFERASE 30 Units/L (12-78); ALBUMIN 2.7 g/dL (3.4-5.0); ALKALINE PHOSPHATASE 89 Units/L (46-116); ASPARTATE AMINO TRANSFERASE 22 Units/L (15-37); BLOOD UREA NITROGEN 25 mg/dL (7-18); CALCIUM 10.2 mg/dL (8.5-10.1); CARBON DIOXIDE 33.8 mmol/L (21-32); CHLORIDE 102 mmol/L (98-107); COR CA(FOR HYPOALB) 11.2 mg/dL (8.5-10.1); COR NA(FOR HYPERGLY) 141 mmol/L (136-145); CREATININE 1.04 mg/dL (0.55-1.02); SODIUM 141 mmol/L (136-145); TOTAL PROTEIN 6.1 g/dL (6.4-8.2); eGFR NON BLACK RACES 54 (>60)
[2021-11-15] MEDS ORDERED: INVanz INJ 1 GRAM VIAL IM SCH (09:00)
[2021-11-15] MEDS: K-DUR TAB 20 MEQ PO SCH (09:59)
[2021-11-15] MEDS: ELIQUIS PO SCH (09:59)
[2021-11-15] MEDS: LASIX IVP SCH (10:00)
[2021-11-15] MEDS: COREG TAB 6.25 MG PO SCH (10:00)
[2021-11-15] MEDS: NexIUM PO SCH (10:00)
[2021-11-15] MEDS: ENTRESTO 24/26 MG TAB PO SCH (10:01)
[2021-11-15 12:08] VITALS: BP 105/55
[2021-11-16] MEDS ORDERED: LASIX PO SCH (11:01)
== END 2021-11-15 13:00 | disposition home health service (06) | DRG 690 ==
LOC: ER 15:35 → MED/SURG 15:35
PROVIDERS: ADMIT Internal Medicine; ATTEND Internal Medicine
DX: I11.0 Hypertensive heart disease with heart failure; B96.29 Other Escherichia coli [E. coli] as the cause of diseases classified elsewhere; Z87.442 Personal history of urinary calculi; I48.91 Unspecified atrial fibrillation; R60.0 Localized edema; R26.89 Other abnormalities of gait and mobility; E11.65 Type 2 diabetes mellitus with hyperglycemia; Z79.01 Long term (current) use of anticoagulants; I50.9 Heart failure, unspecified; M25.562 Pain in left knee; I25.10 Atherosclerotic heart disease of native coronary artery without angina pectoris; R41.0 Disorientation, unspecified; Z95.0 Presence of cardiac pacemaker; M25.572 Pain in left ankle and joints of left foot; N39.0 Urinary tract infection, site not specified; K92.2 Gastrointestinal hemorrhage, unspecified; Z20.822 Contact with and (suspected) exposure to COVID-19; D64.9 Anemia, unspecified; K64.8 Other hemorrhoids; Z66 Do not resuscitate; R53.83 Other fatigue; R06.02 Shortness of breath; Z79.4 Long term (current) use of insulin; M79.672 Pain in left foot; R31.9 Hematuria, unspecified; R62.7 Adult failure to thrive; M54.59 Other low back pain; Z95.1 Presence of aortocoronary bypass graft

== ENCOUNTER 2022-03-03 13:18 | Inpatient (IN) ==
[2022-03-03] MEDS ORDERED: NS 500 ML IV 500 ML IV ONE (15:16)
[2022-03-03] MEDS: PROTONIX INJ 40 MG VIAL IVP SCH (15:30)
--- NOTE | 2022-03-03 15:38 | DR.H&P ---
H&P - History & Physical for Day of: H&P Date: 03/03/22 - Chief Complaint Chief Complaint: blood in stool, weakness, sob - History of Present Illness History of Present Illness: PT IS 82 WF, DIRECT ADMIT WITH SYMPTOMATIC ANEMIA AND CO BLOOD IN HER STOOL. PT HAS PMH OF CHF AND CHCF ANTICOAGULANT THERAPY FOR AFIB. PT HAS HX OF ANEMIA WELL. PT REPORTS SHE HAS BEEN PASSING BRIGHT RED BLOOD IN STOOL FOR ONE WEEK. PT HAS BEEN TAKING LASIX BID DIRECTED WITH INCREASED SOB AND LEG SWELLING. - Past Medical History Past Medical History: Anemia, Arthritis, CHF, Coronary Artery Disease, Diabetes, Hypertension, Kidney Stones Additional Medical History: AFIB - Past Surgical History Surgical History: Appendectomy, Cholecystectomy, Hysterectomy, Ortho Surgery - Family History Family Medical History: Diabetes Mellitus, Cancer, Sudden Cardiac , Hypertension - Social History Does patient currently use any type of tobacco product: No Have you used tobacco products in the last 12 months: No Type of Tobacco Use: None Does any household member use tobacco: No Alcohol Use: None Drug Use: None - Medications Home Medications: amoxicillin Allergy (Verified 05/22/17 11:41) - Review of Systems Constitutional: Weakness Eyes: No Symptoms Reported ENT: No Symptoms Reported Respiratory: SOB with Excertion Cardiovascular: Edema Gastrointestinal: Melena Genitourinary: No Symptoms Reported Musculoskeletal: Back Pain, Leg Pain Skin: No Symptoms Reported Neurological: Weakness - Physical Exam Vital Signs: Temperature 98.1 F Pulse Rate [] 99 Respiratory Rate 17 Blood Pressure [Left Arm] 107/54 O2 Sat by Pulse Oximetry 95 Oriented: Normal Eyes: Normal Ear: Normal Nose: Normal Throat: Normal Respiratory: RLL Diminished, LLL Diminished Cardiovascular: Irregular, Edema Auscultation: Bowel Sounds: Normal Palpation: Normal Tenderness: Normal Skin: Decreased Turgur Musculoskeletal: Right, Left, Leg, Swelling, Tender Psychiatric: Normal Mood Description: Calm Speech Pattern: Clear, Appropriate - Assessment/Plan (1) Lower GI bleed Status: Acute Plan: ADMIT, TYPE AND SCREEN, TRANSFUSE 2 UNIT PRBC. SERIAL OCCULT STOOLS, PROTONIX IV BID, STRICT I&OS. IV LASIX, EKG ON ADMISSION, SUPPLEMENTAL O2. VERIFY HOME MEDICATIONS. 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 (3) CHF (congestive heart failure) Qualifiers: Heart failure chronicity: acute on chronic Status: Chronic (4) HTN (hypertension) Status: Chronic (5) Diabetes Qualifiers: Diabetes mellitus type: type 2 Diabetes mellitus moth exterminator insulin use: with moth exterminator use Diabetes mellitus complication status: with hyperglycemia Qualified Code(s): E11.65 - Type 2 diabetes mellitus with hyperglycemia; Z79.4 - terminal makeup operator (current) use of insulin Status: Chronic (6) A-fib Status: Chronic - Allergies Allergies/Adverse Reactions: Allergies Allergy/AdvReac Type Severity Reaction Status Date / Time amoxicillin Allergy Verified 05/22/17 11:41
--- NOTE | 2022-03-03 16:01 | RAD ---
CHEST, 1 VIEWHISTORY:SOB, CHFStudy: Single view of the chest.Comparison:NoneFindings:Cardiomegaly and pulmonary vascular congestion. No focal consolidations, pleural effusions or pneumothorax. Osseous structures demonstrate no acute abnormality.IMPRESSION:1.Cardiomegaly and pulmonary vascular congestion.Electronically signed by: TERRENCE WILD (Mar 03, 2022 15:59:37)
[2022-03-03 16:04] LABS: ALANINE AMINOTRANSFERASE 17 Units/L (12-78); ALKALINE PHOSPHATASE 87 Units/L (46-116); ASPARTATE AMINO TRANSFERASE 14 Units/L (15-37); BLOOD UREA NITROGEN 30 mg/dL (7-18); CALCIUM 9.3 mg/dL (8.5-10.1); CARBON DIOXIDE 34.3 mmol/L (21-32); CHLORIDE 104 mmol/L (98-107); COR CA(FOR HYPOALB) 10.1 mg/dL (8.5-10.1); COR NA(FOR HYPERGLY) 145 mmol/L (136-145); CREATININE 1.44 mg/dL (0.55-1.02); SODIUM 142 mmol/L (136-145); eGFR NON BLACK RACES 37 (>60)
[2022-03-03] MEDS: K-DUR TAB 20 MEQ PO SCH (16:12)
[2022-03-03] MEDS: LASIX IVP SCH (16:12)
[2022-03-03 16:48] LABS: IRON 15 ug/dL (50-175)
[2022-03-03] MEDS ORDERED: NS 250 ML IV 250 ML IV ONE (18:04)
[2022-03-03] MEDS: ZOCOR TAB 20 MG PO SCH (21:25)
[2022-03-03] MEDS: COREG TAB 6.25 MG PO SCH (21:25)
[2022-03-04] MEDS: PROTONIX INJ 40 MG VIAL IVP SCH ×3 (00:39→21:06)
[2022-03-04] MEDS ORDERED: LASIX IVP ONE (01:40)
[2022-03-04 02:28] LABS: BASOPHILS # (AUTO) 0.2 X10^3/uL (0.0-0.1); BASOPHILS % (AUTO) 2.8 % (0.2-1.0); EOSINOPHILS # (AUTO) 0.3 x10^3/uL (0.0-0.2); EOSINOPHILS % (AUTO) 4.4 % (0.9-2.9); HEMATOCRIT 20.5 % (36.0-47.0); LYMPHOCYTES # (AUTO) 1.5 X10^3/uL (1.3-2.9); LYMPHOCYTES % (AUTO) 20.4 % (21.0-51.0); MEAN CORPUSCULAR HEMOGLOBIN 25.6 pg (27.0-34.0); MEAN CORPUSCULAR HGB CONC 33.1 g/dL (33.0-35.0); MEAN CORPUSCULAR VOLUME 77.4 fL (80.0-100.0); MEAN PLATELET VOLUME 7.9 fL (7.4-11.0); MONOCYTES # (AUTO) 0.6 x10^3/uL (0.3-0.8); MONOCYTES % (AUTO) 7.7 % (0.0-13.0); NEUTROPHILS # (AUTO) 4.8 x10^3/uL (2.2-4.8); NEUTROPHILS % (AUTO) 64.7 % (42.0-75.0); RED BLOOD COUNT 2.65 X10^6/uL (3.5-5.4); RED CELL DISTRIBUTION WIDTH 17.9 % (11.6-16.5); WHITE BLOOD COUNT 7.4 X10^3/uL (3.6-10.0)
[2022-03-04 02:38] LABS: HEMOGLOBIN 6.8 g/dL (12.0-16.0)
[2022-03-04 02:54] LABS: ALBUMIN 2.8 g/dL (3.4-5.0); CALCIUM 9.1 mg/dL (8.5-10.1); CARBON DIOXIDE 36.2 mmol/L (21-32); COR CA(FOR HYPOALB) 10.1 mg/dL (8.5-10.1); CREATININE 1.34 mg/dL (0.55-1.02); TOTAL PROTEIN 5.7 g/dL (6.4-8.2)
[2022-03-04] MEDS ORDERED: NS 100 ML IV 100 ML ONE (03:27)
[2022-03-04 07:38] LABS: HEMATOCRIT 23.9 % (36.0-47.0)
[2022-03-04 07:44] LABS: HEMOGLOBIN 7.9 g/dL (12.0-16.0)
[2022-03-04 08:13] VITALS: BMI 38.9
[2022-03-04] MEDS: LASIX IVP SCH ×2 (08:19→17:06)
[2022-03-04] MEDS: K-DUR TAB 20 MEQ PO SCH (08:20)
[2022-03-04] MEDS: COREG TAB 6.25 MG PO SCH ×2 (08:20→21:06)
[2022-03-04 11:54] LABS: BILIRUBIN,URINE NEGATIVE (NEGATIVE); BLOOD/HEMOGLOBIN,URINE 2+ (NEGATIVE); GLUCOSE, URINE NEGATIVE (NEGATIVE); KETONES,URINE NEGATIVE (NEGATIVE); LEUKOCYTE ESTERASE ,URINE NEGATIVE (NEGATIVE); NITRITES,URINE NEGATIVE (NEGATIVE); PROTEIN,URINE NEGATIVE (NEGATIVE); UROBILINOGEN,URINE NORMAL (NORMAL)
[2022-03-04 12:05] LABS: APPEARANCE,URINE CLEAR (CLEAR); COLOR,URINE PALE YELLOW (YELLOW)
[2022-03-04 12:09] LABS: BACTERIA,URINE TRACE /HPF (NEGATIVE); SQUAMOUS EPITHELIAL CELL,UR RARE /HPF (NEGATIVE)
[2022-03-04 13:56] LABS: BASOPHILS % (AUTO) 0.7 % (0.2-1.0); EOSINOPHILS # (AUTO) 0.3 x10^3/uL (0.0-0.2); EOSINOPHILS % (AUTO) 4.1 % (0.9-2.9); HEMOGLOBIN 7.3 g/dL (12.0-16.0); LYMPHOCYTES # (AUTO) 1.6 X10^3/uL (1.3-2.9); LYMPHOCYTES % (AUTO) 21.7 % (21.0-51.0); MEAN CORPUSCULAR HEMOGLOBIN 26.2 pg (27.0-34.0); MEAN CORPUSCULAR HGB CONC 33.2 g/dL (33.0-35.0); MEAN CORPUSCULAR VOLUME 78.7 fL (80.0-100.0); MEAN PLATELET VOLUME 7.7 fL (7.4-11.0); MONOCYTES # (AUTO) 0.6 x10^3/uL (0.3-0.8); NEUTROPHILS # (AUTO) 4.6 x10^3/uL (2.2-4.8); NEUTROPHILS % (AUTO) 64.5 % (42.0-75.0); RED BLOOD COUNT 2.79 X10^6/uL (3.5-5.4); WHITE BLOOD COUNT 7.2 X10^3/uL (3.6-10.0)
--- NOTE | 2022-03-04 14:35 | RAD ---
HISTORYCHF SOBSTUDYChest PA and lateral viewsCOMPARISONNovember 2021FINDINGSModerate stable cardiomegaly with pacemaker. The lungs are clear of infiltrates. There is no definite pneumonia or pulmonary edema or pleural fluid. Prominence of the central pulmonary vascularity may be related to the nonstandard technical factors.IMPRESSIONCardiomegaly. No acute findings.Electronically signed by: DEMARCUS WHELAN (Mar 04, 2022 14:33:33)
[2022-03-04 14:43] LABS: INR 1.22 (0.8-1.3)
[2022-03-04] MEDS: HEMOCYTE-PLUS PO SCH (18:08)
[2022-03-04] MEDS: ZOCOR TAB 20 MG PO SCH (21:08)
[2022-03-05 05:51] LABS: BASOPHILS # (AUTO) 0.1 X10^3/uL (0.0-0.1); EOSINOPHILS # (AUTO) 0.3 x10^3/uL (0.0-0.2); EOSINOPHILS % (AUTO) 3.9 % (0.9-2.9); HEMATOCRIT 23.6 % (36.0-47.0); HEMOGLOBIN 7.8 g/dL (12.0-16.0); LYMPHOCYTES # (AUTO) 1.5 X10^3/uL (1.3-2.9); LYMPHOCYTES % (AUTO) 18.8 % (21.0-51.0); MEAN CORPUSCULAR VOLUME 78.8 fL (80.0-100.0); MEAN PLATELET VOLUME 8.2 fL (7.4-11.0); MONOCYTES # (AUTO) 0.7 x10^3/uL (0.3-0.8); MONOCYTES % (AUTO) 8.3 % (0.0-13.0); NEUTROPHILS # (AUTO) 5.4 x10^3/uL (2.2-4.8); RED BLOOD COUNT 2.99 X10^6/uL (3.5-5.4); RED CELL DISTRIBUTION WIDTH 18.4 % (11.6-16.5)
[2022-03-05] MEDS ORDERED: NS 1,000 ML IV 1,000 ML ONE (08:19)
[2022-03-05] MEDS ORDERED: DIPRIVAN VIAL IV ONE (09:14)
[2022-03-05] MEDS: LASIX IVP SCH ×2 (09:33→16:21)
[2022-03-05] MEDS: HEMOCYTE-PLUS PO SCH (09:34)
[2022-03-05] MEDS: K-DUR TAB 20 MEQ PO SCH (09:34)
[2022-03-05] MEDS: PROTONIX INJ 40 MG VIAL IVP SCH ×2 (09:34→21:09)
[2022-03-05] MEDS: COREG TAB 6.25 MG PO SCH ×2 (09:34→21:07)
[2022-03-05] MEDS: ENTRESTO 24/26 MG TAB PO SCH (21:08)
[2022-03-05] MEDS: ZOCOR TAB 20 MG PO SCH (21:08)
[2022-03-05] MEDS: TYLENOL 325 MG TAB PO PRN (23:32)
[2022-03-06 05:39] LABS: BASOPHILS # (AUTO) 0.1 X10^3/uL (0.0-0.1); BASOPHILS % (AUTO) 0.9 % (0.2-1.0); EOSINOPHILS # (AUTO) 0.3 x10^3/uL (0.0-0.2); EOSINOPHILS % (AUTO) 3.9 % (0.9-2.9); HEMATOCRIT 23.7 % (36.0-47.0); HEMOGLOBIN 7.7 g/dL (12.0-16.0); LYMPHOCYTES # (AUTO) 1.3 X10^3/uL (1.3-2.9); LYMPHOCYTES % (AUTO) 16.6 % (21.0-51.0); MEAN CORPUSCULAR HEMOGLOBIN 25.7 pg (27.0-34.0); MEAN CORPUSCULAR HGB CONC 32.7 g/dL (33.0-35.0); MEAN CORPUSCULAR VOLUME 78.6 fL (80.0-100.0); MONOCYTES # (AUTO) 0.6 x10^3/uL (0.3-0.8); MONOCYTES % (AUTO) 8.3 % (0.0-13.0); NEUTROPHILS # (AUTO) 5.4 x10^3/uL (2.2-4.8); NEUTROPHILS % (AUTO) 70.3 % (42.0-75.0); RED BLOOD COUNT 3.01 X10^6/uL (3.5-5.4); RED CELL DISTRIBUTION WIDTH 18.7 % (11.6-16.5); WHITE BLOOD COUNT 7.7 X10^3/uL (3.6-10.0)
[2022-03-06 06:03] LABS: ALANINE AMINOTRANSFERASE 15 Units/L (12-78); ALBUMIN 2.8 g/dL (3.4-5.0); ALKALINE PHOSPHATASE 80 Units/L (46-116); ASPARTATE AMINO TRANSFERASE 13 Units/L (15-37); BLOOD UREA NITROGEN 20 mg/dL (7-18); CALCIUM 9.3 mg/dL (8.5-10.1); CARBON DIOXIDE 37.1 mmol/L (21-32); CHLORIDE 105 mmol/L (98-107); COR CA(FOR HYPOALB) 10.3 mg/dL (8.5-10.1); COR NA(FOR HYPERGLY) 144 mmol/L (136-145); CREATININE 1.02 mg/dL (0.55-1.02); SODIUM 143 mmol/L (136-145); TOTAL PROTEIN 5.7 g/dL (6.4-8.2); eGFR NON BLACK RACES 55 (>60)
[2022-03-06] MEDS ORDERED: NS 500 ML IV 500 ML IV ONE (08:27)
[2022-03-06] MEDS: PROTONIX INJ 40 MG VIAL IVP SCH ×2 (08:43→20:01)
[2022-03-06] MEDS: K-DUR TAB 20 MEQ PO SCH (08:44)
[2022-03-06] MEDS: LASIX IVP SCH ×2 (08:44→16:56)
[2022-03-06] MEDS: ENTRESTO 24/26 MG TAB PO SCH ×2 (08:44→20:00)
[2022-03-06] MEDS: COREG TAB 6.25 MG PO SCH ×2 (08:44→20:00)
[2022-03-06] MEDS: HEMOCYTE-PLUS PO SCH (08:44)
[2022-03-06] MEDS ORDERED: ROCEPHIN 1 GRAM IV PREMIX 1 G/50 ML IV.SOLN. IV SCH (10:34)
[2022-03-06] MEDS ORDERED: ROCEPHIN VIAL 1 GRAM 1 G in NS 100 ML IV 100 ML IV SCH (10:45)
[2022-03-06] MEDS: INVanz INJ 1 GRAM VIAL 1 G in NS 100 ML IV 100 ML IV SCH (13:56)
[2022-03-06 14:35] LABS: HEMATOCRIT 27.1 % (36.0-47.0)
--- NOTE | 2022-03-06 16:27 | RAD ---
HISTORYCHF CHF, CAD, DM, HTN, ORTHO, HYST, PACEMAKERSTUDYCHEST, 1 [id number]/2022FINDINGSThe trachea is midline. There is a left-sided pacemaker with 2 leads. There is mild cardiomegaly. No evidence of pulmonary edema, no pleural effusions or pneumothoraxMild central congestion.IMPRESSIONMild central congestion without krysten pulmonary edema. No effusions or alveolar radiopacityElectronically signed by: Kerrie Yin (Mar 06, 2022 16:25:40)
--- NOTE | 2022-03-06 18:27 | PCM.PROG ---
Progress Note - Progress Note for Day of Date of Exam: 03/06/22 - Subjective Subjective: The patient is an 82-year-old white female who was admitted with symptomatic anemia, lower GI bleed, and congestive heart failure exacerbation. Since admission, the patient has received 3 units of packed red blood cells and has been on Protonix 40 mg two times a day. She does have a history of anemia, as well as diabetes mellitus, and congestive heart failure. The patient has been on gentle IV diuresis with Lasix 40 mg two times a day also. We ordered a Tapia catheter for strict I&Os and she has had good urine output. This morning she had about 2,500 mL out since yesterday. The patient has had improving shortness of breath, states it has been better since she received blood marshall sfusion. The patient does have a history of iron deficiency anemia, as well as gastritis. She is NPO for an EGD per Dr. Marrero today and will also continue with IV iron infusion. The patient denies any chest pain. She has not had any shortness of breath at rest. Her repeat chest x-ray showed continued cardiomegaly. Blood pressure has been stable at 118/77. She was on Entreso at home also for management of her congestive heart failure due to her being anemic and hypotensive. Since improvement in blood pressure we resumed Entresto and she has tolerated it well. HGB 7.7 this morning. Plan to transfuse another unit of PRBCs. Pt does report improving shortness of breath since admission. Pt had EGD on 03/05 per Danilo. - Past Medical Family Social History Past Med/Fam/Surg Hx: No changes since H&P Allergies: Allergies amoxicillin Allergy (Verified 05/22/17 11:41) - Review of Systems ROS: No change since H&P - Vital Signs and I&O's Vital Signs: Temperature 98.0 F Pulse Rate [Left Radial] 56 Respiratory Rate 20 Blood Pressure [Left Arm] 127/60 O2 Sat by Pulse Oximetry 94 Intake and Output: Intake & Output 03/04/22 03/05/22 03/06/22 03/07/22 11:59 11:59 11:59 11:59 Intake Total 2540 / 2540 1851 / 1851 660 / 660 1264 / 1264 Output Total 2550 / 2550 2800 / 2800 1900 / 1900 Balance 2540 / 2540 -699 / -699 -2140 / -2140 -636 / -636 - Physical Exam Oriented: Normal Eyes: Normal Ear: Normal Nose: Normal Throat: Normal Cardiovascular: Irregular, Edema Auscultation: Bowel Sounds: Normal Tenderness: Normal Skin: Decreased Turgur Musculoskeletal: Right, Left, Leg, Swelling, Tender Psychiatric: Normal Mood Description: Calm Speech Pattern: Clear, Appropriate - Laboratory and Diagnostics Result Diagrams: 03/06/22 14:18 03/06/22 05:07 Labs: 03/04/22 11:08 Urine,Catheterized Urine Culture - Final Escherichia Coli Laboratory WBC 7.7 X10^3/uL (3.6-10.0) 03/06/22 05:07 RBC 3.01 X10^6/uL (3.5-5.4) L 03/06/22 05:07 Hgb 9.0 g/dL (12.0-16.0) L 03/06/22 14:18 Hct 27.1 % (36.0-47.0) L 03/06/22 14:18 MCV 78.6 fL (80.0-100.0) L 03/06/22 05:07 MCH 25.7 pg (27.0-34.0) L 03/06/22 05:07 MCHC 32.7 g/dL (33.0-35.0) L 03/06/22 05:07 RDW 18.7 % (11.6-16.5) H 03/06/22 05:07 Plt Count 172 X10^3/uL (150.0-450.0) 03/06/22 05:07 MPV 8.0 fL (7.4-11.0) 03/06/22 05:07 Neut % (Auto) 70.3 % (42.0-75.0) 03/06/22 05:07 Lymph % (Auto) 16.6 % (21.0-51.0) L 03/06/22 05:07 [place] % (Auto) 8.3 % (0.0-13.0) 03/06/22 05:07 Eos % (Auto) 3.9 % (0.9-2.9) H 03/06/22 05:07 Baso % (Auto) 0.9 % (0.2-1.0) 03/06/22 05:07 Neut # (Auto) 5.4 x10^3/uL (2.2-4.8) H 03/06/22 05:07 Lymph # (Auto) 1.3 X10^3/uL (1.3-2.9) 03/06/22 05:07 [place] # (Auto) 0.6 x10^3/uL (0.3-0.8) 03/06/22 05:07 Eos # (Auto) 0.3 x10^3/uL (0.0-0.2) H 03/06/22 05:07 Baso # (Auto) 0.1 X10^3/uL (0.0-0.1) 03/06/22 05:07 Absolute Nucleated RBC 0.1 /100WBC 03/06/22 05:07 PT 15.0 SECONDS (11.8-14.3) 03/04/22 14:26 INR Target Range - 03/04/22 14:26 INR 1.22 (0.8-1.3) 03/04/22 14:26 Sodium 143 mmol/L (136-145) 03/06/22 05:07 Corrected Sodium 144 mmol/L (136-145) 03/06/22 05:07 Potassium 3.4 mmol/L (3.5-5.1) L 03/06/22 05:07 Chloride 105 mmol/L (98-107) 03/06/22 05:07 Carbon Dioxide 37.1 mmol/L (21-32) H 03/06/22 05:07 BUN 20 mg/dL (7-18) H 03/06/22 05:07 Creatinine 1.02 mg/dL (0.55-1.02) 03/06/22 05:07 Est GFR (MDRD) Af Amer > 60 (>60) 03/06/22 05:07 Est GFR (MDRD) Non-Af 55 (>60) L 03/06/22 05:07 Glucose 134 mg/dL (65-99) H 03/06/22 05:07 POC Glucose (mg/dL) 131 mg/dL (65-99) H 03/05/22 08:59 Calcium 9.3 mg/dL (8.5-10.1) 03/06/22 05:07 Corrected Calcium 10.3 mg/dL (8.5-10.1) H 03/06/22 05:07 Iron 15 ug/dL (50-175) L 03/03/22 15:40 Transferrin 299 mg/dL (202-364) 03/03/22 15:40 Ferritin 11 ng/mL (8-252) 03/03/22 15:40 Total Bilirubin 0.40 mg/dL (0.2-1.0) 03/06/22 05:07 AST 13 Units/L (15-37) L 03/06/22 05:07 ALT 15 Units/L (12-78) 03/06/22 05:07 Alkaline Phosphatase 80 Units/L (46-116) 03/06/22 05:07 Total Protein 5.7 g/dL (6.4-8.2) L 03/06/22 05:07 Albumin 2.8 g/dL (3.4-5.0) L 03/06/22 05:07 Globulin 2.9 g/dL (2.5-4.5) 03/06/22 05:07 Albumin/Globulin Ratio 1.0 Ratio (1.1-2.1) L 03/06/22 05:07 Vitamin B12 576 pg/mL (193-986) 03/03/22 15:40 Folate > 20.0 ng/mL (>8.6) 03/03/22 15:40 Specimen Type Catherized urine 03/04/22 11:08 Urine Color Pale yellow (YELLOW) 03/04/22 11:08 Urine Appearance Clear (CLEAR) 03/04/22 11:08 Urine pH 5.0 (5.0 - 8.0) 03/04/22 11:08 Ur Specific [place] 1.015 (1.000-1.030) 03/04/22 11:08 Urine Protein Negative (NEGATIVE) 03/04/22 11:08 Urine Glucose (UA) Negative (NEGATIVE) 03/04/22 11:08 Urine Ketones Negative (NEGATIVE) 03/04/22 11:08 Urine Blood 2+ (NEGATIVE) 03/04/22 11:08 Urine Nitrite Negative (NEGATIVE) 03/04/22 11:08 Urine Bilirubin Negative (NEGATIVE) 03/04/22 11:08 Urine Urobilinogen Normal (NORMAL) 03/04/22 11:08 Ur Leukocyte Esterase Negative (NEGATIVE) 03/04/22 11:08 Urine RBC 3-5 /HPF (0-3) A 03/04/22 11:08 Urine WBC None seen /HPF (0-5) 03/04/22 11:08 Ur Squamous Epith Cells Rare /HPF (NEGATIVE) 03/04/22 11:08 Urine Bacteria Trace /HPF (NEGATIVE) 03/04/22 11:08 Ur Culture Indicated? Yes/culture set up 03/04/22 11:08 Stl Occult Blood (IFOB) Negative (NEGATIVE) 03/06/22 06:07 Tissue Pathology To follow 03/05/22 09:07 Blood Type O POSITIVE 03/03/22 15:40 Antibody Screen Negative 03/03/22 15:40 Crossmatch See Detail 03/03/22 15:40 - Plan (1) Lower GI bleed Status: Acute Plan: TYPE AND SCREEN, TRANSFUSE PRBC. SERIAL OCCULT STOOLS, PROTONIX IV BID, STRICT I&OS. IV LASIX, EKG ON ADMISSION, SUPPLEMENTAL O2. VERIFY HOME MEDICATIONS. BP CONTROL, MAY NEED TO HOLD ANTIHYPERTENSIVE MEDICATION (2) Anemia Status: Chronic Qualifiers: Anemia type: iron deficiency Iron deficiency anemia type: chronic blood loss Qualified Code(s): D50.0 - Iron deficiency anemia secondary to blood loss (chronic) (3) CHF (congestive heart failure) Status: Chronic Qualifiers: Heart failure chronicity: acute on chronic (4) HTN (hypertension) Status: Chronic (5) Diabetes Status: Chronic Qualifiers: Diabetes mellitus type: type 2 Diabetes mellitus senior living insulin use: with senior living use Diabetes mellitus complication status: with hyperglycemia Qualified Code(s): E11.65 - Type 2 diabetes mellitus with hyperglycemia; Z79.4 - supervisor records change (current) use of insulin (6) A-fib Status: Chronic
[2022-03-06] MEDS: TYLENOL 325 MG TAB PO PRN (20:00)
[2022-03-06] MEDS: ZOCOR TAB 20 MG PO SCH (20:00)
[2022-03-06] MEDS: BENADRYL INJ 50 MG VIAL IVP PRN (20:08)
[2022-03-07 06:00] LABS: BASOPHILS # (AUTO) 0.1 X10^3/uL (0.0-0.1); EOSINOPHILS # (AUTO) 0.4 x10^3/uL (0.0-0.2); EOSINOPHILS % (AUTO) 4.1 % (0.9-2.9); HEMATOCRIT 28.3 % (36.0-47.0); HEMOGLOBIN 9.2 g/dL (12.0-16.0); LYMPHOCYTES # (AUTO) 1.5 X10^3/uL (1.3-2.9); LYMPHOCYTES % (AUTO) 16.7 % (21.0-51.0); MEAN CORPUSCULAR HEMOGLOBIN 26.1 pg (27.0-34.0); MEAN CORPUSCULAR HGB CONC 32.5 g/dL (33.0-35.0); MEAN CORPUSCULAR VOLUME 80.2 fL (80.0-100.0); MEAN PLATELET VOLUME 7.8 fL (7.4-11.0); MONOCYTES # (AUTO) 0.7 x10^3/uL (0.3-0.8); MONOCYTES % (AUTO) 8.5 % (0.0-13.0); NEUTROPHILS # (AUTO) 6.1 x10^3/uL (2.2-4.8); NEUTROPHILS % (AUTO) 69.7 % (42.0-75.0); RED BLOOD COUNT 3.53 X10^6/uL (3.5-5.4); RED CELL DISTRIBUTION WIDTH 19.4 % (11.6-16.5); WHITE BLOOD COUNT 8.8 X10^3/uL (3.6-10.0)
[2022-03-07 06:09] LABS: ALANINE AMINOTRANSFERASE 13 Units/L (12-78); ALKALINE PHOSPHATASE 82 Units/L (46-116); ASPARTATE AMINO TRANSFERASE 11 Units/L (15-37); BLOOD UREA NITROGEN 18 mg/dL (7-18); CALCIUM 9.5 mg/dL (8.5-10.1); CARBON DIOXIDE 38.3 mmol/L (21-32); CHLORIDE 105 mmol/L (98-107); COR CA(FOR HYPOALB) 10.3 mg/dL (8.5-10.1); COR NA(FOR HYPERGLY) 146 mmol/L (136-145); CREATININE 1.11 mg/dL (0.55-1.02); SODIUM 145 mmol/L (136-145); eGFR NON BLACK RACES 50 (>60)
[2022-03-07] MEDS: INVanz INJ 1 GRAM VIAL 1 G in NS 100 ML IV 100 ML IV SCH (08:02)
[2022-03-07] MEDS: LASIX IVP SCH ×2 (08:02→17:26)
[2022-03-07] MEDS: PROTONIX INJ 40 MG VIAL IVP SCH ×2 (08:03→20:44)
[2022-03-07] MEDS: ENTRESTO 24/26 MG TAB PO SCH ×2 (08:03→20:44)
[2022-03-07] MEDS: COREG TAB 6.25 MG PO SCH ×2 (08:04→20:44)
[2022-03-07] MEDS: K-DUR TAB 20 MEQ PO SCH (08:04)
[2022-03-07] MEDS: HEMOCYTE-PLUS PO SCH (08:04)
--- NOTE | 2022-03-07 14:24 | PCM.PROG ---
Progress Note - Progress Note for Day of Date of Exam: 03/07/22 - Subjective Subjective: The patient is an 82-year-old white female who was admitted with symptomatic anemia, lower GI bleed, and congestive heart failure exacerbation. Pt is status post transfusion PRBC for symptomatic anemia. Pt Hgb 9.2 this am. Pt has UTI, with multi-drug resistance. Pt is currently on IV Invanz. Pt has PMH of CHF and we resumed her BB and entresto. Pt will need PICC line placement for outpt IV antibiotics. - Past Medical Family Social History Past Med/Fam/Surg Hx: No changes since H&P Allergies: Allergies amoxicillin Allergy (Verified 05/22/17 11:41) - Review of Systems ROS: No change since H&P - Vital Signs and I&O's Vital Signs: Temperature 97.8 F Pulse Rate [Left Radial] 86 Respiratory Rate 20 Blood Pressure [Left Arm] 155/66 O2 Sat by Pulse Oximetry 97 Intake and Output: Intake & Output 03/05/22 03/06/22 03/07/22 03/08/22 11:59 11:59 11:59 11:59 Intake Total 1851 / 1851 660 / 660 1894 / 1894 Output Total 2550 / 2550 2800 / 2800 3650 / 3650 Balance -699 / -699 -2140 / -2140 -1756 / -1756 - Physical Exam Oriented: Normal Eyes: Normal Ear: Normal Nose: Normal Throat: Normal Respiratory: Diminished Cardiovascular: Irregular, Edema Auscultation: Bowel Sounds: Normal Tenderness: Normal Skin: Decreased Turgur Musculoskeletal: Right, Left, Leg, Swelling, Tender Psychiatric: Normal Mood Description: Calm Speech Pattern: Clear, Appropriate - Laboratory and Diagnostics Result Diagrams: 03/07/22 05:26 03/07/22 05:26 Labs: 03/04/22 11:08 Urine,Catheterized Urine Culture - Final Escherichia Coli Laboratory WBC 8.8 X10^3/uL (3.6-10.0) 03/07/22 05:26 RBC 3.53 X10^6/uL (3.5-5.4) 03/07/22 05:26 Hgb 9.2 g/dL (12.0-16.0) L 03/07/22 05:26 Hct 28.3 % (36.0-47.0) L 03/07/22 05:26 MCV 80.2 fL (80.0-100.0) 03/07/22 05:26 MCH 26.1 pg (27.0-34.0) L 03/07/22 05:26 MCHC 32.5 g/dL (33.0-35.0) L 03/07/22 05:26 RDW 19.4 % (11.6-16.5) H 03/07/22 05:26 Plt Count 185 X10^3/uL (150.0-450.0) 03/07/22 05:26 MPV 7.8 fL (7.4-11.0) 03/07/22 05:26 Neut % (Auto) 69.7 % (42.0-75.0) 03/07/22 05:26 Lymph % (Auto) 16.7 % (21.0-51.0) L 03/07/22 05:26 [place] % (Auto) 8.5 % (0.0-13.0) 03/07/22 05:26 Eos % (Auto) 4.1 % (0.9-2.9) H 03/07/22 05:26 Baso % (Auto) 1.0 % (0.2-1.0) 03/07/22 05:26 Neut # (Auto) 6.1 x10^3/uL (2.2-4.8) H 03/07/22 05:26 Lymph # (Auto) 1.5 X10^3/uL (1.3-2.9) 03/07/22 05:26 [place] # (Auto) 0.7 x10^3/uL (0.3-0.8) 03/07/22 05:26 Eos # (Auto) 0.4 x10^3/uL (0.0-0.2) H 03/07/22 05:26 Baso # (Auto) 0.1 X10^3/uL (0.0-0.1) 03/07/22 05:26 Absolute Nucleated RBC 0.0 /100WBC 03/07/22 05:26 PT 15.0 SECONDS (11.8-14.3) 03/04/22 14:26 INR Target Range - 03/04/22 14:26 INR 1.22 (0.8-1.3) 03/04/22 14:26 Sodium 145 mmol/L (136-145) 03/07/22 05:26 Corrected Sodium 146 mmol/L (136-145) H 03/07/22 05:26 Potassium 3.4 mmol/L (3.5-5.1) L 03/07/22 05:26 Chloride 105 mmol/L (98-107) 03/07/22 05:26 Carbon Dioxide 38.3 mmol/L (21-32) H 03/07/22 05:26 BUN 18 mg/dL (7-18) 03/07/22 05:26 Creatinine 1.11 mg/dL (0.55-1.02) H 03/07/22 05:26 Est GFR (MDRD) Af Amer > 60 (>60) 03/07/22 05:26 Est GFR (MDRD) Non-Af 50 (>60) L 03/07/22 05:26 Glucose 145 mg/dL (65-99) H 03/07/22 05:26 POC Glucose (mg/dL) 131 mg/dL (65-99) H 03/05/22 08:59 Calcium 9.5 mg/dL (8.5-10.1) 03/07/22 05:26 Corrected Calcium 10.3 mg/dL (8.5-10.1) H 03/07/22 05:26 Iron 15 ug/dL (50-175) L 03/03/22 15:40 Transferrin 299 mg/dL (202-364) 03/03/22 15:40 Ferritin 11 ng/mL (8-252) 03/03/22 15:40 Total Bilirubin 0.40 mg/dL (0.2-1.0) 03/07/22 05:26 AST 11 Units/L (15-37) L 03/07/22 05:26 ALT 13 Units/L (12-78) 03/07/22 05:26 Alkaline Phosphatase 82 Units/L (46-116) 03/07/22 05:26 Total Protein 6.0 g/dL (6.4-8.2) L 03/07/22 05:26 Albumin 3.0 g/dL (3.4-5.0) L 03/07/22 05:26 Globulin 3.0 g/dL (2.5-4.5) 03/07/22 05:26 Albumin/Globulin Ratio 1.0 Ratio (1.1-2.1) L 03/07/22 05:26 Vitamin B12 576 pg/mL (193-986) 03/03/22 15:40 Folate > 20.0 ng/mL (>8.6) 03/03/22 15:40 Specimen Type Catherized urine 03/04/22 11:08 Urine Color Pale yellow (YELLOW) 03/04/22 11:08 Urine Appearance Clear (CLEAR) 03/04/22 11:08 Urine pH 5.0 (5.0 - 8.0) 03/04/22 11:08 Ur Specific [place] 1.015 (1.000-1.030) 03/04/22 11:08 Urine Protein Negative (NEGATIVE) 03/04/22 11:08 Urine Glucose (UA) Negative (NEGATIVE) 03/04/22 11:08 Urine Ketones Negative (NEGATIVE) 03/04/22 11:08 Urine Blood 2+ (NEGATIVE) 03/04/22 11:08 Urine Nitrite Negative (NEGATIVE) 03/04/22 11:08 Urine Bilirubin Negative (NEGATIVE) 03/04/22 11:08 Urine Urobilinogen Normal (NORMAL) 03/04/22 11:08 Ur Leukocyte Esterase Negative (NEGATIVE) 03/04/22 11:08 Urine RBC 3-5 /HPF (0-3) A 03/04/22 11:08 Urine WBC None seen /HPF (0-5) 03/04/22 11:08 Ur Squamous Epith Cells Rare /HPF (NEGATIVE) 03/04/22 11:08 Urine Bacteria Trace /HPF (NEGATIVE) 03/04/22 11:08 Ur Culture Indicated? Yes/culture set up 03/04/22 11:08 Stl Occult Blood (IFOB) Negative (NEGATIVE) 03/06/22 06:07 Tissue Pathology To follow 03/05/22 09:07 Blood Type O POSITIVE 03/03/22 15:40 Antibody Screen Negative 03/03/22 15:40 Crossmatch See Detail 03/03/22 15:40 - Plan (1) Urinary tract infection Status: Acute Plan: CONTINUE IV ATBX, PLAN TO OBTAIN PICC LINE FOR OUTPT TREATMENT OF MULTI- DRUG RESISTANT ECOLI UTI (2) Lower GI bleed Status: Acute Plan: TYPE AND SCREEN, TRANSFUSE PRBC. SERIAL OCCULT STOOLS, PROTONIX IV BID, STRICT I&OS. IV LASIX, EKG ON ADMISSION, SUPPLEMENTAL O2. VERIFY HOME MEDICATIONS. BP CONTROL, MAY NEED TO HOLD ANTIHYPERTENSIVE MEDICATION (3) Anemia Status: Chronic Qualifiers: Anemia type: iron deficiency Iron deficiency anemia type: chronic blood loss Qualified Code(s): D50.0 - Iron deficiency anemia secondary to blood loss (chronic) (4) CHF (congestive heart failure) Status: Chronic Qualifiers: Heart failure chronicity: acute on chronic (5) HTN (hypertension) Status: Chronic (6) Diabetes Status: Chronic Qualifiers: Diabetes mellitus type: type 2 Diabetes mellitus terminal supervisor insulin use: with terminal supervisor use Diabetes mellitus complication status: with hyperglycemia Qualified Code(s): E11.65 - Type 2 diabetes mellitus with hyperglycemia; Z79.4 - jail (current) use of insulin (7) A-fib Status: Chronic
[2022-03-07] MEDS ORDERED: POTASSIUM CHL 40 MEQ/NS 0.45% 500 ML IV PRN (19:05)
[2022-03-07] MEDS ORDERED: KLOR-CON PO PRN (19:05)
[2022-03-07] MEDS ORDERED: K-RIDER 10 MEQ/NS 100 ML 10 MEQ/100 ML BAG IV PRN (19:05)
[2022-03-07] MEDS ORDERED: MICRO K EXTEN CAP 10 MEQ PO PRN (19:05)
[2022-03-07] MEDS ORDERED: K-DUR TAB 20 MEQ PO PRN (19:05)
[2022-03-07] MEDS ORDERED: POTASSIUM CHL 60 MEQ/NS 0.45% 500 ML IV PRN (19:05)
[2022-03-07] MEDS: ZOCOR TAB 20 MG PO SCH (20:44)
[2022-03-07] MEDS: BENADRYL INJ 50 MG VIAL IVP PRN (20:45)
[2022-03-08 05:10] LABS: BASOPHILS # (AUTO) 0.1 X10^3/uL (0.0-0.1); EOSINOPHILS # (AUTO) 0.4 x10^3/uL (0.0-0.2); HEMATOCRIT 30.8 % (36.0-47.0); LYMPHOCYTES # (AUTO) 1.6 X10^3/uL (1.3-2.9); LYMPHOCYTES % (AUTO) 15.6 % (21.0-51.0); MEAN CORPUSCULAR HEMOGLOBIN 26.2 pg (27.0-34.0); MEAN CORPUSCULAR HGB CONC 32.6 g/dL (33.0-35.0); MEAN CORPUSCULAR VOLUME 80.3 fL (80.0-100.0); MEAN PLATELET VOLUME 7.5 fL (7.4-11.0); MONOCYTES # (AUTO) 0.9 x10^3/uL (0.3-0.8); MONOCYTES % (AUTO) 8.3 % (0.0-13.0); NEUTROPHILS # (AUTO) 7.3 x10^3/uL (2.2-4.8); NEUTROPHILS % (AUTO) 71.1 % (42.0-75.0); RED BLOOD COUNT 3.83 X10^6/uL (3.5-5.4); WHITE BLOOD COUNT 10.3 X10^3/uL (3.6-10.0)
[2022-03-08 05:21] LABS: ALANINE AMINOTRANSFERASE 16 Units/L (12-78); ALBUMIN 3.1 g/dL (3.4-5.0); ALKALINE PHOSPHATASE 87 Units/L (46-116); ASPARTATE AMINO TRANSFERASE 13 Units/L (15-37); BLOOD UREA NITROGEN 16 mg/dL (7-18); CALCIUM 9.9 mg/dL (8.5-10.1); CARBON DIOXIDE 36.2 mmol/L (21-32); CHLORIDE 104 mmol/L (98-107); COR CA(FOR HYPOALB) 10.6 mg/dL (8.5-10.1); COR NA(FOR HYPERGLY) 147 mmol/L (136-145); CREATININE 1.02 mg/dL (0.55-1.02); MAGNESIUM 1.4 mg/dL (2.0-2.9); SODIUM 146 mmol/L (136-145); TOTAL PROTEIN 6.4 g/dL (6.4-8.2); eGFR NON BLACK RACES 55 (>60)
[2022-03-08] MEDS: MAGNESIUM SULFATE 1 GRAM/100 mL PREMIX 1 G/100 ML BAG IV PRN ×4 (06:07→12:21)
[2022-03-08] MEDS: ENTRESTO 24/26 MG TAB PO SCH ×2 (08:50→20:25)
[2022-03-08] MEDS: PROTONIX INJ 40 MG VIAL IVP SCH ×2 (08:50→20:26)
[2022-03-08] MEDS: HEMOCYTE-PLUS PO SCH (08:50)
[2022-03-08] MEDS: INVanz INJ 1 GRAM VIAL 1 G in NS 100 ML IV 100 ML IV SCH (08:50)
[2022-03-08] MEDS: K-DUR TAB 20 MEQ PO SCH (08:51)
[2022-03-08] MEDS: LASIX IVP SCH ×2 (08:51→16:21)
[2022-03-08] MEDS: COREG TAB 6.25 MG PO SCH ×2 (08:51→20:26)
--- NOTE | 2022-03-08 11:28 | PCM.PROG ---
Progress Note Progress Note for Day of Date of Exam: 03/08/22 Subjective Subjective: Patient seen at bedside, no overnight events. She has been doing well. She was admitted for anemIa, GI bleed and CHF exacerbation. She is currently being treated for ESBL UTI. Denies n/v/d or abdominal pain. Her appetite is slowly improving. Labs reviewed: K 3.3 Mg 1.4 Hgb 10 Urine Cx: ESBL E.coli Plan: continue IV Invanz. Replace K and Mag as per protocol. Encouraged PO intake. PT/OT as tolerated. Continue current medications. Patient will need Picc line for outpatient antibiotics. Monitor AM labs/imaging. Past Medical Family Social History Past Med/Fam/Surg Hx: No changes since H&P Allergies: Allergies amoxicillin Allergy (Verified 05/22/17 11:41) Review of Systems ROS: No change since H&P Vital Signs and I&O's Vital Signs: Temperature 98.6 F Pulse Rate [Left Radial] 89 Respiratory Rate 20 Blood Pressure [Left Arm] 128/66 O2 Sat by Pulse Oximetry 91 Intake and Output: Intake & Output 03/05/22 03/06/22 03/07/22 03/08/22 23:59 23:59 23:59 23:59 Intake Total 820 / 820 1844 / 1844 909 / 909 160 / 160 Output Total 4200 / 4200 3600 / 3600 250 / 250 Balance -3380 / -3380 -1756 / -1756 659 / 659 160 / 160 Physical Exam Oriented: Normal Eyes: Normal Ear: Normal Nose: Normal Throat: Normal Respiratory: Diminished Cardiovascular: Irregular and Edema Auscultation: Bowel Sounds: Normal Tenderness: Normal Skin: Decreased Turgur Musculoskeletal: Right, Left, Leg and Swelling Psychiatric: Normal Mood Description: Calm Speech Pattern: Clear and Appropriate Laboratory and Diagnostics Result Diagrams: 03/08/22 04:36 03/08/22 04:36 Labs: 03/04/22 11:08 Urine,Catheterized Urine Culture - Final Escherichia Coli Laboratory WBC 10.3 X10^3/uL (3.6-10.0) H 03/08/22 04:36 RBC 3.83 X10^6/uL (3.5-5.4) 03/08/22 04:36 Hgb 10.0 g/dL (12.0-16.0) L 03/08/22 04:36 Hct 30.8 % (36.0-47.0) L 03/08/22 04:36 MCV 80.3 fL (80.0-100.0) 03/08/22 04:36 MCH 26.2 pg (27.0-34.0) L 03/08/22 04:36 MCHC 32.6 g/dL (33.0-35.0) L 03/08/22 04:36 RDW 20.0 % (11.6-16.5) H 03/08/22 04:36 Plt Count 213 X10^3/uL (150.0-450.0) 03/08/22 04:36 MPV 7.5 fL (7.4-11.0) 03/08/22 04:36 Neut % (Auto) 71.1 % (42.0-75.0) 03/08/22 04:36 Lymph % (Auto) 15.6 % (21.0-51.0) L 03/08/22 04:36 [place] % (Auto) 8.3 % (0.0-13.0) 03/08/22 04:36 Eos % (Auto) 4.0 % (0.9-2.9) H 03/08/22 04:36 Baso % (Auto) 1.0 % (0.2-1.0) 03/08/22 04:36 Neut # (Auto) 7.3 x10^3/uL (2.2-4.8) H 03/08/22 04:36 Lymph # (Auto) 1.6 X10^3/uL (1.3-2.9) 03/08/22 04:36 [place] # (Auto) 0.9 x10^3/uL (0.3-0.8) H 03/08/22 04:36 Eos # (Auto) 0.4 x10^3/uL (0.0-0.2) H 03/08/22 04:36 Baso # (Auto) 0.1 X10^3/uL (0.0-0.1) 03/08/22 04:36 Absolute Nucleated RBC 0.0 /100WBC 03/08/22 04:36 PT 15.0 SECONDS (11.8-14.3) 03/04/22 14:26 INR Target Range - 03/04/22 14:26 INR 1.22 (0.8-1.3) 03/04/22 14:26 Sodium 146 mmol/L (136-145) H 03/08/22 04:36 Corrected Sodium 147 mmol/L (136-145) H 03/08/22 04:36 Potassium 3.3 mmol/L (3.5-5.1) L 03/08/22 04:36 Chloride 104 mmol/L (98-107) 03/08/22 04:36 Carbon Dioxide 36.2 mmol/L (21-32) H 03/08/22 04:36 BUN 16 mg/dL (7-18) 03/08/22 04:36 Creatinine 1.02 mg/dL (0.55-1.02) 03/08/22 04:36 Est GFR (MDRD) Af Amer > 60 (>60) 03/08/22 04:36 Est GFR (MDRD) Non-Af 55 (>60) L 03/08/22 04:36 Glucose 155 mg/dL (65-99) H 03/08/22 04:36 POC Glucose (mg/dL) 131 mg/dL (65-99) H 03/05/22 08:59 Calcium 9.9 mg/dL (8.5-10.1) 03/08/22 04:36 Corrected Calcium 10.6 mg/dL (8.5-10.1) H 03/08/22 04:36 Magnesium 1.4 mg/dL (2.0-2.9) L 03/08/22 04:36 Iron 15 ug/dL (50-175) L 03/03/22 15:40 Transferrin 299 mg/dL (202-364) 03/03/22 15:40 Ferritin 11 ng/mL (8-252) 03/03/22 15:40 Total Bilirubin 0.40 mg/dL (0.2-1.0) 03/08/22 04:36 AST 13 Units/L (15-37) L 03/08/22 04:36 ALT 16 Units/L (12-78) 03/08/22 04:36 Alkaline Phosphatase 87 Units/L (46-116) 03/08/22 04:36 Total Protein 6.4 g/dL (6.4-8.2) 03/08/22 04:36 Albumin 3.1 g/dL (3.4-5.0) L 03/08/22 04:36 Globulin 3.3 g/dL (2.5-4.5) 03/08/22 04:36 Albumin/Globulin Ratio 0.9 Ratio (1.1-2.1) L 03/08/22 04:36 Vitamin B12 576 pg/mL (193-986) 03/03/22 15:40 Folate > 20.0 ng/mL (>8.6) 03/03/22 15:40 Specimen Type Catherized urine 03/04/22 11:08 Urine Color Pale yellow (YELLOW) 03/04/22 11:08 Urine Appearance Clear (CLEAR) 03/04/22 11:08 Urine pH 5.0 (5.0 - 8.0) 03/04/22 11:08 Ur Specific [place] 1.015 (1.000-1.030) 03/04/22 11:08 Urine Protein Negative (NEGATIVE) 03/04/22 11:08 Urine Glucose (UA) Negative (NEGATIVE) 03/04/22 11:08 Urine Ketones Negative (NEGATIVE) 03/04/22 11:08 Urine Blood 2+ (NEGATIVE) 03/04/22 11:08 Urine Nitrite Negative (NEGATIVE) 03/04/22 11:08 Urine Bilirubin Negative (NEGATIVE) 03/04/22 11:08 Urine Urobilinogen Normal (NORMAL) 03/04/22 11:08 Ur Leukocyte Esterase Negative (NEGATIVE) 03/04/22 11:08 Urine RBC 3-5 /HPF (0-3) A 03/04/22 11:08 Urine WBC None seen /HPF (0-5) 03/04/22 11:08 Ur Squamous Epith Cells Rare /HPF (NEGATIVE) 03/04/22 11:08 Urine Bacteria Trace /HPF (NEGATIVE) 03/04/22 11:08 Ur Culture Indicated? Yes/culture set up 03/04/22 11:08 Stl Occult Blood (IFOB) Negative (NEGATIVE) 03/06/22 06:07 Tissue Pathology To follow 03/05/22 09:07 Blood Type O POSITIVE 03/03/22 15:40 Antibody Screen Negative 03/03/22 15:40 Crossmatch See Detail 03/03/22 15:40 Plan (1) Urinary tract infection: Status: Acute (2) Lower GI bleed: Status: Acute Plan: N (3) Anemia: Status: Chronic Qualifiers: Anemia type: iron deficiency Iron deficiency anemia type: chronic blood loss Qualified Code(s): D50.0 - Iron deficiency anemia secondary to blood loss (chronic) (4) CHF (congestive heart failure): Status: Chronic Qualifiers: Heart failure chronicity: acute on chronic (5) HTN (hypertension): Status: Chronic (6) Diabetes: Status: Chronic Qualifiers: Diabetes mellitus complication status: with hyperglycemia Diabetes mellitus penitentiary insulin use: with ferry terminal agent use Diabetes mellitus type: type 2 Qualified Code(s): E11.65 - Type 2 diabetes mellitus with hyperglycemia; Z79.4 - penitentiary (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
[2022-03-08] MEDS: ZOCOR TAB 20 MG PO SCH (20:26)
[2022-03-08] MEDS: BENADRYL INJ 50 MG VIAL IVP PRN (20:42)
[2022-03-09 05:15] LABS: BASOPHILS # (AUTO) 0.1 X10^3/uL (0.0-0.1); BASOPHILS % (AUTO) 1.1 % (0.2-1.0); EOSINOPHILS # (AUTO) 0.4 x10^3/uL (0.0-0.2); HEMATOCRIT 30.5 % (36.0-47.0); LYMPHOCYTES # (AUTO) 1.6 X10^3/uL (1.3-2.9); LYMPHOCYTES % (AUTO) 16.3 % (21.0-51.0); MEAN CORPUSCULAR HEMOGLOBIN 26.4 pg (27.0-34.0); MEAN CORPUSCULAR HGB CONC 32.9 g/dL (33.0-35.0); MEAN CORPUSCULAR VOLUME 80.1 fL (80.0-100.0); MEAN PLATELET VOLUME 7.4 fL (7.4-11.0); MONOCYTES # (AUTO) 0.8 x10^3/uL (0.3-0.8); MONOCYTES % (AUTO) 8.1 % (0.0-13.0); NEUTROPHILS # (AUTO) 6.7 x10^3/uL (2.2-4.8); NEUTROPHILS % (AUTO) 70.5 % (42.0-75.0); RED CELL DISTRIBUTION WIDTH 20.4 % (11.6-16.5); WHITE BLOOD COUNT 9.5 X10^3/uL (3.6-10.0)
[2022-03-09 05:25] LABS: ANISOCYTOSIS 1+; PLATELET MORPHOLOGY COMMENT NORMAL (NORMAL)
[2022-03-09 05:27] LABS: ALANINE AMINOTRANSFERASE 16 Units/L (12-78); ALBUMIN 2.9 g/dL (3.4-5.0); ALKALINE PHOSPHATASE 83 Units/L (46-116); ASPARTATE AMINO TRANSFERASE 15 Units/L (15-37); BLOOD UREA NITROGEN 17 mg/dL (7-18); CALCIUM 9.9 mg/dL (8.5-10.1); CARBON DIOXIDE 34.5 mmol/L (21-32); CHLORIDE 104 mmol/L (98-107); COR CA(FOR HYPOALB) 10.8 mg/dL (8.5-10.1); COR NA(FOR HYPERGLY) 146 mmol/L (136-145); CREATININE 1.04 mg/dL (0.55-1.02); MAGNESIUM 2.2 mg/dL (2.0-2.9); SODIUM 145 mmol/L (136-145); TOTAL PROTEIN 6.1 g/dL (6.4-8.2); eGFR NON BLACK RACES 54 (>60)
[2022-03-09] MEDS: HEMOCYTE-PLUS PO SCH (08:16)
[2022-03-09] MEDS: COREG TAB 6.25 MG PO SCH ×2 (08:16→20:08)
[2022-03-09] MEDS: ENTRESTO 24/26 MG TAB PO SCH ×2 (08:17→20:08)
[2022-03-09] MEDS: K-DUR TAB 20 MEQ PO SCH (08:17)
[2022-03-09] MEDS: PROTONIX INJ 40 MG VIAL IVP SCH ×2 (08:17→20:08)
[2022-03-09] MEDS: LASIX IVP SCH ×2 (08:17→16:41)
[2022-03-09] MEDS: INVanz INJ 1 GRAM VIAL 1 G in NS 100 ML IV 100 ML IV SCH (08:17)
--- NOTE | 2022-03-09 10:26 | PCM.PROG ---
Progress Note Progress Note for Day of Date of Exam: 03/09/22 Subjective Subjective: Patient seen at bedside, no overnight events. She feels better today. She has been ambulating in the room. She was admitted for anemia, GI bleed and CHF exacerbation. She is currently being treated for ESBL UTI. Denies n/v/d or abdominal pain. Labs reviewed: K 3.5 Mg 2.2 Hgb 10 Urine Cx: ESBL E.coli Plan: continue IV Invanz. Encouraged PO intake. PT/OT as tolerated. Continue current medications. Patient will need Picc line for outpatient antibiotics. Monitor AM labs/imaging. Past Medical Family Social History Past Med/Fam/Surg Hx: No changes since H&P Allergies: Allergies amoxicillin Allergy (Verified 05/22/17 11:41) Review of Systems ROS: No change since H&P Vital Signs and I&O's Vital Signs: Temperature 99.2 F Pulse Rate [Left Radial] 81 Respiratory Rate 18 Blood Pressure [Left Arm] 128/66 O2 Sat by Pulse Oximetry 94 Intake and Output: Intake & Output 03/06/22 03/07/22 03/08/22 03/09/22 23:59 23:59 23:59 23:59 Intake Total 1844 / 1844 909 / 909 1377 / 1377 Output Total 3600 / 3600 250 / 250 Balance -1756 / -1756 659 / 659 1377 / 1377 Physical Exam Oriented: Normal Eyes: Normal Ear: Normal Nose: Normal Throat: Normal Respiratory: Diminished Cardiovascular: Irregular and Edema Auscultation: Bowel Sounds: Normal Tenderness: Normal Skin: Decreased Turgur Musculoskeletal: Right, Left, Leg and Swelling Psychiatric: Normal Mood Description: Calm Speech Pattern: Clear and Appropriate Laboratory and Diagnostics Result Diagrams: 03/09/22 04:37 03/09/22 04:37 Labs: 03/04/22 11:08 Urine,Catheterized Urine Culture - Final Escherichia Coli Laboratory WBC 9.5 X10^3/uL (3.6-10.0) 03/09/22 04:37 RBC 3.80 X10^6/uL (3.5-5.4) 03/09/22 04:37 Hgb 10.0 g/dL (12.0-16.0) L 03/09/22 04:37 Hct 30.5 % (36.0-47.0) L 03/09/22 04:37 MCV 80.1 fL (80.0-100.0) 03/09/22 04:37 MCH 26.4 pg (27.0-34.0) L 03/09/22 04:37 MCHC 32.9 g/dL (33.0-35.0) L 03/09/22 04:37 RDW 20.4 % (11.6-16.5) H 03/09/22 04:37 Plt Count 233 X10^3/uL (150.0-450.0) 03/09/22 04:37 Plt Count Comment Adequate (ADEQUATE) 03/09/22 04:37 MPV 7.4 fL (7.4-11.0) 03/09/22 04:37 Neut % (Auto) 70.5 % (42.0-75.0) 03/09/22 04:37 Lymph % (Auto) 16.3 % (21.0-51.0) L 03/09/22 04:37 Barnes % (Auto) 8.1 % (0.0-13.0) 03/09/22 04:37 Eos % (Auto) 4.0 % (0.9-2.9) H 03/09/22 04:37 Baso % (Auto) 1.1 % (0.2-1.0) H 03/09/22 04:37 Neut # (Auto) 6.7 x10^3/uL (2.2-4.8) H 03/09/22 04:37 Lymph # (Auto) 1.6 X10^3/uL (1.3-2.9) 03/09/22 04:37 Barnes # (Auto) 0.8 x10^3/uL (0.3-0.8) 03/09/22 04:37 Eos # (Auto) 0.4 x10^3/uL (0.0-0.2) H 03/09/22 04:37 Baso # (Auto) 0.1 X10^3/uL (0.0-0.1) 03/09/22 04:37 Absolute Nucleated RBC 0.0 /100WBC 03/09/22 04:37 Plt Morphology Comment Normal (NORMAL) 03/09/22 04:37 RBC Morphology Abnormal (NORMAL) A 03/09/22 04:37 Anisocytosis 1+ A 03/09/22 04:37 PT 15.0 SECONDS (11.8-14.3) 03/04/22 14:26 INR Target Range - 03/04/22 14:26 INR 1.22 (0.8-1.3) 03/04/22 14:26 Sodium 145 mmol/L (136-145) 03/09/22 04:37 Corrected Sodium 146 mmol/L (136-145) H 03/09/22 04:37 Potassium 3.5 mmol/L (3.5-5.1) 03/09/22 04:37 Chloride 104 mmol/L (98-107) 03/09/22 04:37 Carbon Dioxide 34.5 mmol/L (21-32) H 03/09/22 04:37 BUN 17 mg/dL (7-18) 03/09/22 04:37 Creatinine 1.04 mg/dL (0.55-1.02) H 03/09/22 04:37 Est GFR (MDRD) Af Amer > 60 (>60) 03/09/22 04:37 Est GFR (MDRD) Non-Af 54 (>60) L 03/09/22 04:37 Glucose 142 mg/dL (65-99) H 03/09/22 04:37 POC Glucose (mg/dL) 131 mg/dL (65-99) H 03/05/22 08:59 Calcium 9.9 mg/dL (8.5-10.1) 03/09/22 04:37 Corrected Calcium 10.8 mg/dL (8.5-10.1) H 03/09/22 04:37 Magnesium 2.2 mg/dL (2.0-2.9) 03/09/22 04:37 Iron 15 ug/dL (50-175) L 03/03/22 15:40 Transferrin 299 mg/dL (202-364) 03/03/22 15:40 Ferritin 11 ng/mL (8-252) 03/03/22 15:40 Total Bilirubin 0.50 mg/dL (0.2-1.0) 03/09/22 04:37 AST 15 Units/L (15-37) 03/09/22 04:37 ALT 16 Units/L (12-78) 03/09/22 04:37 Alkaline Phosphatase 83 Units/L (46-116) 03/09/22 04:37 Total Protein 6.1 g/dL (6.4-8.2) L 03/09/22 04:37 Albumin 2.9 g/dL (3.4-5.0) L 03/09/22 04:37 Globulin 3.2 g/dL (2.5-4.5) 03/09/22 04:37 Albumin/Globulin Ratio 0.9 Ratio (1.1-2.1) L 03/09/22 04:37 Vitamin B12 576 pg/mL (193-986) 03/03/22 15:40 Folate > 20.0 ng/mL (>8.6) 03/03/22 15:40 Specimen Type Catherized urine 03/04/22 11:08 Urine Color Pale yellow (YELLOW) 03/04/22 11:08 Urine Appearance Clear (CLEAR) 03/04/22 11:08 Urine pH 5.0 (5.0 - 8.0) 03/04/22 11:08 Ur Specific [place] 1.015 (1.000-1.030) 03/04/22 11:08 Urine Protein Negative (NEGATIVE) 03/04/22 11:08 Urine Glucose (UA) Negative (NEGATIVE) 03/04/22 11:08 Urine Ketones Negative (NEGATIVE) 03/04/22 11:08 Urine Blood 2+ (NEGATIVE) 03/04/22 11:08 Urine Nitrite Negative (NEGATIVE) 03/04/22 11:08 Urine Bilirubin Negative (NEGATIVE) 03/04/22 11:08 Urine Urobilinogen Normal (NORMAL) 03/04/22 11:08 Ur Leukocyte Esterase Negative (NEGATIVE) 03/04/22 11:08 Urine RBC 3-5 /HPF (0-3) A 03/04/22 11:08 Urine WBC None seen /HPF (0-5) 03/04/22 11:08 Ur Squamous Epith Cells Rare /HPF (NEGATIVE) 03/04/22 11:08 Urine Bacteria Trace /HPF (NEGATIVE) 03/04/22 11:08 Ur Culture Indicated? Yes/culture set up 03/04/22 11:08 Stl Occult Blood (IFOB) Negative (NEGATIVE) 03/06/22 06:07 Tissue Pathology To follow 03/05/22 09:07 Blood Type O POSITIVE 03/03/22 15:40 Antibody Screen Negative 03/03/22 15:40 Crossmatch See Detail 03/03/22 15:40 Plan (1) Urinary tract infection: Status: Acute (2) Lower GI bleed: Status: Acute Plan: N (3) Anemia: Status: Chronic Qualifiers: Anemia type: iron deficiency Iron deficiency anemia type: chronic blood loss Qualified Code(s): D50.0 - Iron deficiency anemia secondary to blood loss (chronic) (4) CHF (congestive heart failure): Status: Chronic Qualifiers: Heart failure chronicity: acute on chronic (5) HTN (hypertension): Status: Chronic (6) Diabetes: Status: Chronic Qualifiers: Diabetes mellitus complication status: with hyperglycemia 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
[2022-03-09] MEDS: ZOCOR TAB 20 MG PO SCH (20:08)
[2022-03-09] MEDS: BENADRYL INJ 50 MG VIAL IVP PRN (20:21)
[2022-03-09] MEDS: MILK OF MAGNESIA PO SCH (20:22)
[2022-03-10 05:01] LABS: BASOPHILS # (AUTO) 0.1 X10^3/uL (0.0-0.1); BASOPHILS % (AUTO) 0.9 % (0.2-1.0); EOSINOPHILS # (AUTO) 0.4 x10^3/uL (0.0-0.2); EOSINOPHILS % (AUTO) 4.2 % (0.9-2.9); HEMATOCRIT 30.3 % (36.0-47.0); HEMOGLOBIN 9.8 g/dL (12.0-16.0); LYMPHOCYTES # (AUTO) 1.7 X10^3/uL (1.3-2.9); LYMPHOCYTES % (AUTO) 17.5 % (21.0-51.0); MEAN CORPUSCULAR HEMOGLOBIN 26.1 pg (27.0-34.0); MEAN CORPUSCULAR HGB CONC 32.5 g/dL (33.0-35.0); MEAN CORPUSCULAR VOLUME 80.5 fL (80.0-100.0); MEAN PLATELET VOLUME 7.4 fL (7.4-11.0); MONOCYTES # (AUTO) 0.8 x10^3/uL (0.3-0.8); MONOCYTES % (AUTO) 8.7 % (0.0-13.0); NEUTROPHILS # (AUTO) 6.6 x10^3/uL (2.2-4.8); NEUTROPHILS % (AUTO) 68.7 % (42.0-75.0); RED BLOOD COUNT 3.76 X10^6/uL (3.5-5.4); RED CELL DISTRIBUTION WIDTH 20.6 % (11.6-16.5); WHITE BLOOD COUNT 9.6 X10^3/uL (3.6-10.0)
[2022-03-10 05:10] LABS: ALBUMIN 2.8 g/dL (3.4-5.0); CARBON DIOXIDE 35.1 mmol/L (21-32); CREATININE 1.15 mg/dL (0.55-1.02); TOTAL PROTEIN 5.9 g/dL (6.4-8.2)
[2022-03-10 05:15] LABS: ANISOCYTOSIS 1+; HYPOCHROMASIA SLIGHT; PLATELET MORPHOLOGY COMMENT NORMAL (NORMAL)
[2022-03-10] MEDS: MAGNESIUM SULFATE 1 GRAM/100 mL PREMIX 1 G/100 ML BAG IV PRN (05:55)
[2022-03-10] MEDS: HEMOCYTE-PLUS PO SCH (09:29)
[2022-03-10] MEDS: COREG TAB 6.25 MG PO SCH (09:30)
[2022-03-10] MEDS: ENTRESTO 24/26 MG TAB PO SCH (09:30)
[2022-03-10] MEDS: INVanz INJ 1 GRAM VIAL 1 G in NS 100 ML IV 100 ML IV SCH (09:30)
[2022-03-10] MEDS: K-DUR TAB 20 MEQ PO SCH (09:30)
[2022-03-10] MEDS: LASIX IVP SCH (09:31)
[2022-03-10] MEDS: PROTONIX INJ 40 MG VIAL IVP SCH (09:31)
[2022-03-10] MEDS: MILK OF MAGNESIA PO SCH (09:38)
[2022-03-10 13:56] VITALS: BP 118/59
--- NOTE | 2022-03-10 13:57 | RAD ---
HISTORYPICC LINE PLACEMENTSTUDYCHEST, 1 [id number] cardiomediastinal silhouette is stable. Left-sided pacer and pacer wires unchanged. No acute airspace disease. No pneumothorax or effusion. The bony thorax appears intact.IMPRESSIONNo acute cardiopulmonary disease.Electronically signed by: CHANTELLE STONE (Mar 10, 2022 13:55:13)
--- NOTE | 2022-03-11 07:48 | DR.UPDATE ---
H&P Update H&P Reviewed: Yes Any changes to H&P?: No Patient was examined?: Yes Procedures (ALL) - Central Line Placement PCM.CLCO: written consent Time out performed: Yes Patient placed pm monitor/pulse ox: Yes MD prep: mask, gown, gloves, other Centrial line prep: chlorhexidine scrub, sterile drapes applied Local anesthsia used: lidocane 1% Ultrasound used for placement: Yes (left basilic id'd via u/s) Central line lumen ininserted: double Post procedure: good blood return, all ports aspirated, flushed,capped, sterile dressing applied Post procedure xray: tip oc catheter in good position (adequate per radilogist), no pneumothorax seen Patient tolerated procedure: Yes Complications: none
== END 2022-03-10 15:55 | disposition home health service (06) | DRG 378 ==
LOC: MED/SURG
PROVIDERS: ADMIT Internal Medicine; ATTEND Internal Medicine
DX: Z79.01 Long term (current) use of anticoagulants; B96.20 Unspecified Escherichia coli [E. coli] as the cause of diseases classified elsewhere; R42 Dizziness and giddiness; I10 Essential (primary) hypertension; I50.9 Heart failure, unspecified; I87.2 Venous insufficiency (chronic) (peripheral); D50.9 Iron deficiency anemia, unspecified; R58 Hemorrhage, not elsewhere classified; Z79.4 Long term (current) use of insulin; R26.9 Unspecified abnormalities of gait and mobility; D68.9 Coagulation defect, unspecified; F32.A Depression, unspecified; K64.3 Fourth degree hemorrhoids; E11.65 Type 2 diabetes mellitus with hyperglycemia; N39.0 Urinary tract infection, site not specified; K29.01 Acute gastritis with bleeding; I48.91 Unspecified atrial fibrillation; R19.4 Change in bowel habit; R13.10 Dysphagia, unspecified; I95.9 Hypotension, unspecified